=== PATIENT | female | born 1935 | race Caucasian/White ===

== ENCOUNTER 2019-03-08 06:14 | Inpatient (IN) | payer MEDICARE, SELFPAY ==
--- NOTE | 2019-03-02 09:54 | HP.PCM_ITS ---
History and Physical Patient Name: Kelly Hoffman : 1935 From: ANABEL BONILLA PA-C DATE OF SURGERY: 03/08/2019 SCHEDULED PROCEDURE: Left total hip arthroplasty HISTORY OF PRESENT ILLNESS: Preoperative history and physical exam was performed on March 11, 2019. This is an 83-year-old female who is been having ongoing pain in her left hip for the past 1 year. Pain can reach a size a 10/10 with activity. Pain has been intermittent, dull, aching, sharp. She has increased pain going up and down stairs, sitting, and getting up from a seated position. Patient has difficult time with activities of daily living including showering, getting dressed, housework, shopping, and picking things up from the floor. She has difficult time with exercises due to pain. Patient feels unsafe walking long distances without a cane. Patient has tried conservative measures consisting of rest with minimal relief. Patient has tried water therapy and home exercises with minimal relief. She has been on tramadol for pain control. Patient denies previous surgery on the left hip. She has used a cane and walker in the past 2 months. After failing conservative measures and discussing treatment options with Dr. Aayush Hoffman, the patient would like to proceed with a left total hip arthroplasty. We are obtaining surgical clearance from her primary care physician Dr. Eddie Hoffman. Patient currently denies any chest pain, shortness of breath, fevers chills, recent infections. Patient does have a medical history pertinent for previous blood clot and pulmonary embolism after her back surgery in 2013. She does have a history of a right total hip arthroplasty in 2004. REVIEW OF SYSTEMS: ROS: Const: Denies change in appetite, fever and weight change. CV: Denies chest pain, heart murmur and irregular heartbeat. Resp: Reports shortness of breath, but denies cough, pneumonia, tuberculosis and wheezing. GI: Reports constipation, but denies diarrhea, heartburn, nausea, rectal itching, bloody stools and vomiting. : Reports incontinence. Musculo: Reports pain and trouble walking, but denies leg swelling and weakness. Skin: Reports history of shingles, but denies Raynaud's and tattoo. Neuro: Denies ambulatory dysfunction, dizziness, numbness/tingling and tremor. Psych: Reports insomnia, but denies anxiety and stress. Jeffrey/Lymph: Reports past transfusion, but denies anemia and bleeding/bruising tendency. Reviewed and updated. PAST MEDICAL HISTORY: Advance Care Plan: Other Directive, POA Effective Date: 01/30/2019 Other Directive, LIVING WILL Effective Date: 01/30/2019 PMH: Medical Problems: Arthritis, History Of Phlebitis, Pulmonary Embolism, Hypercholesterolemia, Acid Reflux Accidents: None Surgical Hx: Knee Arthroscopy Rt - 1987 [facility] Carpal Tunnel Release LT - 1987 [facility] Carpal Tunnel Release RT - 1987 [facility] Hip Replacement RT - 2004 [facility] DR. CHAO Knee Replacement Rt - 2006 [facility] DR. CHAO Laminectomy - 2013 DR. CANDELARIO CASTAÑEDA Anesthesia Complications: None Assistive Devices: Glasses, Cane, Walker Reviewed and updated. SOCIAL HISTORY: SH: Marital: .Occupation: Retired.Work Status: Housewife.Hand Dominance: Right-handed. Personal Habits: Cigarette Use: Never Smoked Cigarettes.Smokeless Tobacco: Never Used Smokeless Tobacco.E-Cigarette Use: Never used.Alcohol: Occasionally.Drug Use: Denies Use.Enjoy Exercising: Exercises 1-3 X/Week. Reviewed, no changes. VITALS: Ht: 58 Wt: 192lb Wt k.091 BMI: 40.1 BP: 136/76 Pulse: 81 Resp: 20 T: 98.1 T: 36.7C ALLERGIES: Morphine Dilaudid MEDICATIONS: Pantoprazole Sodium 40 mg 1 by mouth every day, Fenofibrate 160 mg 1 by mouth every day, Multivitamin Adult 1 tab by mouth daily, Fish Oil 1000 mg 1 capsule 1x/day by mouth, Calcium 1200 3588-0514 MG-Unit 1 tab PO bid, Vitamin D 1 tab by mouth daily, Aspirin Adult 325 mg 1 tab PO daily, Ultram 50 mg 1-2 by mouth q6 hour as needed pain, Preservision Areds 1 cap PO daily PRE-OP EXAM: General appearance:NORMAL Other: Eyes: Conjunctivae and lids: NORMAL Pupils: ERR Ears, Nose, Mouth, and Throat: NORMAL Other: Inspection of lips, teeth and gums: NORMAL Other: Neck: Examination of neck: no masses noted. Respiratory: Assessment of respiratory effort: NORMAL Other: Auscultation of lungs: clear to auscultation no wheezes, rhonchi or rales. Cardiovascular: Auscultation of heart: regular rate and rhythm, no murmurs, gallops or rubs. Gastrointestinal: Exam of abdomen: soft, nontender, nondistended bowel sounds present. PHYSICAL EXAMINATION: Patient walks with an antalgic gait. Left hip range of motion 90 flexion with increased pain. Internal rotation is limited to 10, external rotation 45. Strength 4/5 hip flexion. Sensation intact to light touch. Neurovascularly intact. IMAGING STUDIES: X-rays were obtained at [facility] on March 11, 2019 including 2 views AP pelvis and AP left hip reveals joint space narrowing with osteophyte formation with moderate to severe arthrosis of the left hip. Centrally there is complete loss of joint space with inferior osteophyte formation. No acute finding for fracture or dislocation. No lytic or blastic lesions. There is evidence of previous lumbar fusion and right total hip arthroplasty. IMPRESSION: 1. Severe left hip osteoarthritis 2. History of previous blood clot and pulmonary embolism proximally 5 years ago 3. Hypercholesterolemia 4. Acid reflux PLAN: Dr. Aayush Hoffman did discuss and review with the patient all treatment options including surgical versus nonsurgical options. Patient does wish to proceed with the above-stated procedure. Potential risks, benefits, and complications of the procedure were discussed in detail including but not limited to , infection, nerve and blood vessel damage, persistent pain, numbness, tingling, paresthesias, blood clot, pulmonary embolism, and requirement for possible further surgery. The patient expressed full understanding and has no further questions for the doctor. Patient does agree to proceed with the above-stated procedure and has signed the surgery consent form. This dictation was created using voice recognition software. Phonetic and/or grammatical errors may exist. ___ I have re-examined the patient. There are no clinical changes since date of exam. ___ See progress notes for changes. ___ Dictated on admission Date: Time: Signature:
[2019-03-02 15:17] VITALS: BP 124/69; PULSE 84; RESP 17; TEMP 36.6; O2SAT 97; BMI 38.9
--- NOTE | 2019-03-02 15:52 | SDCEKG_ITS ---
Test Reason : Blood Pressure : / mmHG Vent. Rate : 070 BPM Atrial Rate : 070 BPM P-R Int : 110 ms QRS Dur : 070 ms QT Int : 386 ms P-R-T Axes : 000 016 040 degrees QTc Int : 416 ms Sinus rhythm with short OK Low voltage QRS Borderline ECG Confirmed by LAST INFANTE, TTAE ([id number]), editor index KAROL ODOM ([id number]) on 03/08/2019 9:46:54 A M Referred By: Aayush Hoffman Confirmed By:LAURA NI MD
[2019-03-02 16:33] LABS: Absolute Neutrophil Count 3.4 X10^3/uL (2.0-7.7); Basophil# 0.04 X10^3/uL; Basophil% 0.5 % (0-1); Eosinophil# 0.21 X10^3/uL; Eosinophils% 2.5 % (0-5); Hematocrit 46.2 % (37-47); Hemoglobin 14.6 g/dL (12.0-15.0); Lymphocyte % 51.4 % (19-41); Mean Corp Hgb Conc 31.6 g/dL (32-36); Mean Corpuscular Hgb 27.7 pg (27.0-32.0); Mean Corpuscular Volume 87.5 fL (81-99); Mean Platelet Vol. 9.1 fl (6.2-12.0); Monocyte# 0.49 X10^3/uL; Monocyte% 5.7 % (0-10); NRBC Flagged by Analyzer 0 % (0-5); Neutrophil # 3.39 X10^3/uL (2.7-7.7); Neutrophil % 39.5 % (47-70); Platelet Count 288 K/mm3 (150-450); RBC Distribution Width CV 13.5 % (11.6-14.6); RBC Distribution Width SD 43.7 fl (35.1-43.9); Red Blood Count 5.28 M/mm3 (4.2-5.4); White Blood Count 8.6 K/mm3 (4.4-11.0)
[2019-03-02 16:51] LABS: Anion Gap 5 (5-15); BUN 23 mg/dL (7-18); BUN/Creat Ratio 16.7 RATIO (10-20); Calcium,Total 10.1 mg/dL (8.5-10.1); Chloride 109 mmol/L (98-107); Creatinine, Serum 1.38 mg/dL (0.55-1.02); EST Glomerular Filtration Rate 39 mL/min (>60); Est Glom Filt Rate - Afr Amer 47 mL/min (>60); Estimated Creatinine Clearance 43.42 ml/min; Glucose 93 mg/dL (74-106); Potassium 4.5 mmol/L (3.5-5.1); Sodium Level 143 mmol/L (136-145)
[2019-03-08] VITALS (12 sets, daily range): BP systolic 108–152; BP diastolic 48–87; PULSE 73–96; RESP 16–18; TEMP 36.3–37.1; O2SAT 92–100; BMI 38.9; BMI 39.0
--- NOTE | 2019-03-08 07:16 | RAD_ITS ---
STUDY: X-RAY - PELVIS AND LEFT HIP REASON FOR EXAM: Female, 83 years old. Left hip arthroplasty. Postoperative evaluation. TECHNIQUE: 2 views of the pelvis and hip. COMPARISON: March 08, 2019 intraoperative exam. FINDINGS: Status post left hip arthroplasty. Surgical hardware intact/well aligned. No acute complications. Postoperative soft tissues overlie the left hip. Uncomplicated remote right hip arthroplasty. Partially visualized surgical fixation hardware. Pelvic phleboliths. RAD/Hip Min 2 Views (Portable) IMPRESSION: Uncomplicated recent left hip arthroplasty Uncomplicated remote right hip arthroplasty Electronically Signed: Maximiliano Hidalgo DO at 11:35 EDT Tel , Service support ,
[2019-03-08 07:36] LABS: Bedside Glucose 88 mg/dL (70-110)
[2019-03-08] MEDS: Celecoxib 200 MG Capsule 400 MG PO (07:46)
[2019-03-08] MEDS: Acetaminophen 500 MG Tablet 1000 MG PO ×3 (07:47→21:54)
[2019-03-08] MEDS: Lactated Ringers 1,000 ML 125 ML IV ×2 (07:47→21:55)
[2019-03-08] MEDS: Magnesium Sulfate 4gm/100mL 4 GM/100 ML IV.SOLN. IV (07:48)
[2019-03-08] MEDS: Lactated Ringers 1,000 ML 999 ML IV (07:58)
--- NOTE | 2019-03-08 08:15 | RAD_ITS ---
STUDY: X-RAY - PELVIS AND LEFT HIP REASON FOR EXAM: Female, 83 years old. Hip replacement. TECHNIQUE: 3 intraoperative fluoroscopic views. COMPARISON: None. FINDINGS: Intraoperative fluoroscopy. Reaming device with subsequent removal. Status post left hip arthroplasty. Surgical hardware intact/well aligned. No acute complications. Uncomplicated removal of right hip arthroplasty. Limited soft tissue and osseous details. RAD/Hip 1 view with Pelvis IMPRESSION: Uncomplicated intraoperative left hip arthroplasty Uncomplicated removal of right hip arthroplasty Please see surgeon's note Electronically Signed: Maximiliano Hidalgo DO at 10:53 EDT Tel , Service support ,
[2019-03-08] MEDS: Cefazolin 2 GM in 0.9% Normal Saline 100 ML IV (08:17)
--- NOTE | 2019-03-08 09:58 | OP.PCM_ITS ---
Report of Operation Date of Procedure: 03/08/19 Pre-Operative Diagnosis: Left hip primary osteoarthritis Post-Operative Diagnosis: Left hip primary osteoarthritis with loose bodies Surgery/Procedure Performed:: Left direct anterior total hip replacement, minimally invasive Description of Surgical Findings:: Stable hip, equal leg lengths. Intra-articular loose bodies were noted topographical engineer: Terri Rahman Type of Anesthesia:: General Anesthesiologist: Mani Soto Special Medications: 2 g Ancef, 2 g of TXA were lavaged in the wound for 1 minute followed by a irrigation., 10 mg Decadron, joint cocktail (30 mL of 0.5% Ropivicaine, 1000 units of epinephrine, 30 mg of Toradol) Specimen's removed: Bony cuts Estimated Blood Loss (mL): 150 Fluids Replaced: 900 mL crystalloid Description of Procedure: Components used: 1. Accolade 2 Yaa femoral stem size 4 127? 2. Yaa trident 2 acetabular shell size 52 mm 3. Yaa X3 polyethylene E 42 4. Marshall Biolox delta 28mm, 0mm femoral head 5. Yaa MDM liner E Brief history operative indications: 83f yo F who failed conservative measures for their hip osteoarthritis. X-rays were consistent with osteoarthritis including joint space narrowing, osteophyte formation and subchondral cysts. Total hip replacement was discussed with the patient with risks and benefits including but not limited to blood loss, DVTs, PEs, neurovascular damage, dislocation, general risks of anesthesia including loss of life. Patient demonstrated an understanding medical clearance is obtained the patient was consented for surgery. Procedure: On the date of procedure the patient's L hip was marked in the preoperative area. Patient was then taken back to the operating room where anesthesia assumed control of the C-spine and airway and administered anesthetic. Patient was transferred to the operating table and placed in the supine position. The hips were placed at the break of the bed and a sacral bump was placed. The L lower extremity was then prepped out in a sterile fashion using chlorhexidine while the surgeon scrubbed. The PA was vital in the positioning of the patient. Upon reentering the room the L lower extremity was draped in the standard orthopedic fashion and the incision was marked. A timeout was called and everyone agreed upon the side, the site, the procedure be performed, antibody given, and patient's identity. At this time incision was made through skin, subcutaneous tissue, and fat down to fascia. The fascia was then incised and the TFL was retracted laterally. A retractor was placed on the lateral border of the femoral neck. Attention was directed to the inferior portion of the approach and all crossing vessels were identified and appropriately coagulated. A retractor was then placed on the medial portion of the femoral neck. The anterior capsule was then cleared of all soft tissue and then H shaped capsulotomy was made. The retractors were then placed inside the capsule. The femoral neck was identified and a cleanup cut was made. At this time a power corkscrew was used to remove the femoral head. Attention was then turned toward the acetabulum where the soft tissues were appropriately retracted and the acetabulum was sequentially reamed to 52 mm. A 52 mm cup was then selected and impacted into place. Acetabular liner was impacted into place and locking mechanism was verified. The position of the acetabular cup was then verified under live fluoroscopy. Attention was then turned to the femur. Soft tissue releases on the medial and lateral femoral neck were appropriately done, the leg was externally rotated and lateralized. A Reyes retractor was placed medially and proximally to the greater trochanter this allowed appropriate visualization and exposure of the femoral canal. Rongeour was then used to remove excess lateral bone. A canal finder and entry broach were used to open the proximal canal. Once we verified we were down the femoral canal we subsequently broached up to a size 4 femur. The appropriate neck was placed in the previously selected head was trialed with a 0 mm neck. Traction was pulled and the hip was reduced with internal rotation. Once it was appropriately reduced and stability was checked. There was minimal shuck, equal leg lengths and appropriate stability with hyperextension and external rotation as well as with 90? flexion and internal rotation. Fluoroscopy was then also used to verify the position of the components and leg lengths using the contralateral side for comparison. The trial components were then dislocated the proximal femur was again exposed and the components were removed from the wound. The final components were verified and opened. The wound was copiously irrigated out with normal saline. The acetabulum was checked for any residual debris. The final components were placed and impacted. Traction and internal rotation were again used to reduce the hip. After adequate reduction the hip remained stable with appropriate leg lengths. The final components were once again checked with live fluoroscopy and were found to be satisfactory. The wound was then copiously irrigated with normal saline once more, and hemostasis was obtained. Closure was then done using #1 Vicryl runner to close the fascia. A 2-0 vicryl interuppted sutures were used to close the subcutaneous skin. A 3-0 Monocryl and Steri-Strips were used for final skin closure. A Silverlon dressing was placed. Patient was awakened by anesthesia and transferred to the [place]. Patient was then transferred to the PACU for recovery. Postoperative plan: Patient will get 24 hours postop antibiotics. Patient will get in-house physical therapy and will be weight-bear as tolerated. Patient will follow up in office in 2 weeks for a wound check and x-rays. Grafts/Implants Used: Marshall - Complications No intraoperative complications - Admit VTE Documentation VTE Present on Admission: No VTE Mechan Device Prophylaxis: SCD's, Thigh High TOLU Hose VTE Pharm Prophylaxis ordered?: Yes
[2019-03-08] MEDS: Ensure Surgery 237 ML LIQUID PO ×2 (13:25→17:38)
[2019-03-08] MEDS: oxyCODONE 5 MG Tablet 2.5 MG PO (13:30)
[2019-03-08] MEDS: Senna/Docusate Sodium 1 Tablet 2 TABLET PO ×2 (14:10→21:54)
[2019-03-08] MEDS: Cefazolin 1 GM/50 ML BAG IV ×2 (16:07→23:58)
[2019-03-09 03:06] VITALS: BP 132/52; PULSE 64; RESP 16; TEMP 36.4; O2SAT 97
[2019-03-09] MEDS: Rivaroxaban 10 MG Tablet PO (05:28)
[2019-03-09] MEDS: Acetaminophen 500 MG Tablet 1000 MG PO ×2 (05:29→13:48)
[2019-03-09 06:39] LABS: Hematocrit 37.4 % (37-47); Hemoglobin 11.6 g/dL (12.0-15.0); Mean Corpuscular Hgb 27.4 pg (27.0-32.0); Mean Corpuscular Volume 88.4 fL (81-99); Mean Platelet Vol. 9.7 fl (6.2-12.0); Platelet Count 221 K/mm3 (150-450); RBC Distribution Width SD 44.7 fl (35.1-43.9); Red Blood Count 4.23 M/mm3 (4.2-5.4); White Blood Count 13.7 K/mm3 (4.4-11.0)
--- NOTE | 2019-03-09 06:55 | PCM.PN.ORT ---
Subjective: Patient is doing well. No acute events overnight. Pain is mostly controlled with Tylenol with occasional dose of oxycodone. Patient notes she is been comfortable and been able to go to the bathroom with her walker without significant increases in pain. She tolerated therapy well yesterday. No chest pain or shortness of breath. No calf pain. Objective: Postoperative radiographs show stable well-placed left total hip replacement. - Physical Exam General: Alert, Oriented x3, Cooperative Extremities: - - Left lower extremity: Dressing is clean dry and intact Sensations intact to light touch saphenous, sural, superficial peroneal, deep peroneal, and tibial distributions Motors intact EHL, DF, PF calves are soft and supple Vital Signs Temp Pulse Resp BP Pulse Ox 97.5 F L 64 16 132/52 H 97 03/09/19 03:06 03/09/19 03:06 03/09/19 03:06 03/09/19 03:06 03/09/19 03:06 Oxygen Flow Rate (L/min) 6 Oxygen Delivery Method Room Air Weight: 192 lb 14.472 oz Body Mass Index (BMI) 38.9 Intake and Output for Last 24 Hours 03/07/19 03/08/19 03/09/19 23:59 23:59 23:59 Intake Total 3096.25 / 3216.25 778.33 / 778.33 Balance 3096.25 / 3216.25 778.33 / 778.33 Laboratory Tests Past 24 Hrs 03/09/19 03/09/19 05:58 05:58 WBC 13.7 H RBC 4.23 Hgb 11.6 L Hct 37.4 MCV 88.4 MCH 27.4 MCHC 31.0 L RDW Std Deviation 44.7 H RDW Coeff of Maliha 14.0 Plt Count 221 MPV 9.7 Sodium Pending Potassium Pending Chloride Pending Carbon Dioxide Pending Anion Gap Pending BUN Pending Creatinine Pending Est GFR (MDRD) Af Amer Pending Est GFR (MDRD) Non-Af Pending BUN/Creatinine Ratio Pending Glucose Pending Calcium Pending POC Glucose 03/08/19 07:17 POC Glucose 88 Medical Necessity - Tobacco Use Smoking Status: Never smoker Assessment/Plan Postop day 1 left direct anterior total hip replacement 1. DVT prophylaxis: Patient has history of PE Xarelto for 2 weeks followed by aspirin twice daily. 2. Pain control: Pain is well controlled with Tylenol and anti-inflammatories at this time. Educated patient on sparing use of narcotics. 3. Physical therapy: Patient will need stair training to get into her house she has a couple of stairs. She is done well with therapy so far. She has therapy set up for outpatient starting early next week. If she stays long enough today should have 2 therapies prior to discharge. 4. Disposition: Patient is done well. She had no acute events overnight. She is doing well with physical therapy. As long she continues to do well with therapy today we discussed discharged home today. She will need to work with the short flight of stairs in therapy. Discharge instructions were gone over with the patient today. [facility] Office:
[2019-03-09 07:01] LABS: Anion Gap 6 (5-15); BUN 24 mg/dL (7-18); BUN/Creat Ratio 17.6 RATIO (10-20); Calcium,Total 9.1 mg/dL (8.5-10.1); Chloride 110 mmol/L (98-107); Creatinine, Serum 1.36 mg/dL (0.55-1.02); EST Glomerular Filtration Rate 40 mL/min (>60); Est Glom Filt Rate - Afr Amer 48 mL/min (>60); Estimated Creatinine Clearance 44.05 ml/min; Glucose 122 mg/dL (74-106); Sodium Level 144 mmol/L (136-145)
[2019-03-09] MEDS: Famotidine 20 MG Tablet PO (08:13)
[2019-03-09] MEDS: Fenofibrate 145 MG Tablet PO (08:13)
[2019-03-09] MEDS: Pantoprazole Sodium 40 MG Tablet PO (08:14)
[2019-03-09] MEDS: Calcium Carbonate 500 MG Tablet 1000 MG PO (08:14)
[2019-03-09] MEDS: Meloxicam 7.5 MG Tablet PO (08:14)
[2019-03-09] MEDS: Multivitamins,Ther W-Minerals Tablet 1 TABLET PO (08:14)
[2019-03-09 08:15] VITALS: BP 124/46; PULSE 81; RESP 16; TEMP 36.9; O2SAT 98
[2019-03-09] MEDS: Ensure Surgery 237 ML LIQUID PO (08:15)
--- NOTE | 2019-03-09 08:42 | PCM.DC.THR ---
Discharge Diet: No Restrictions Discharge Activity: May Not Drive - while taking narcotic pain medications. May shower in (days): 1 - Turn dressing away from water Ice area for (Minutes): 20 - Every 1-2 hours while awake Weight Bearing Status: Weight bearing as tolerated Elevate: Operative Extremity Additional Activity Instructions:: Wear elastic stockings for 2 weeks. DO NOT use alcohol with narcotic pain medication. DO NOT make important decisions while taking narcotic medication. If you have problems with taking your medication (rash, itching, nausea, etc.) call the office at once. Call your doctor if your incision/area has: Increased Pain/ Swelling, Increased Redness, Foul Smelling Discharge Call your doctor if you observe: Fever of 101 or Higher Remove Dressing in (days):: 4 - Okay to remove dressing on March 13, 2019 Additional Instructions: Follow orthopedic postop instructions Allergies/Adverse Reactions: Allergies gabapentin Allergy (Verified 03/08/19 10:42) Other Made me go crazy hydromorphone [From Dilaudid] Allergy (Verified 03/08/19 07:27) Vomiting morphine Allergy (Verified 03/08/19 07:27) Vomiting paregoric Allergy (Verified 03/08/19 07:27) Vomiting Medications to take at Discharge Aspirin 325 mg PO DAILY@0800 03/02/19 Calcium Carbonate [Calcium] 1,200 mg PO DAILY 03/02/19 Cholecalciferol (VIT D3) [Vitamin D3] 1,000 unit PO DAILY 03/02/19 Fenofibrate 160 mg PO DAILY 03/02/19 Multivitamin/Iron/Folic Acid [Centrum Adults Tablet] 1 ea PO DAILY 03/02/19 Hutchinson-3/Dha/Epa/Fish Oil [Fish Oil 1,000 mg Softgel] 1 ea PO DAILY 03/02/19 Pantoprazole Sodium [Protonix] 40 mg PO DAILY 03/02/19 Vit C/E/Zn/Coppr/Lutein/Zeaxan [Preservision Areds 2 Softgel] 1 ea PO DAILY 03/02/19 Acetaminophen [Tylenol] 1,000 mg PO Q8 tab 03/09/19 Ensure Surgery 237 ml PO BID #30 liquid 03/09/19 Famotidine [Pepcid] 20 mg PO DAILY #30 tab 03/09/19 Meloxicam [Mobic] 7.5 mg PO BID #30 tab 03/09/19 Oxycodone [Oxyir] 2.5 mg PO Q4H PRN PRN #30 tab 03/09/19 Rivaroxaban [Xarelto] 10 mg PO DAILY@0600 #14 tab 03/09/19 Senna/Docusate Sodium [Senokot-S] 2 tab PO BID tab 03/09/19 The following prescriptions were given: Ensure Surgery 237 ml PO BID #30 liquid Prescription Printed Meloxicam [Mobic] 7.5 mg PO BID #30 tab Transmission Status: Received by [facility] Oxycodone [Oxyir] 2.5 mg PO Q4H PRN PRN #30 tab PRN Reason: Pain Score 4-10/10 Transmission Status: Received by [facility] Famotidine [Pepcid] 20 mg PO DAILY #30 tab Transmission Status: Received by [facility] Rivaroxaban [Xarelto] 10 mg PO DAILY@0600 #14 tab Transmission Status: Received by [facility] Primary Care Physician: Eddie Hoffman MD [Primary Care Provider] - Test Results: Test results from this visit will be discussed in further detail at your follow-up appointment, if applicable. Please Follow Up With: Physical Therapy @ [facility] When: 03/13/19 Please Follow Up With: Ceferino Avila PA-C When: 03/22/19 @ 9:45 am
--- NOTE | 2019-03-09 11:15 | CASEMGMT ---
NELLIE SON Face to Face with patient for initial transition planning/care coordination assessment. NELLIE SON introduced self and role at [facility]. Patient sitting in chair, alert and oriented, family at bedside. Patient willing to participate in assessment and is able to answer all questions appropriately. Care providers, pharmacy, and demographics verified. Patient wishes to discharge home and is setup with [facility] in [place] for outpatient therapy. Patient states she has no further needs or concerns at this time. CM to follow for discharge planning needs that may arise. PCP: Ailyn Hoffman Specialists: jessika Musa; dimple Wright [facility]acy: [facility] Insurance: [employer] Prescription Benefit: yes Living Will/HPOA: yes, son Eddie Hoffman HPOA LNOK: , children Living Arrangements: Patient lives with , granddaughter and her family in single story home with finished basement. Patient states she was independent at home prior to surgery. Transportation: , family DME/HHC: Patient states she has shower chair, raised toilet, cane, walker, and wheelchair at home. Patient has outpatient therapy setup at [facility] in [place] for Wednesday. Disposition Plan: Patient to discharge home with outpatient therapy, family support, and follow-up plans in place. Caitlyn EASLEY, RN, CM
[2019-03-09 14:55] VITALS: BP 128/66; PULSE 80; RESP 18; TEMP 37.2; O2SAT 99
[2019-03-09] MEDS: oxyCODONE 5 MG Tablet 2.5 MG PO (14:56)
== END 2019-03-09 17:57 | disposition home or self-care (01) | DRG 470 ==
LOC: ACINP 06:15 → MS3 08:16
PROVIDERS: Admitting Provider Specialist; Family Provider Family Medicine; PCP Family Medicine; Referring Provider Specialist; Visit Provider Specialist
PROC: 0SRB04A Replacement of Left Hip Joint with Ceramic on Polyethylene Synthetic Substitute, Uncemented, Open Approach (ICD-10-PCS; CPT 27284; principal; 2019-03-08 07:50)
DX: M16.12 Unilateral primary osteoarthritis, left hip (principal); M24.052 Loose body in left hip; K21.9 Gastro-esophageal reflux disease without esophagitis; E78.00 Pure hypercholesterolemia, unspecified; Z96.641 Presence of right artificial hip joint; Z86.711 Personal history of pulmonary embolism
CPT/HCPCS: 36415; 73501; 73502; 76000; 80048; 82962; 85025; 85027; 87081; 93005; 97110; 97162; 97166; 97530; 97535; 99251; C1776; J7120; G0463; J2405

== ENCOUNTER → 2019-04-25 09:12 | Outpatient (CLI) | payer MEDICARE, SELFPAY ==
[2019-03-08 12:15] VITALS: BMI 38.9
--- NOTE | 2019-04-25 09:14 | RAD_ITS ---
PROCEDURE: Fluoroscopic guided right shoulder Injection DATE: April 25, 2019. INDICATION: Female, 83 years old. Chronic shoulder pain. PHYSICIAN: Sean Quinatna M.D. MEDICATIONS: 12 mg of betamethasone and 4 cc of 1% lidocaine. 2% Lidocaine administered subcutaneously for local anesthesia. ACCESS SITE: Right shoulder. NEEDLE: 22-gauge spinal needle. FLUOROSCOPY TIME (if supplied): (1:04) minutes/seconds FINDINGS: The risks, benefits, and alternatives to the procedure were explained to the patient. The specific risks of bleeding, infection, and neurovascular injury were detailed and accepted. Witnessed informed consent was obtained. A 22-gauge spinal needle was positioned under renographic fluoroscopic localization. Approximately 2 cc of Isovue-300 instilled for localization purposes. Medication was then injected. The patient tolerated the procedure well without any immediate complications. RAD/Inj/Asp Jorge Luis Jt Should/Hip/Knee IMPRESSION: 1. Successful fluoroscopic guided right shoulder injection. Electronically Signed: Sean Quintana, at 10:15 EST , Service support ,
== END ==
PROVIDERS: Family Provider Family Medicine; PCP Family Medicine; Referring Provider Specialist; Visit Provider Specialist
DX: M25.511 Pain in right shoulder (principal)
CPT/HCPCS: 20610; 77002; Q9967; J0702

== ENCOUNTER → 2021-03-07 | Outpatient (CLI) | payer MEDICARE, SELFPAY | END | disposition home or self-care (01) | PROVIDERS: PCP Family Medicine; Referring Provider Physician Assistant Surgical; Visit Provider Physician Assistant Surgical | DX: Z11.52 Encounter for screening for COVID-19 (principal) | CPT/HCPCS: 87635; U0005; U0003 ==

== ENCOUNTER 2023-02-20 06:53 | Inpatient (IN) | payer MEDICARE, SELFPAY ==
[2023-02-20] VITALS (29 sets, daily range): BP systolic 84–136; BP diastolic 60–94; PULSE 51–122; RESP 16–29; TEMP 36.3–37.1; O2SAT 91–99; BMI 40.1; BMI 40.4
--- NOTE | 2023-02-20 07:05 | EKG12_ITS ---
Test Reason : AFIB Blood Pressure : / mmHG Vent. Rate : 120 BPM Atrial Rate : 000 BPM P-R Int : 000 ms QRS Dur : 076 ms QT Int : 338 ms P-R-T Axes : 000 056 052 degrees QTc Int : 477 ms Critical Test Result: STEMI Atrial fibrillation with rapid ventricular response ST elevation, consider posterior lateral injury or acute infarct ACUTE OH / STEMI Abnormal ECG Confirmed by KESHAWN INFANTE, BELLE ([id number]), assistant film editor DERRICK NOGUEIRA ([id number]) on 02/23/2023 2:47:26 PM Referred By: Estelle Villegas Confirmed By:BELLE LIAO MD
--- NOTE | 2023-02-20 07:12 | EDS_ITS ---
HPI History of Present Illness Chief Complaint: Weakness Narrative Narrative: Presents by private vehicle reported an hour ago sudden weakness all over diffuse sweatiness and dry heaving. Denies any direct chest pressure or back pain. No cardiac history. History of hyperlipidemia. Denies hypertension or diabetes. Reports was unable to sleep throughout the night however denied any specific symptoms until an hour ago. Currently only has symptoms of generalized weakness. Prior similar symptoms: No PFSH PFSH Home Medications aspirin 325 mg tablet 325 mg PO DAILY@0800 [facility] 03/02/19 [History Last Taken Unknown] calcium carbonate 600 mg calcium (1,500 mg) tablet 1,200 mg PO DAILY supplement 03/02/19 [History Last Taken Unknown] cholecalciferol (vitamin D3) 25 mcg (1,000 unit) tablet 1,000 unit PO DAILY supplement 03/02/19 [History Last Taken Unknown] fenofibrate 160 mg tablet 160 mg PO DAILY cholesterol 03/02/19 [History Last Taken Unknown] multivitamin-ferrous fumarate-folic acid 18 mg-400 mcg tablet 1 ea PO DAILY supplement 03/02/19 [History Last Taken Unknown] omega 3-qlh-dvn-fish oil 300 mg-1,000 mg capsule 1 ea PO DAILY supplement 03/02/19 [History Last Taken Unknown] vit C 250 mg-vit E 90 mg-zinc 40 mg-copper 1 zp-rwobse-mdkduh capsule 1 ea PO DAILY supplement 03/02/19 [History Last Taken Unknown] acetaminophen 500 mg tablet 1,000 mg (2 x 500 mg) PO Q8 03/09/19 [Rx Last Taken Unknown] famotidine 20 mg tablet 20 mg PO DAILY #30 tabs 03/09/19 [Rx Last Taken Unknown] meloxicam 7.5 mg tablet 7.5 mg PO BID #30 tabs 03/09/19 [Rx Last Taken Unknown] nut.tx.comp. immune systm,reg 0.08 gram-1.4 kcal/mL oral liquid 237 ml PO BID ##30 03/09/19 [Rx Last Taken Unknown] sennosides 8.6 mg-docusate sodium 50 mg tablet 2 tab PO BID 03/09/19 [Rx Last Taken Unknown] Allergy/AdvReac Type Severity Reaction Status Date / Time gabapentin Allergy Other Verified 02/20/23 07:33 hydromorphone [From Dilaudid] Allergy Vomiting Verified 02/20/23 07:33 morphine Allergy Vomiting Verified 02/20/23 07:33 paregoric Allergy Vomiting Verified 02/20/23 07:33 Surgical History History of back surgery History of knee surgery Social History Smoking Status: Never smoker ROS ROS ED Constitutional Constitutional ED: Reports sweats; Denies chills or fever(s) Eyes Eyes: Denies change in vision ENT ENT ED: Denies dysphagia or sore throat Cardiovascular Cardiovascular: Denies chest pain, leg edema, palpitations or racing heartbeat Respiratory/Chest Respiratory/Chest: Denies cough, dyspnea or dyspnea on exertion Gastrointestinal Gastrointestinal: Reports nausea and vomiting; Denies abdominal pain or diarrhea Genitourinary Genitourinary ED: Denies dysuria, hematuria or urinary frequency Musculoskeletal Musculoskeletal: Denies back pain, extremity pain or neck pain Integumentary Denies rash or wounds Neurologic Neurologic: Reports weakness; Denies headache(s) or paresthesias EXAM Physical Exam Const Vital Signs: 02/20/23 06:56 02/20/23 07:07 02/20/23 07:05 Temperature 98.7 F Temperature Source Oral Pulse Rate 114 H Respiratory Rate 21 H 19 H Blood Pressure 115/94 H 113/82 H Blood Pressure Mean 101 Pulse Ox 93 Oxygen Delivery Method Room Air Room Air Oxygen Flow Rate (L/min) 02/20/23 07:21 Temperature Temperature Source Pulse Rate 97 Respiratory Rate 16 Blood Pressure 98/75 Blood Pressure Mean 82 Pulse Ox 91 Oxygen Delivery Method Nasal Cannula Oxygen Flow Rate (L/min) 4 Positive well nourished and well developed General Appearance ED: well developed and NAD HEENT Reports moist mucous membranes normocephalic and atraumatic Eyes PERRL, EOMs intact bilaterally and conjunctivae normal General Eye ED: Yes normal appearance of both eyes Neck no lymphadenopathy and supple General: Negative for tenderness Chest Wall Chest: Negative for tenderness Resp normal respiratory effort and normal air movement Effort and Inspection: symmetric chest movement; Negative for respiratory distress Cardio regular rate, regular rhythm and no murmurs Rate: tachycardic Peripheral Pulses: pulses 2+ throughout GI normal to inspection, nondistended, normoactive bowel sounds and non-tender Palpation: Negative for guarding or rebound tenderness present Back/Spine no CVA tenderness and no thoracic nor lumbar tenderness Extremity normal to inspection General Extremety ED: Negative for edema or tenderness General Extremity: Negative for edema Neuro oriented x3 and no sensory deficits noted Sensorium / Orientation: awake and alert Skin no rashes or lesions noted and no wounds MDM MDM MDM Narrative Medical decision making narrative: Interventions / MDM: Differential diagnosis: STEMI, ACS Diagnosis considered but do not suspect: N/A My EKG interpretation: Sinus rate of 120,'s ST elevations lateral leads with reciprocal depressions on the anterior leads. The chronically reading A-fib however appears more sinus rhythm with Q waves noted on inferior leads. Imaging independently reviewed and interpreted by myself: External documents reviewed: N/A Test considered but not ordered:N/A ED course: EKG was given to me prior to seeing the patient. Concerning STEMI. This was activated. Aspirin ordered. Cardiac labs. I spoke with interventional cardiology Dr. Villegas, EKG sent to him agrees. History of Brilinta heparin and metoprolol 10 mg IV ordered per his request. Patient updated. I did speak with hospitalist Dr. Marcial updated on findings and pending cath for ICU placement. per nursing after 5 mg IV Lopressor heart rate 90s however blood pressure systolic 90s. Withheld additional 5 mg. She was given fluids. Prior to going to [facility] mild chest pressure, fentanyl 25 mics IV was ordered. Patient taken to [facility] prior to chest x-ray. Results with patient in the cath creatinine 1.6, troponin at 973. Re-evaluation: stable Disposition discussed with patient/family/significant other: Patient and family Case discussed with consulting clinician: pet caregiver, [facility] list This note was generated with [employer] dictation software. It may contain incorrect words, spelling, and punctuation that were not noted in checking the note before signing. Lab Data Attestation: I reviewed the patient's lab results. Labs: Laboratory Results - last 24 hr 02/20/23 07:07 WBC 11.0 RBC 5.65 H Hgb 14.9 Hct 49.4 H MCV 87.4 MCH 26.4 L MCHC 30.2 L RDW Std Deviation 46.0 H RDW Coeff of [place] 14.4 Plt Count 240 MPV 9.6 Immature Gran % (Auto) 0.300 Neut % (Auto) 28.4 L Lymph % (Auto) 61.7 H [place] % (Auto) 5.1 Eos % (Auto) 3.9 Baso % (Auto) 0.6 Absolute Neuts (auto) 3.1 Absolute Lymphs (auto) 6.78 H Nucleated RBC % 0 PT 13.8 INR 1.1 APTT 25.0 Sodium 142 Potassium 4.0 Chloride 110 H Carbon Dioxide 26.0 Anion Gap 6 BUN 27 H Creatinine 1.62 H Estim Creat Clear Calc 35.46 Est GFR (MDRD) Af Amer 39 L Est GFR (MDRD) Non-Af 32 L BUN/Creatinine Ratio 16.7 Glucose 223 H Calcium 9.7 Troponin I High Sens 973 H* Critical Care Time Critical Care Time: Yes Critical care time (excluding procedures): 30-74 minutes, Discussing w/Patient &/or Family/Wagon Washer, Discussing w/Consultants, Arranging Admission or Transfer, Performing Direct Patient Care at Bedside and - (30 minutes) Discharge Plan Dx/Rx/DC Orders Clinical Impression: STEMI (ST elevation myocardial infarction), Tachycardia, Weakness, Renal insufficiency Disposition Disposition: Acute Care Hospital [facility]
[2023-02-20] MEDS: Heparin Injection (Vial) 5,000 UNIT/ML VIAL 5000 UNIT IV (07:14)
[2023-02-20] MEDS: Metoprolol Tartrate 5 MG/5 ML Vial 10 MG IV (07:14)
[2023-02-20] MEDS: Ondansetron 4 MG/2 ML Vial IV (07:14)
[2023-02-20 07:15] LABS: Absolute Lymphocyte Count 6.78 X10^3/uL (0.83-4.51); Absolute Neutrophil Count 3.1 X10^3/uL (2.0-7.7); Basophil# 0.07 X10^3/uL; Basophil% 0.6 % (0-1); Eosinophil# 0.43 X10^3/uL; Eosinophils% 3.9 % (0-5); Hematocrit 49.4 % (37-47); Hemoglobin 14.9 g/dL (12.0-15.0); Lymphocyte # 6.78 X10^3/ul (0.83-4.51); Lymphocyte % 61.7 % (19-41); Mean Corp Hgb Conc 30.2 g/dL (32-36); Mean Corpuscular Hgb 26.4 pg (27.0-32.0); Mean Corpuscular Volume 87.4 fL (81-99); Mean Platelet Vol. 9.6 fl (6.2-12.0); Monocyte# 0.56 X10^3/uL; Monocyte% 5.1 % (0-10); NRBC Flagged by Analyzer 0 % (0-5); Neutrophil # 3.11 X10^3/uL (2.7-7.7); Neutrophil % 28.4 % (47-70); POSITIVE DIFFERENTIAL YES; Platelet Count 240 K/mm3 (150-450); RBC Distribution Width CV 14.4 % (11.6-14.6); Red Blood Count 5.65 M/mm3 (4.2-5.4)
[2023-02-20] MEDS: TICAGRELOR 90 MG TABLET 180 MG PO (07:15)
[2023-02-20] MEDS: Aspirin 81 MG TAB.CHEW 324 MG PO (07:15)
[2023-02-20 07:18] LABS: Differential Indicated SCAN CRITERIA MET
[2023-02-20 07:23] LABS: International Normalized Ratio 1.1; Prothrombin Time (Protime)PT. 13.8 SECONDS (11.7-14.9)
--- NOTE | 2023-02-20 07:34 | PCM.HP.STD ---
HPI - General General Date of Admission: 02/20/23 Date of Service: 02/20/23 Chief Complaint: Weakness, diaphoresis HPI Narrative KIRK CARVER, is a 87 F with history of chronic knee and back pain who presented to [facility] 02/20/2023 with 2 hours of weakness, diaphoresis, general feeling of malaise. In the ED she had sinus arrhythmia on telemetry and had EKG that appeared consistent with a lateral STEMI. STEMI alert called and she was given aspirin, Brilinta, metoprolol and cardiology contacted. Hospitalist consulted for admission. Patient seen with son/MPOA at bedside. She reports that she gets up every 2 hours overnight to urinate and when she got up a couple hours ago she suddenly began to feel sweaty and weak and had nausea, denies any symptoms leading up to that. In the ED began to develop chest pressure that went towards her back. Has a slight headache and reports she often will wake up with morning headaches and has had some right tooth pain that she does not think is new. Denies stress test or heart cath in the past but had a echocardiogram January 2022 and reports she thinks she had some ventricular thickening but no other abnormalities. In the ED she still feeling sweaty and unwell, slightly less nauseous but has the chest pressure in the center of her chest that may be going to her back, denies any present shortness of breath but reports she gets easily short of breath on exertion which is why they checked an echocardiogram in January 2022. Does not follow with a supervisor taping. No other complaints at this time. [facility] Home Medications aspirin 325 mg tablet 325 mg PO DAILY@0800 [facility] 03/02/19 [History Last Taken Unknown] calcium carbonate 600 mg calcium (1,500 mg) tablet 1,200 mg PO DAILY supplement 03/02/19 [History Last Taken Unknown] cholecalciferol (vitamin D3) 25 mcg (1,000 unit) tablet 1,000 unit PO DAILY supplement 03/02/19 [History Last Taken Unknown] fenofibrate 160 mg tablet 160 mg PO DAILY cholesterol 03/02/19 [History Last Taken Unknown] multivitamin-ferrous fumarate-folic acid 18 mg-400 mcg tablet 1 ea PO DAILY supplement 03/02/19 [History Last Taken Unknown] omega 6-mms-fpd-fish oil 300 mg-1,000 mg capsule 1 ea PO DAILY supplement 03/02/19 [History Last Taken Unknown] vit C 250 mg-vit E 90 mg-zinc 40 mg-copper 1 gp-nxtxkz-mntntn capsule 1 ea PO DAILY supplement 03/02/19 [History Last Taken Unknown] acetaminophen 500 mg tablet 1,000 mg (2 x 500 mg) PO Q8 03/09/19 [Rx Last Taken Unknown] famotidine 20 mg tablet 20 mg PO DAILY #30 tabs 03/09/19 [Rx Last Taken Unknown] meloxicam 7.5 mg tablet 7.5 mg PO BID #30 tabs 03/09/19 [Rx Last Taken Unknown] nut.tx.comp. immune systm,reg 0.08 gram-1.4 kcal/mL oral liquid 237 ml PO BID ##30 03/09/19 [Rx Last Taken Unknown] sennosides 8.6 mg-docusate sodium 50 mg tablet 2 tab PO BID 03/09/19 [Rx Last Taken Unknown] Allergy/AdvReac Type Severity Reaction Status Date / Time gabapentin Allergy Other Verified 02/20/23 07:33 hydromorphone [From Dilaudid] Allergy Vomiting Verified 02/20/23 07:33 morphine Allergy Vomiting Verified 02/20/23 07:33 paregoric Allergy Vomiting Verified 02/20/23 07:33 Surgical History History of back surgery History of knee surgery Social History Smoking Status: Never smoker ROS ROS Narrative General: Denies fever/chills HENT: Slight headache, denies stuffy nose, denies sore throat EYES: Denies changes in vision Resp: Denies cough, easily short of breath Cardiac: Developing some chest pressure GI: Denies abdominal pain, denies changes in bowel, has had some nausea and vomiting : Denies changes in urination but urinates frequently especially overnight Extremity: Denies swelling MSK: Feels generally weak Neuro: Denies any numbness/tingling Heme: Denies any bleeding or bruising Skin: Denies rashes Psychiatric: No complaints voiced Vital Signs Vital Signs Vital Signs: 02/20/23 06:56 02/20/23 07:07 02/20/23 07:05 Temperature 98.7 F Temperature Source Oral Pulse Rate 114 H Respiratory Rate 21 H 19 H Blood Pressure 115/94 H 113/82 H Blood Pressure Mean 101 Pulse Ox 93 Oxygen Delivery Method Room Air Room Air Oxygen Flow Rate (L/min) 02/20/23 07:21 Temperature Temperature Source Pulse Rate 97 Respiratory Rate 16 Blood Pressure 98/75 Blood Pressure Mean 82 Pulse Ox 91 Oxygen Delivery Method Nasal Cannula Oxygen Flow Rate (L/min) 4 Weight Weight: 90.1 kg Body Mass Index (BMI) 40.1 Physical Exam Narrative General: Alert, oriented, no apparent distress HEENT: Atraumatic, normocephalic Eyes: Anicteric, normal conjunctiva, extraocular movements grossly intact Neck: Supple Respiratory: Clear to auscultation bilaterally, normal respiratory effort Cardiovascular: Low-grade tachycardia and irregular GI: Soft, nontender, nondistended Extremities: No significant pitting edema Musculoskeletal: Moving all extremities Neuro: No overt focal neurological deficits Skin: No rashes appreciated Psych: Cooperative Results Lab / Micro Data 02/20/23 07:07 02/20/23 07:07 Labs: Laboratory Results - last 24 hr 02/20/23 07:07: WBC 11.0, RBC 5.65 H, Hgb 14.9, Hct 49.4 H, MCV 87.4, MCH 26.4 L, MCHC 30.2 L, RDW Std Deviation 46.0 H, RDW Coeff of [place] 14.4, Plt Count 240, MPV 9.6, Immature Gran % (Auto) 0.300, Neut % (Auto) 28.4 L, Lymph % (Auto) 61.7 H, [place] % (Auto) 5.1, Eos % (Auto) 3.9, Baso % (Auto) 0.6, Absolute Neuts (auto) 3.1, Absolute Lymphs (auto) 6.78 H, Nucleated RBC % 0, PT 13.8, INR 1.1, APTT 25.0 Assessment & Plan Assessment/Plan (1) STEMI (ST elevation myocardial infarction): PLAN: Plan #STEMI -Patient with EKG consistent with lateral STEMI and ED -STEMI alert called -Patient given aspirin, Brilinta, metoprolol, verapamil -Cardiology consulted, [facility] activated and patient to go to [facility] at this time -Troponin and BMP pending, will follow levels -Echocardiogram ordered -Lipid panel -Statin -Further management pending catheter findings #Chronic back and knee pain -Supportive care #History of elevated creatinine -Only values we have are in 2019 and appeared consistent with CKD with creatinine of 1.36 and 1.38 respectively -BMP pending #DVT ppx: SCDs ordered Theresa Marcial MD Time spent in the patient's overall evaluation,decision-making process, review of diagnostic data, adjustment of management, discussion with other providers, nursing nursing and ancillary staff involved in patient's care documentation, 56 minutes Charges/Coding Visit Charges Inpatient E&M: 52922 Init Hosp L2
[2023-02-20] MEDS: fentaNYL 100 MCG/2 ML Ampul 25 MCG IV (07:40)
[2023-02-20 07:47] LABS: Anion Gap 6 (5-15); BUN 27 mg/dL (7-18); BUN/Creat Ratio 16.7 RATIO (10-20); Calcium,Total 9.7 mg/dL (8.5-10.1); Chloride 110 mmol/L (98-107); Creatinine, Serum 1.62 mg/dL (0.55-1.02); EST Glomerular Filtration Rate 32 mL/min (>60); Est Glom Filt Rate - Afr Amer 39 mL/min (>60); Estimated Creatinine Clearance 35.46 ml/min; Glucose 223 mg/dL (74-106); Sodium Level 142 mmol/L (136-145); Troponin-I HS 973 pg/mL (3.0-54.0)
--- NOTE | 2023-02-20 08:37 | CON.PCM.CA_ITS ---
Assessment & Plan Assessment/Plan (1) STEMI (ST elevation myocardial infarction): PLAN: After obtaining informed consent, patient was taken emergently to the cardiac catheterization lab. Coronary angiography revealed totally occluded pr oximal left circumflex coronary artery. Successful percutaneous intervention was performed with aspiration thrombectomy and placement of a 3.5 x 15 mm Resolute [place] drug-eluting stent. Excellent results were noted with zoroastrian of LARA-3 flow. Overall left ventricular systolic function noted to be normal on left ventriculogram. We will also check 2D echocardiogram with Doppler. Continue dual antiplatelet agents. (2) Coronary artery disease: PLAN: Antiplatelet agents. Low-dose beta-blockers. Statins. (3) Atrial fibrillation: PLAN: In the setting of acute AK. Will monitor. If persistent, then will start on anticoagulation. (4) Renal insufficiency: PLAN: Monitor creatinine. (5) Dyslipidemia: PLAN: Atorvastatin. HPI Consult Data Date of Consult: 02/20/23 HPI Narrative Reason for Consultation: STEMI HPI Narrative: 87-year-old female with past medical history significant for dyslipidemia. She presented to the emergency room after feeling weak and diaphoretic at home earlier this morning. On arrival in the emergency room, an ECG was done. This showed changes consistent with acute posterior and lateral ST elevation myocardial infarction. A STEMI alert was called. Patient denies any chest pains. No shortness of breath. Denies any previous history of coronary artery disease. No orthopnea. No PND. PFSH Home Medications aspirin 325 mg tablet 325 mg PO DAILY@0800 [facility] 03/02/19 [History Last Taken Unknown] calcium carbonate 600 mg calcium (1,500 mg) tablet 1,200 mg PO DAILY supplement 03/02/19 [History Last Taken Unknown] cholecalciferol (vitamin D3) 25 mcg (1,000 unit) tablet 1,000 unit PO DAILY supplement 03/02/19 [History Last Taken Unknown] fenofibrate 160 mg tablet 160 mg PO DAILY cholesterol 03/02/19 [History Last Taken Unknown] multivitamin-ferrous fumarate-folic acid 18 mg-400 mcg tablet 1 ea PO DAILY sup plement 03/02/19 [History Last Taken Unknown] omega 1-aqz-iyu-fish oil 300 mg-1,000 mg capsule 1 ea PO DAILY supplement 03/02/19 [History Last Taken Unknown] vit C 250 mg-vit E 90 mg-zinc 40 mg-copper 1 sg-riwdrc-aenffh capsule 1 ea PO DAILY supplement 03/02/19 [History Last Taken Unknown] acetaminophen 500 mg tablet 1,000 mg (2 x 500 mg) PO Q8 03/09/19 [Rx Last Taken Unknown] famotidine 20 mg tablet 20 mg PO DAILY #30 tabs 03/09/19 [Rx Last Taken Unknown] meloxicam 7.5 mg tablet 7.5 mg PO BID #30 tabs 03/09/19 [Rx Last Taken Unknown] nut.tx.comp. immune systm,reg 0.08 gram-1.4 kcal/mL oral liquid 237 ml PO BID ##30 03/09/19 [Rx Last Taken Unknown] sennosides 8.6 mg-docusate sodium 50 mg tablet 2 tab PO BID 03/09/19 [Rx Last Taken Unknown] Allergy/AdvReac Type Severity Reaction Status Date / Time gabapentin Allergy Other Verified 02/20/23 07:33 hydromorphone [From Dilaudid] Allergy Vomiting Verified 02/20/23 07:33 morphine Allergy Vomiting Verified 02/20/23 07:33 paregoric Allergy Vomiting Verified 02/20/23 07:33 Surgical History History of back surgery History of knee surgery Social History Smoking Status: Never smoker Physical Exam Narrative Comfortable. No apparent distress. Heart sounds 1 and 2 are noted. Irregularly irregular. Chest clear to auscultation bilaterally. Abdomen soft. Alert oriented x3. No ankle edema. Risk Stratification Risk Stratification Applicable: No Objective Data Vital Signs: Vital Signs Temp Pulse Resp BP Pulse Ox O2 Del Method O2 Flow Rate 97.7 F L 97 22 H 105/68 98 Room Air 4 02/20/23 08:16 02/20/23 08:16 02/20/23 08:16 02/20/23 08:16 02/20/23 08:16 02/20/23 08:16 02/20/23 07:35 Oxygen Flow Rate (L/min) 4 Oxygen Delivery Method Room Air Weight: 198 lb 10.184 oz Body Mass Index (BMI) 40.1 Lab / Micro Data Attestation: I reviewed the patient's lab results. 02/20/23 07:07 02/20/23 07:07 Labs: Laboratory Results - last 24 hr 02/20/23 07:07: WBC 11.0, RBC 5.65 H, Hgb 14.9, Hct 49.4 H, MCV 87.4, MCH 26.4 L , MCHC 30.2 L, RDW Std Deviation 46.0 H, RDW Coeff of [place] 14.4, Plt Count 240, MPV 9.6, Immature Gran % (Auto) 0.300, Neut % (Auto) 28.4 L, Lymph % (Auto) 61.7 H, [place] % (Auto) 5.1, Eos % (Auto) 3.9, Baso % (Auto) 0.6, Absolute Neuts (auto) 3.1, Absolute Lymphs (auto) 6.78 H, Nucleated RBC % 0, PT 13.8, INR 1.1, APTT 25.0, Sodium 142, Potassium 4.0, Chloride 110 H, Carbon Dioxide 26.0, Anion Gap 6, BUN 27 H, Creatinine 1.62 H, Estim Creat Clear Calc 35.46, Est GFR (MDRD) Af Amer 39 L, Est GFR (MDRD) Non-Af 32 L, BUN/Creatinine Ratio 16.7, Glucose 223 H, Calcium 9.7, Troponin I High Sens 973 H* Rhythm Strip Rhythm Strip: A-fib Cardiology Labs/Tests 02/20/23 07:07: WBC 11.0, RBC 5.65 H, Hgb 14.9, Hct 49.4 H, MCV 87.4, MCH 26.4 L , MCHC 30.2 L, Plt Count 240, MPV 9.6, Immature Gran % (Auto) 0.300, Neut % (Auto) 28.4 L, Lymph % (Auto) 61.7 H, [place] % (Auto) 5.1, Eos % (Auto) 3.9, Baso % (Auto) 0.6, Absolute Neuts (auto) 3.1, Nucleated RBC % 0, PT 13.8, INR 1.1, APTT 25.0, Sodium 142, Potassium 4.0, Chloride 110 H, Carbon Dioxide 26.0, Anion Gap 6, BUN 27 H, Creatinine 1.62 H, Est GFR (MDRD) Af Amer 39 L, Est GFR (MDRD) Non-Af 32 L, BUN/Creatinine Ratio 16.7, Glucose 223 H, Calcium 9.7 Rhythm: EKG: Atrial fibrillation. Posterior lateral ST elevation myocardial infarction. ECHO: Stress Test: Cardiac Cath: PCI: CT Surgery: Holter monitor: EPS: PPM: CXR: Chest CT Scan:
--- NOTE | 2023-02-20 08:50 | EKG12_ITS ---
Test Reason : SOB/CP Blood Pressure : / mmHG Vent. Rate : 096 BPM Atrial Rate : 096 BPM P-R Int : 104 ms QRS Dur : 082 ms QT Int : 364 ms P-R-T Axes : 017 093 057 degrees QTc Int : 459 ms Critical Test Result: STEMI Sinus rhythm with short MD with Premature atrial complexes Rightward axis Inferior-posterior infarct , possibly acute Lateral injury pattern Abnormal ECG Confirmed by KESHAWN INFANTE, BELLE ([id number]), web content editor BERTHA CONNER ([id number]) on 03/02/2023 12:46:06 PM Referred By: Estelle Villegas Confirmed By:BELLE LIAO MD
--- NOTE | 2023-02-20 08:50 | ECHOCS_ITS ---
Reason For Study: CAD/ASHD Procedure This was a 2D Doppler, Color Flow transthoracic echocardiogram. Contrast injection was performed. Exam performed portable in ICU/CCU. Left Ventricle Normal size and thickness. The left ventricular ejection fraction is 60 %. Stage 3 diastolic dysfunction. Basal to mid posterior and lateral severe hypokinesis. Right Ventricle Normal right ventricle. Atria The left atrium is mildly enlarged. Normal right atrium. Mitral Valve Mild mitral annular calcification. Moderate (2+) posteriorly directed mitral valve insufficiency. Tricuspid Valve Mild to moderate (1-2+) tricuspid valve insufficiency. Right ventricular systolic pressure estimated to be 65 mmHg. Aortic Valve Trisinus/trileaflet aortic valve. Pulmonic Valve The pulmonic valve is not well visualized. Great Vessels Normal sized aortic root. Pericardium/Pleural No pericardial effusion. Medication Diluted definity 2ml given slow IV push to enhance endocardial definition. MMode/2D Measurements & Calculations LVIDd: 3.8 cm IVSd: 0.85 cm Ao root diam: 3.0 cm LVIDs: 3.0 cm LVPWd: 1.0 cm RVDd: 2.8 cm FS: 20.7 % LAV(MOD-bp): 34.0 ml LVAd ap4: 17.4 cm2 SV(MOD-sp4): 13.7 ml LAV(MOD-bp) Indexed: 18.5 ml/m2 LVLd ap4: 7.4 cm LAV(MOD-sp2): 25.5 ml EDV(MOD-sp4): 34.7 ml LAV(MOD-sp4): 41.0 ml EDV(sp4-el): 34.9 ml LVAs ap4: 12.2 cm2 LVLs ap4: 6.1 cm ESV(MOD-sp4): 21.1 ml ESV(sp4-el): 20.8 ml EF(MOD-sp4): 39.3 % EF(sp4-el): 40.5 % SV(sp4-el): 14.1 ml LA A4 area: 17.1 cm2 LA dimension(2D): 3.5 cm RA A4 area: 12.3 cm2 TAPSE: 2.1 cm Time Measurements MV dec time: 0.14 sec Doppler Measurements & Calculations MV E max ezequiel: 93.6 cm/sec Lat Peak E' Ezequiel: 4.7 cm/sec Med Peak E' Ezequiel: 5.5 cm/sec MV A max ezequiel: 38.8 cm/sec E/E' lat: 19.9 E/E' med: 17.1 MV E/A: 2.4 MV dec slope: 663.7 cm/sec2 Ao V2 max: 98.4 cm/sec LV V1 max: 81.4 cm/sec Ao max P.9 mmHg LV V1 max P.7 mmHg Ao V2 mean: 74.5 cm/sec LV V1 mean P.5 mmHg Ao mean P.4 mmHg LV V1 mean: 57.9 cm/sec Ao V2 VTI: 20.2 cm LV V1 VTI: 17.2 cm AV (velocity ratio): 0.86 PA V2 max: 42.4 cm/sec TR max ezequiel: 351.5 cm/sec TR max P.4 mmHg ECHO/Echo Complete W/ Contrast Interpretation Summary The left ventricular ejection fraction is 60 %. Basal to mid posterior and lateral severe hypokinesis. Stage 3 diastolic dysfunction. The left atrium is mildly enlarged. Moderate (2+) posteriorly directed mitral valve insufficiency. Mild to moderate (1-2+) tricuspid valve insufficiency. Right ventricular systolic pressure estimated to be 65 mmHg. Ordering Physician: Estelle Villegas Referring Physician: Eddie Hoffman Performed By: Ana Paula Johnson, GERALD, RVT
--- NOTE | 2023-02-20 08:53 | CL.I_ITS ---
Patient Name: KIRK CARVER Study Date: 02/20/2023 Performing: Estelle Villegas MD Ht: 59 inches 149.86 cm : 1935 Wt: 198.64 lbs 90.1 kg Age: 87 Gender: female BSA: 1.84 PROCEDURE(S) PERFORMED DC01-(24675)LHC/COR/LV IC16-(56266/C9606)AMI, LIGIA OR PTCA, ARTERY/GRAFT, SINGLE VESSEL IC17-(88517)CORONARY MECHANICAL THROMBECTOMY (ANGIOJET,PENUMBRA) CLINICAL PROFILE AND CO-MORBIDITIES Indications: ACS <= 24 hrs Heart Failure: None CAD Presentations: STEMI. Symptom onset Date/Time: 02/20/2023 Time Not Available CONCLUSIONS 100% Prox LCX LVEF 65% 2+ MR 3.5x15 mm RECOMMENDATIONS ASA Indefinitley Plavix for at least 12 months DESCRIPTION OF PROCEDURE The patient arrived to the procedure lab. The risks and benefits of the procedure as well as a full description of our services here and lack of surgical backup were fully explained to the patient and/or their significant other prior to the catheterization. The Timeout was completed, verifying the correct patient and procedure. The patient's procedural site was prepped and draped in the usual fashion. Local anesthetic was given subcutaneously to right radial region with Lidocaine 2%. Using a modified Seldinger technique, arterial access was obtained via the right radial artery, a 6Fr sheath was inserted.. Right Coronary Artery selective angiography was then performed in multiple views using a 5 Fr. 4.0 [place] catheter. Left Ventriculography was performed in MORALEZ projection using a 5 Fr. Pigtail catheter. LV to AO pullback pressures were then recorded Runthrough Guide wire was advanced to the Circumflex. Angiogram performed post penumbra dilatation. 3.5x15 Resolute Drug Eluting stent was inserted. Drug Eluting stent was advanced across the lesion in the circumflex, proximal. Angiogram performed post stent deployment. 3.5x12 NC Eup[place] Balloon catheter was inserted. Balloon catheter was inserted post stent. Angiogram performed post balloon dilatation. The arterial sheath was pulled and a TR Band was applied for hemostasis. 10cc of air CORONARY ANGIOGRAPHY DOMINANCE: Right Dominant LEFT HEART ASSESSMENT Left Ventricular Ejection Fraction: by LV Gram 65 % Elevated Left Ventricular End Diastolic Pressure LEFT MAIN: Angiographically normal LEFT ANTERIOR DESCENDING ARTERY: LAD: Luminal Irregularities 20% Proximal lesion in LAD CIRCUMFLEX ARTERY: CIRCUMFLEX: Thrombus 100% Proximal lesion in Circumflex RIGHT CORONARY ARTERY: Angiographically normal INTERVENTION INFORMATION LESION SITE: Circumflex (Proximal) Lesion Complexity: High/C, chronic total occlusion: No, thrombus present: Yes, lesion length: 13 mm Pre Stenosis: 100 % Pre intervention LARA flow: 0 PROCEDURE: Drug Eluting Stent with post dilatation Post Stenosis: 0 % Post intervention LARA flow: 3 Lesion Devices: Cordis 6 Fr XB3.0 100cm Guide Catheter Terumo .014 180cm Runthrough Extra Floppy straight Medtronic Resolute [place] RX LIGIA 3.5x15 Penumbra Indigo Penumbra CAT Rx 140cm large lumen Penumbra Penumbra engine canister Medtronic NC EUPHORA RX 3.5x12 BALLOON COMPLICATIONS No Complications PROCEDURE MEDICATIONS Oxygen: 2 L/min via nasal cannula Oxygen: 4 L/min via nasal cannula Heparin 2000 unit(s) IV 02/20/2023 07:59:10 Heparin 3000 unit(s) IV 02/20/2023 08:35:42 Nitro 50 mcg IC 02/20/2023 08:09:53 Verapamil 2.5mg, Ntg 200mcgs, given IA 02/20/2023 07:53:29 SUMMARY OF HEMODYNAMIC DATA Time AIR REST ECG 07:50:12 AO 93/52 (73) SA 07:55:03 LV 88/32, 40 08:20:42 LV 90/30, 41 08:21:26 LV 90/31, 40 08:21:34 LV 70/38, 46 08:23:11 LVp 79/27, 36 08:23:58 AOp 0/0 (47) 08:24:05 AO 88/61 (74) 08:24:14 AO 94/69 (80) 08:24:25 Signed By Estelle Villegas MD On 02/22/2023 12:53:54 Signed By Estelle Villegas MD On 02/22/2023 09:55:08 Signed By Estelle Villegas MD On 02/20/2023 08:52:27 Estelle Villegas MD
[2023-02-20] MEDS: 0.9% Normal Saline (1000mL) 1,000 ML 100 ML IV (10:12)
[2023-02-20 10:27] LABS: BNP,B-Type NATRIURETIC PEPTIDE 328.7 pg/mL (0-100)
--- NOTE | 2023-02-20 10:55 | CASEMGMT ---
NELLIE SON Face to Face with patient for initial transition planning/care coordination assessment. RN CM introduced self and role at [facility] [place]. Patient lying in bed, alert and oriented, family at bedside. Patient willing to participate in assessment and is able to answer all questions appropriately. Care providers, pharmacy, and demographics verified. Patient wishes to discharge home, will monitor progress with therapy. Patient states she has no further needs or concerns at this time. CM to follow for discharge planning needs that may arise. PCP: [place] Specialists: CLAUDINE Hernandez Preferred Pharmacy: [facility] Insurance: [employer] [facility] Prescription Benefit: yes Living Will/HPOA: yes, son Eddie Dalton HPOA LNOK: son, daughter Living Arrangements: Patient lives with in a single story home with 2 steps and railing to enter the home. Patient is independent at home and helps care for . Family is caring for patient's at this time. Transportation: self, 5 children DME/HHC: Patient has built in shower chair, raised toilet, cane, walker, and pulse ox at home. No previous HHC or SNF. Will monitor progress with therapy Disposition Plan: Patient to discharge home with family support and follow-up plans in place. Will monitor progress with therapy. Caitlyn EASLEY, RN, CM
[2023-02-20] MEDS: Furosemide 40 MG/4 ML Vial IV ×2 (11:50→18:39)
[2023-02-20] MEDS: Famotidine 20 MG Tablet PO (18:38)
[2023-02-20] MEDS: Clopidogrel Bisulfate 300 MG Tablet PO (18:39)
[2023-02-20] MEDS: 0.9% Saline Lock 10 ML Syringe IV (18:39)
[2023-02-20] MEDS: oxyCODONE 5 MG Tablet PO (21:15)
[2023-02-20] MEDS: Metoprolol Tartrate 25 MG Tablet 12.5 MG PO (21:16)
[2023-02-20] MEDS: Atorvastatin Calcium 40 MG Tablet PO (21:16)
[2023-02-21] VITALS (44 sets, daily range): BP systolic 87–130; BP diastolic 47–96; PULSE 73–145; RESP 0–32; TEMP 36.4–36.7; O2SAT 74–98; BMI 39.9
[2023-02-21] MEDS: MELATONIN 3 MG TABLET PO (01:22)
--- NOTE | 2023-02-21 04:53 | EKG12_ITS ---
Test Reason : am ekg Blood Pressure : / mmHG Vent. Rate : 087 BPM Atrial Rate : 087 BPM P-R Int : 108 ms QRS Dur : 076 ms QT Int : 384 ms P-R-T Axes : 014 097 064 degrees QTc Int : 462 ms Sinus rhythm with short NC Rightward axis Low voltage QRS Posterior infarct , age undetermined with posterior ischemia Abnormal ECG Confirmed by KESHAWN INFANTE, BELLE ([id number]), editorial assistant DERRICK NOGUEIRA ([id number]) on 03/11/2023 2:32:08 PM Referred By: Estelle Villegas Confirmed By:BELLE LIAO MD
[2023-02-21 05:35] LABS: Hematocrit 47.2 % (37-47); Hemoglobin 14.8 g/dL (12.0-15.0); Mean Corp Hgb Conc 31.4 g/dL (32-36); Mean Corpuscular Hgb 27.1 pg (27.0-32.0); Mean Corpuscular Volume 86.3 fL (81-99); Mean Platelet Vol. 9.6 fl (6.2-12.0); Platelet Count 249 K/mm3 (150-450); RBC Distribution Width CV 14.5 % (11.6-14.6); RBC Distribution Width SD 45.7 fl (35.1-43.9); Red Blood Count 5.47 M/mm3 (4.2-5.4); White Blood Count 14.3 K/mm3 (4.4-11.0)
[2023-02-21 06:16] LABS: ALB/GLOB Ratio 0.9 RATIO (0.9-2.4); AST(SGOT) 1109 U/L (15-37); Alanine Aminotransfer ALT/SGPT 180 U/L (13-56); Albumin, Serum 3.4 g/dL (3.2-5.0); Alkaline Phosphatase 61 U/L (45-117); Anion Gap 5 (5-15); BUN 27 mg/dL (7-18); BUN/Creat Ratio 16.7 RATIO (10-20); Calcium,Total 9.4 mg/dL (8.5-10.1); Chloride 109 mmol/L (98-107); Cholesterol 121 mg/dL (200); Creatinine, Serum 1.62 mg/dL (0.55-1.02); EST Glomerular Filtration Rate 32 mL/min (>60); Est Glom Filt Rate - Afr Amer 39 mL/min (>60); Estimated Creatinine Clearance 35.38 ml/min; Globulin 3.7 g/dL (2.2-4.2); Glucose 130 mg/dL (74-106); High Density Lipoprotein 39 mg/dL; Magnesium 2.2 mg/dL (1.6-2.6); Potassium 4.4 mmol/L (3.5-5.1); Protein, Total 7.1 g/dL (6.4-8.2); Sodium Level 142 mmol/L (136-145); Thyroid Stim Hormone (TSH) 0.57 uIU/mL (0.358-3.74); Triglycerides 155 mg/dL; Very Low Density Lipoprotein 31 mg/dL (5-40)
--- NOTE | 2023-02-21 07:04 | PN.HOSP_ITS ---
Reason for Visit Reason for Visit: Diagnoses Hyperlipidemia, unspecified (02/20/23) ST elevation (STEMI) myocardial infarction of unspecified site (02/20/23) Atherosclerotic heart disease of [place] coronary artery without angina pectoris (02/20/23) Unspecified atrial fibrillation (02/20/23) Disorder of kidney and ureter, unspecified (02/20/23) Subjective Subjective Patient reports she usually has a bowel movement every morning and has not yet today so her abdomen is feeling more firm than usual but denies any pain, no chest pain, no shortness of breath though did desaturate when she stood up to walk around Objective Data Objective Data Vital Signs: Vital Signs Temp Pulse Resp BP Pulse Ox O2 Del Method O2 Flow Rate 97.9 F 86 18 125/70 H 96 Nasal Cannula 2 02/21/23 00:18 02/21/23 06:00 02/21/23 06:00 02/21/23 06:00 02/21/23 06:00 02/21/23 06:00 02/21/23 06:00 Oxygen Flow Rate (L/min) 2 Oxygen Delivery Method Nasal Cannula Weight: 89.9 kg Body Mass Index (BMI) 39.9 Intake & Output: Intake and Output for Last 24 Hours 02/19/23 02/20/23 02/21/23 23:59 23:59 23:59 Intake Total 250 / 490 1240 / 1240 Output Total 1400 / 2200 1250 / 1250 Balance -1150 / -1710 -10 / -10 Lab / Micro Data 02/21/23 05:20 02/21/23 05:20 Labs: Laboratory Results - last 24 hr 02/20/23 07:07: WBC 11.0, RBC 5.65 H, Hgb 14.9, Hct 49.4 H, MCV 87.4, MCH 26.4 L , MCHC 30.2 L, RDW Std Deviation 46.0 H, RDW Coeff of [place] 14.4, Plt Count 240, MPV 9.6, Immature Gran % (Auto) 0.300, Neut % (Auto) 28.4 L, Lymph % (Auto) 61.7 H, [place] % (Auto) 5.1, Eos % (Auto) 3.9, Baso % (Auto) 0.6, Absolute Neuts (auto) 3.1, Absolute Lymphs (auto) 6.78 H, Nucleated RBC % 0, PT 13.8, INR 1.1, APTT 25.0, Sodium 142, Potassium 4.0, Chloride 110 H, Carbon Dioxide 26.0, Anion Gap 6, BUN 27 H, Creatinine 1.62 H, Estim Creat Clear Calc 35.46, Est GFR (MDRD) Af Amer 39 L, Est GFR (MDRD) Non-Af 32 L, BUN/Creatinine Ratio 16.7, Glucose 223 H, Calcium 9.7, Troponin I High Sens 973 H*, B-Natriuretic Peptide 328.7 H 02/21/23 05:20: WBC 14.3 H, RBC 5.47 H, Hgb 14.8, Hct 47.2 H, MCV 86.3, MCH 27.1, MCHC 31.4 L, RDW Std Deviation 45.7 H, RDW Coeff of [place] 14.5, Plt Count 249, MPV 9.6, Sodium 142, Potassium 4.4, Chloride 109 H, Carbon Dioxide 28.0, Anion Gap 5, BUN 27 H, Creatinine 1.62 H, Estim Creat Clear Calc 35.38, Est GFR (MDRD) Af Amer 39 L, Est GFR (MDRD) Non-Af 32 L, BUN/Creatinine Ratio 16.7, Glucose 130 H, Calcium 9.4, Magnesium 2.2, Total Bilirubin 0.70, AST 1109 H, ALT 180 H, Alkaline Phosphatase 61, Total Protein 7.1, Albumin 3.4, Globulin 3.7, Albumin/Globulin Ratio 0.9, Triglycerides 155, Cholesterol 121, LDL Cholesterol 51, VLDL Cholesterol 31, HDL Cholesterol 39 L, TSH 0.57 Radiography Diagnostic Testing: Radiology Impression Echocardiogram 02/20/23 08:50 Interpretation Summary The left ventricular ejection fraction is 60 %. Basal to mid posterior and lateral severe hypokinesis. Stage 3 diastolic dysfunction. The left atrium is mildly enlarged. Moderate (2+) posteriorly directed mitral valve insufficiency. Mild to moderate (1-2+) tricuspid valve insufficiency. Right ventricular systolic pressure estimated to be 65 mmHg. Ordering Physician: Estelle Villegas Referring Physician: Eddie Hoffman Performed By: Ana Paula Johnson RDCS, RVT Rhythm Strip Rhythm Strip: A-fib Physical Exam Narrative General: Alert, oriented, no apparent distress HEENT: Atraumatic, normocephalic Eyes: Anicteric, normal conjunctiva, extraocular movements grossly intact Neck: Supple Respiratory: Somewhat diminished at the bases, normal respiratory effort Cardiovascular: Regular rate and rhythm GI: Soft, nontender, nondistended Extremities: No significant pitting edema Musculoskeletal: Moving all extremities Neuro: No overt focal neurological deficits Skin: No rashes appreciated Psych: Cooperative Assessment & Plan Assessment/Plan (1) STEMI (ST elevation myocardial infarction): PLAN: Plan #STEMI-occluded proximal left circumflex s/post aspiration thrombectomy and PCI with LIGIA -Patient with EKG consistent with lateral STEMI and ED -STEMI alert called -Patient given aspirin, Brilinta, metoprolol, verapamil -Cardiology consulted, Sanitation Supervisor activated and patient to go to Sanitation Supervisor at this time -Troponin and BMP pending, will follow levels -Echocardiogram ordered -Lipid panel -Statin -Further management pending catheter findings -02/21: Emergent heart cath demonstrated complete occlusion of proximal left circumflex and patient had aspiration thrombectomy and PCI with LIGIA. Patient on aspirin and Plavix and beta-maicol, echocardiogram demonstrated stage III diastolic dysfunction and basal to mid posterior and lateral severe hypokinesis #Likely chronic heart failure with preserved ejection fraction -02/21: BNP 328 but clinically did not appear profoundly overloaded, patient started on IV Lasix twice daily per cardiology, monitor I's and O's, monitor d aily weights, optimize GDMT, desaturated to 70s when patient got up to ambulate, continue diuresis #Denise stemi afib -Had some A-fib prior to heart cath, if this improves in. Cath. May not need systemic anticoagulation, monitor on telemetry #Transaminitis -No baseline but AST 1100 and ALT 180, will trend, if not improving or uptrending will need to hold statin however given STEMI hesitant to do so unless necessary, will get liver ultrasound. Could certainly be hepatic congestion if patient is fluid overloaded #Chronic back and knee pain -Supportive care #History of elevated creatinine -Only values we have are in 2019 and appeared consistent with CKD with creatinine of 1.36 and 1.38 respectively -BMP pending -02/21: Creatinine 1.62 yesterday and 1.62 again today, suspect CKD cannot rule out component of THIERRY, continue to trend #DVT ppx: SCDs ordered Theresa Marcial MD Time spent in the patient's overall evaluation,decision-making process, review of diagnostic data, adjustment of management, discussion with other providers, nursing nursing and ancillary staff involved in patient's care documentation, 36 minutes Charges/Coding Visit Charges Inpatient E&M: 92323 Subs Hosp L2
--- NOTE | 2023-02-21 07:08 | US_ITS ---
STUDY: ABDOMINAL ULTRASOUND - RIGHT UPPER QUADRANT REASON FOR VISIT: Female, 87 years old transaminitis TECHNIQUE: Ultrasound evaluation of the right upper quadrant was performed with real-time and static hyatt-scale imaging. TECHNICAL QUALITY: Adequate. COMPARISON: None. FINDINGS: Liver: The liver measures 12.6 cm. There is normal echogenicity of the liver. The bile ducts are within normal limits. There is hepatic color flow. The direction of portal flow is hepatopetal. There is no demonstrated mass lesion. Gallbladder: Normal distended gallbladder. The gallbladder wall measures 2 mm. There is a negative sonographic Pace''s sign. There is no pericholecystic fluid. There are no gallstones. Common Bile Duct (C.B.D.): The common bile duct measures 2 mm. Pancreas: Normal size of the head, body and tail of the pancreas. There is normal echogenicity of the pancreas. There is no demonstrated pancreatic mass or cyst. Right Kidney: Normal size of the right kidney. The right kidney measures 9.5 cm. Normal renal cortex. The right cortex measures 1.0 cm. There is no demonstrated renal mass or cyst. There is no right hydronephrosis. US/Liver IMPRESSION: Normal right upper quadrant ultrasound examination. Electronically Signed: Marcial Bridges MD at 18:21 EDT ,
[2023-02-21] MEDS: Aspirin E.C. 81 MG Tablet PO (08:50)
[2023-02-21] MEDS: Famotidine 20 MG Tablet PO (08:51)
[2023-02-21] MEDS: Metoprolol Tartrate 25 MG Tablet 12.5 MG PO (08:51)
[2023-02-21] MEDS: 0.9% Saline Lock 10 ML Syringe IV ×4 (08:52→20:27)
[2023-02-21] MEDS: Clopidogrel Bisulfate 75 MG Tablet PO (08:52)
[2023-02-21 09:49] LABS: ACT Activated Clotting Time 185 sec (74-137)
[2023-02-21 09:50] LABS: ACT Activated Clotting Time 203 sec (74-137)
--- NOTE | 2023-02-21 09:50 | NURSING ---
0950 pt sitting in chair, monitor shows burst VT, She states she feels weird, a little SOB. AOx3, speaking clearly. remains on 2lnc 0954 another burst VT, ends w/pt cough 0955 again burst VT, self limiting 1000 sustained VT, pt remains awake and talkative, c/o feeling weird, increased to 4lnc to bed per ICU staff HR 145, BP 130/96, R 28, SpO2 95 Dr. Villegas notified above via phone, orders recd 1005 Dr. Marcial notified above, request to come to unit HR 142 BP 120/90 R 36 SpO2 [address] Marcial via text, pt remains in VT, asymptomatic HR 146 BP 110/79 R [address] Marcial presnt in pt room 1014 Dr. Villegas updated via phone, orders recd 1015 HR 146 BP 113/80 R 27 SpO2 98 1020 HR146 BP 107/80 R [address] Villegas also present in pt room, orders corrected 1030 lidocaine 100mg IVP given HR 145 BP 108/91 R 30 SpO2 96 1035 HR 129 BP 119/83 R 32 SpO2 97 lidocaine drip at 1mg/hr initiated 1036 convert to SR 1040 HR 86 BP 126/87 R 34 SpO2 126/87 1045 family updated
--- NOTE | 2023-02-21 10:00 | EKG12_ITS ---
Test Reason : Blood Pressure : / mmHG Vent. Rate : 146 BPM Atrial Rate : 000 BPM P-R Int : 000 ms QRS Dur : 164 ms QT Int : 356 ms P-R-T Axes : 000 -80 085 degrees QTc Int : 554 ms Critical Test Result: High HR , Arrhythmia Wide QRS tachycardia Vtach Left axis deviation Non-specific intra-ventricular conduction block Minimal voltage criteria for LVH, may be normal variant ( [place] product ) Inferior infarct , age undetermined Anterolateral infarct , age undetermined Abnormal ECG Confirmed by KESHAWN INFANTE, BELLE ([id number]), publications editor DERRICK NOGUEIRA ([id number]) on 03/11/2023 2:32:46 PM Referred By: Estelle Villegas Confirmed By:BELLE LIAO MD
[2023-02-21] MEDS: Magnesium Sulfate 1 GM, 0.9% Normal Saline (Pres. free 8 ML in Syringe 0 EACH IV (10:22)
[2023-02-21] MEDS: Lidocaine 2% 100 MG/5 ML Syringe IV BOLUS (10:30)
[2023-02-21] MEDS: Lidocaine/D5W 2,000 MG/250 ML IV.SOLN 7.5 MG CONT INF (10:36)
--- NOTE | 2023-02-21 10:39 | PCM.HOSP.N ---
Hospitalist Note Received message the patient was nonsustained wide-complex tachycardia but was otherwise vitally stable and awake and alert, came to bedside and she was indeed awake and alert and said she was no longer lightheaded and had no shortness of breath or chest pain, blood pressure was stable. Cardiology contacted and he was also at bedside, patient given 100 mg of lidocaine and converted and plan to start lidocaine drip at 1. Afterwards patient denied any chest pain or shortness of breath and was following commands and answering questions though slow to do so
--- NOTE | 2023-02-21 10:43 | PCM.PN.CARD ---
Subjective Subjective Sustained ventricular tachycardia this morning. Denies chest pain. No shortness of breath. Patient drowsy but responding to verbal commands. Objective Data Vital Signs: Vital Signs Temp Pulse Resp BP Pulse Ox O2 Del Method O2 Flow Rate 97.9 F 95 18 117/60 96 Nasal Cannula 2 02/21/23 00:18 02/21/23 08:51 02/21/23 06:00 02/21/23 08:51 02/21/23 08:21 02/21/23 08:21 02/21/23 08:21 Oxygen Flow Rate (L/min) 2 Oxygen Delivery Method Nasal Cannula Weight: 198 lb 3.129 oz Body Mass Index (BMI) 39.9 Intake & Output: Intake and Output for Last 24 Hours 02/19/23 02/20/23 02/21/23 23:59 23:59 23:59 Intake Total 250 / 490 1240 / 1240 Output Total 1400 / 2200 1250 / 1250 Balance -1150 / -1710 -10 / -10 Lab / Micro Data 02/21/23 05:20 02/21/23 05:20 Labs: Laboratory Results - last 24 hr 02/20/23 08:00: Activated Clotting Time 185 H 02/20/23 08:40: Activated Clotting Time 203 H 02/21/23 05:20: WBC 14.3 H, RBC 5.47 H, Hgb 14.8, Hct 47.2 H, MCV 86.3, MCH 27.1, MCHC 31.4 L, RDW Std Deviation 45.7 H, RDW Coeff of [place] 14.5, Plt Count 249, MPV 9.6, Sodium 142, Potassium 4.4, Chloride 109 H, Carbon Dioxide 28.0, Anion Gap 5, BUN 27 H, Creatinine 1.62 H, Estim Creat Clear Calc 35.38, Est GFR (MDRD) Af Amer 39 L, Est GFR (MDRD) Non-Af 32 L, BUN/Creatinine Ratio 16.7, Glucose 130 H, Calcium 9.4, Magnesium 2.2, Total Bilirubin 0.70, AST 1109 H, ALT 180 H, Alkaline Phosphatase 61, Total Protein 7.1, Albumin 3.4, Globulin 3.7, Albumin/Globulin Ratio 0.9, Triglycerides 155, Cholesterol 121, LDL Cholesterol 51, VLDL Cholesterol 31, HDL Cholesterol 39 L, TSH 0.57 Rhythm Strip Rhythm Strip: A-fib Cardiology Labs/Tests 02/21/23 05:20: WBC 14.3 H, RBC 5.47 H, Hgb 14.8, Hct 47.2 H, MCV 86.3, MCH 27.1, MCHC 31.4 L, Plt Count 249, MPV 9.6, Sodium 142, Potassium 4.4, Chloride 109 H, Carbon Dioxide 28.0, Anion Gap 5, BUN 27 H, Creatinine 1.62 H, Est GFR (MDRD) Af Amer 39 L, Est GFR (MDRD) Non-Af 32 L, BUN/Creatinine Ratio 16.7, Glucose 130 H, Calcium 9.4, Magnesium 2.2, Total Bilirubin 0.70, Triglycerides 155, Cholesterol 121, LDL Cholesterol 51, VLDL Cholesterol 31, HDL Cholesterol 39 L Rhythm: EKG: ECHO: Stress Test: Cardiac Cath: PCI: CT Surgery: Holter monitor: EPS: PPM: CXR: Chest CT Scan: Radiography Diagnostic Testing: Radiology Impression Echocardiogram 02/20/23 08:50 Interpretation Summary The left ventricular ejection fraction is 60 %. Basal to mid posterior and lateral severe hypokinesis. Stage 3 diastolic dysfunction. The left atrium is mildly enlarged. Moderate (2+) posteriorly directed mitral valve insufficiency. Mild to moderate (1-2+) tricuspid valve insufficiency. Right ventricular systolic pressure estimated to be 65 mmHg. Ordering Physician: Estelle Villegas Referring Physician: Eddie Hoffman Performed By: Ana Paula Johnson, RDNIGEL, RVT Physical Exam Narrative No apparent distress. Heart sounds 1 and 2 noted. No murmurs. No rubs. Chest decreased breath sounds at bases. Trace ankle edema. Assessment & Plan Assessment/Plan (1) Sustained ventricular tachycardia: PLAN: Converted back to sinus rhythm with lidocaine bolus. Continue lidocaine infusion. Continue beta-blockers. Increase dose upwards as tolerated. (2) STEMI (ST elevation myocardial infarction): PLAN: ECG with resolution of ST segments. Recent posterior lateral myocardial infarction. Status post drug-eluting stent to the proximal left circumflex. (3) Coronary artery disease: PLAN: See #2 above. (4) Mitral regurgitation: PLAN: Moderate mitral regurgitation. We will continue to monitor. Continue diuretics. (5) Renal insufficiency: PLAN: Monitor. (6) Atrial fibrillation: PLAN: Transient in the setting of acute myocardial infarction. Resolved. (7) Dyslipidemia: PLAN: Atorvastatin. (8) Pulmonary hypertension: PLAN: Monitor. Continue diuretics.
[2023-02-21] MEDS: Furosemide 40 MG/4 ML Vial IV ×2 (11:52→20:27)
[2023-02-21] MEDS: Enoxaparin 40 MG/0.4 ML Syringe SC (11:52)
[2023-02-21] MEDS: Metoprolol Tartrate 25 MG Tablet PO ×2 (13:59→21:47)
--- NOTE | 2023-02-21 17:14 | CT_ITS ---
STUDY: CT BRAIN WITHOUT CONTRAST REASON FOR EXAM: Female, 87 years old. confusion RADIATION DOSAGE (If Supplied By Facility): CTDIvol = ( 44.99 ) mGy, DLP = ( 782.05 ) mGycm TECHNIQUE: Transaxial CT imaging of the brain was performed without administration of intravenous contrast material. Individualized dose optimization techniques were used for this CT. COMPARISON: No relevant priors. FINDINGS: Normal soft tissue structures. Normal calvarium. There is mild cerebral atrophy with widening of the extra-axial spaces and ventricular dilatation. There are areas of decreased attenuation within the white matter tracts of the supratentorial brain, consistent with microvascular disease changes. Normal basal ganglia and thalami. Normal brainstem. Normal cerebellum. There is no intracranial hemorrhage. There are no findings of an acute ischemic infarction. Normal visualized paranasal sinuses. CT/Brain/Head without Contrast IMPRESSION: Chronic involutional changes of the brain. Electronically Signed: Marcial Bridges MD at 18:32 EDT ,
--- NOTE | 2023-02-21 17:40 | EKG12_ITS ---
Test Reason : Blood Pressure : / mmHG Vent. Rate : 089 BPM Atrial Rate : 089 BPM P-R Int : 094 ms QRS Dur : 078 ms QT Int : 360 ms P-R-T Axes : 033 107 032 degrees QTc Int : 438 ms Critical Test Result: STEMI Sinus rhythm with marked sinus arrhythmia with short [place] Inferior-posterior infarct , possibly acute ACUTE [place] / STEMI Abnormal ECG Confirmed by EKSHAWN INFANTE, BELLE ([id number]), editor in chief newspaper DERRICK NOGUEIRA ([id number]) on 03/11/2023 2:31:00 PM Referred By: Estelle Villegas Confirmed By:BELLE LIAO MD
[2023-02-21 17:53] LABS: Allen Test Positive; Base Excess 1 mmol/L (-2 to +2); Bicarbonate 25.4 mmol/L (22-26); Blood Gas Specimen Type ART; Mode Not entered; O2 Delivery Device Cannula; PO2 62 mmHG (75-100); SITE L Radial; SO2 92 % (95-99); Total Carbon Dioxide 27 mmol/L; pCO2 38.2 mmHg (35-45); pH 7.43 (7.35-7.45)
--- NOTE | 2023-02-21 18:10 | RAD_ITS ---
STUDY: X-RAY CHEST REASON FOR EXAM: Female, 87 years old. sob TECHNIQUE: Single AP portable view of the chest. COMPARISON: None. FINDINGS: Alveolar opacity in the lower right lung consistent with right lower lobe pneumonia. There is no demonstrated pleural abnormality. Normal size heart. Normal mediastinum and michel. Normal visualized pulmonary arteries. Normal visualized aortic arch and descending thoracic aorta. Normal visualized thoracic spine. Normal visualized ribs, clavicles, and shoulders. There is no demonstrated abnormality of the visualized soft tissue structures of the upper abdomen. RAD/Chest 1 View (Portable) IMPRESSION: Right lower lobe pneumonia. Electronically Signed: Marcial Bridges MD at 18:28 EDT ,
[2023-02-21] MEDS: Piperacil/Tazobactam 3.375 GM in 0.9% Normal Saline (50mL MB+) 50 ML IV (21:47)
[2023-02-21] MEDS: Atorvastatin Calcium 40 MG Tablet PO (21:47)
[2023-02-21] MEDS: Albuterol 2.5 MG/3 ML VIAL.NEB. INHALATION (22:07)
[2023-02-21 22:41] LABS: Miscellaneous Lab Procedure 1.8
[2023-02-22] VITALS (27 sets, daily range): BP systolic 82–124; BP diastolic 55–91; PULSE 73–97; RESP 22–37; TEMP 36.3–36.7; O2SAT 90–98; BMI 39.4
[2023-02-22] MEDS: Metoprolol Tartrate 25 MG Tablet PO ×3 (05:42→21:06)
[2023-02-22] MEDS: Piperacil/Tazobactam 3.375 GM in 0.9% Normal Saline (50mL MB+) 50 ML IV ×3 (05:46→21:06)
[2023-02-22 06:06] LABS: Absolute Neutrophil Count 7.8 X10^3/uL (2.0-7.7); Basophil# 0.06 X10^3/uL; Basophil% 0.5 % (0-1); Eosinophil# 0.01 X10^3/uL; Eosinophils% 0.1 % (0-5); Hematocrit 43.2 % (37-47); Hemoglobin 13.4 g/dL (12.0-15.0); Lymphocyte % 24.4 % (19-41); Mean Corpuscular Hgb 26.4 pg (27.0-32.0); Mean Corpuscular Volume 85.2 fL (81-99); Mean Platelet Vol. 9.9 fl (6.2-12.0); Monocyte# 1.29 X10^3/uL; Monocyte% 10.5 % (0-10); NRBC Flagged by Analyzer 0 % (0-5); Neutrophil # 7.83 X10^3/uL (2.7-7.7); Neutrophil % 63.5 % (47-70); Platelet Count 199 K/mm3 (150-450); RBC Distribution Width CV 14.6 % (11.6-14.6); RBC Distribution Width SD 44.6 fl (35.1-43.9); Red Blood Count 5.07 M/mm3 (4.2-5.4); White Blood Count 12.3 K/mm3 (4.4-11.0)
[2023-02-22 06:44] LABS: ALB/GLOB Ratio 0.8 RATIO (0.9-2.4); AST(SGOT) 490 U/L (15-37); Alanine Aminotransfer ALT/SGPT 120 U/L (13-56); Alkaline Phosphatase 53 U/L (45-117); Anion Gap 5 (5-15); BUN 32 mg/dL (7-18); BUN/Creat Ratio 21.9 RATIO (10-20); Calcium,Total 9.2 mg/dL (8.5-10.1); Chloride 106 mmol/L (98-107); Creatinine, Serum 1.46 mg/dL (0.55-1.02); EST Glomerular Filtration Rate 36 mL/min (>60); Est Glom Filt Rate - Afr Amer 44 mL/min (>60); Estimated Creatinine Clearance 39.25 ml/min; Globulin 3.9 g/dL (2.2-4.2); Glucose 142 mg/dL (74-106); Potassium 3.5 mmol/L (3.5-5.1); Protein, Total 6.9 g/dL (6.4-8.2); Sodium Level 140 mmol/L (136-145)
--- NOTE | 2023-02-22 08:44 | PN.CARD_ITS ---
Subjective Subjective Sitting up in the chair. Denies any complaints. Objective Data Vital Signs: Vital Signs Temp Pulse Resp BP Pulse Ox O2 Del Method O2 Flow Rate 97.8 F 74 24 H 97/68 98 Nasal Cannula 2 02/22/23 04:00 02/22/23 07:00 02/22/23 07:00 02/22/23 07:00 02/22/23 07:00 02/22/23 07:00 02/22/23 07:00 Oxygen Flow Rate (L/min) 2 Oxygen Delivery Method Nasal Cannula Weight: 198 lb 3.129 oz Body Mass Index (BMI) 39.9 Intake & Output: Intake and Output for Last 24 Hours 02/20/23 02/21/23 02/22/23 23:59 23:59 23:59 Intake Total 250 / 490 1645.5 / 1645.5 290 / 290 Output Total 1400 / 2200 1850 / 1850 650 / 650 Balance -1150 / -1710 -204.5 / -204.5 -360 / -360 Lab / Micro Data Attestation: I reviewed the patient's lab results. 02/22/23 05:45 02/22/23 05:45 Labs: Laboratory Results - last 24 hr 02/20/23 08:00: Activated Clotting Time 185 H 02/20/23 08:40: Activated Clotting Time 203 H 02/21/23 17:30: Miscellaneous Test 1.8 02/21/23 17:35: Lidocaine Cancelled 02/22/23 05:45: WBC 12.3 H, RBC 5.07, Hgb 13.4, Hct 43.2, MCV 85.2, MCH 26.4 L, MCHC 31.0 L, RDW Std Deviation 44.6 H, RDW Coeff of Maliha 14.6, Plt Count 199, MPV 9.9, Immature Gran % (Auto) 1.000 H, Neut % (Auto) 63.5, Lymph % (Auto) 24.4, [place] % (Auto) 10.5 H, Eos % (Auto) 0.1, Baso % (Auto) 0.5, Absolute Neuts (auto) 7.8 H, Absolute Lymphs (auto) 3.00, Nucleated RBC % 0, Sodium 140, Potassium 3.5, Chloride 106, Carbon Dioxide 29.0, Anion Gap 5, BUN 32 H, Creatinine 1.46 H , Estim Creat Clear Calc 39.25, Est GFR (MDRD) Af Amer 44 L, Est GFR (MDRD) Non- Af 36 L, BUN/Creatinine Ratio 21.9 H, Glucose 142 H, Calcium 9.2, Total Bilirubin 1.30 H, AST 490 H, ALT 120 H, Alkaline Phosphatase 53, Total Protein 6.9, Albumin 3.0 L, Globulin 3.9, Albumin/Globulin Ratio 0.8 L ABG Data ABG results: ABG 02/21/23 17:50 Specimen Type ART Sample Site L Radial pH 7.43 Bicarbonate Actual 25.4 Total CO2 27 Base Excess 1 O2 Saturation 92 L ABG pCO2 38.2 ABG pO2 62 L Julián Test Positive O2 Delivery Device Cannula Vent Mode Not entered Rhythm Strip Rhythm Strip: A-fib Cardiology Labs/Tests 02/21/23 17:50: pH 7.43, Bicarbonate Actual 25.4, Base Excess 1, O2 Saturation 92 L, ABG pCO2 38.2, ABG pO2 62 L, Julián Test Positive 02/22/23 05:45: WBC 12.3 H, RBC 5.07, Hgb 13.4, Hct 43.2, MCV 85.2, MCH 26.4 L, MCHC 31.0 L, Plt Count 199, MPV 9.9, Immature Gran % (Auto) 1.000 H, Neut % (Auto) 63.5, Lymph % (Auto) 24.4, [place] % (Auto) 10.5 H, Eos % (Auto) 0.1, Baso % (Auto) 0.5, Absolute Neuts (auto) 7.8 H, Nucleated RBC % 0, Sodium 140, Potassium 3.5, Chloride 106, Carbon Dioxide 29.0, Anion Gap 5, BUN 32 H, Creatinine 1.46 H, Est GFR (MDRD) Af Amer 44 L, Est GFR (MDRD) Non-Af 36 L, BUN/Creatinine Ratio 21.9 H, Glucose 142 H, Calcium 9.2, Total Bilirubin 1.30 H Rhythm: EKG: ECHO: Stress Test: Cardiac Cath: PCI: CT Surgery: Holter monitor: EPS: PPM: CXR: Chest CT Scan: Radiography Diagnostic Testing: Radiology Impression Liver Ultrasound 02/21/23 07:08 IMPRESSION: Normal right upper quadrant ultrasound examination. Electronically Signed: Marcial Bridges MD at 18:21 EDT , Brain CT 02/21/23 17:14 IMPRESSION: Chronic involutional changes of the brain. Electronically Signed: Marcial Bridges MD at 18:32 EDT , Chest X-Ray 02/21/23 18:10 IMPRESSION: Right lower lobe pneumonia. Electronically Signed: Marcial Bridges MD at 18:28 EDT Reading Location ID and State: [id number] / [employer] Tel , Service support , Assessment & Plan Assessment/Plan (1) Sustained ventricular tachycardia: PLAN: Resolved. Discontinue lidocaine infusion. Monitor. Continue beta- blockers. If any further runs, then will start on amiodarone. (2) STEMI (ST elevation myocardial infarction): PLAN: Status post drug-eluting stent to the proximal left circumflex. Continue aspirin. Continue clopidogrel. Overall normal left ventricular systolic function. No LUIS MANUEL inhibitors for now as the goal is to maximize beta-maicol therapy and her blood pressure is borderline. (3) Coronary artery disease: PLAN: Beta-blockers. (4) Mitral regurgitation: PLAN: Moderate mitral regurgitation. We will continue to monitor. Continue diuretics. (5) Renal insufficiency: PLAN: Creatinine improved. (6) Atrial fibrillation: PLAN: Transient in the setting of acute myocardial infarction. Resolved. (7) Dyslipidemia: PLAN: Atorvastatin. (8) Pulmonary hypertension: PLAN: Monitor. Continue diuretics.
[2023-02-22] MEDS: Aspirin E.C. 81 MG Tablet PO (09:15)
[2023-02-22] MEDS: Famotidine 20 MG Tablet PO (09:15)
[2023-02-22] MEDS: Clopidogrel Bisulfate 75 MG Tablet PO (09:15)
[2023-02-22] MEDS: Enoxaparin 40 MG/0.4 ML Syringe SC (09:15)
[2023-02-22] MEDS: 0.9% Saline Lock 10 ML Syringe IV (09:18)
[2023-02-22] MEDS: Senna/Docusate Sodium 1 Tablet 2 TABLET PO (09:20)
[2023-02-22] MEDS: Furosemide 40 MG/4 ML Vial IV ×2 (09:23→18:00)
--- NOTE | 2023-02-22 10:00 | EKG12_ITS ---
Test Reason : AM EKG Blood Pressure : / mmHG Vent. Rate : 083 BPM Atrial Rate : 083 BPM P-R Int : 096 ms QRS Dur : 086 ms QT Int : 386 ms P-R-T Axes : 000 101 041 degrees QTc Int : 453 ms Critical Test Result: STEMI Sinus rhythm with short VA Inferior-posterior infarct , possibly acute ACUTE [place] / STEMI Abnormal ECG Confirmed by KESHAWN INFANTE, BELLE ([id number]), film editor DERRICK NOGUEIRA ([id number]) on 03/11/2023 2:30:39 PM Referred By: Estelle Villegas Confirmed By:BELLE LIAO MD
--- NOTE | 2023-02-22 13:09 | CRPHASE1_ITS ---
Patient Communication Patient Information PHII Cardiac Rehab Discussed with Patient:: Yes Guide to Cardiac Rehab Given to Patient:: Yes Cardiac Rehab Facility Choice List Given to Patient:: Yes Communication to Cardiac Rehab Choice Program [facility] CR PHII:: Communication Given to CR and Refer to [facility] Choice Program Other:: Communication Given to CR Manager Support:: Estelle Villegas Refer Phase II Cardiac Rehab:: Yes Sessions:: 36 sessions - 3 days/wk, 12 weeks Post Discharge Choice Letter Given to Patient:: Yes Guide to Cardiac Rehab Given by ICU Staff Prior to Discharge:: Yes PHII Cardiac Rehab Referral:: [facility] Phase I Charge:: Level I - Education Cardiac Rehabilitation Info Program Information Cardiac Rehabilitation Program Information: Cardiac Rehab The cardiac rehab team at [facility] consists of highly skilled exercise physiologists, nurses, respiratory therapists and physicians working together with you. Our purpose is to help you have a full recovery and achieve the goals you set for yourself. Over the years many of our patients have returned to activities they assumed they would never do again! We can help restore your confidence and motivation to make lifestyle changes that can have a significant impact on your health and quality of life! We can help answer questions and concerns you may have about exercise, lifestyle, medications, diet, stress and anxiety which are common following a hospitalization. WE monitor ECG and vital signs during exercise and discuss your progress with you and report to your physician(s). Cardiac Rehab is proven to help reduce readmissions, improve functional capacity and lower recurrence of problems with your heart. Our Cardiac Rehab program is Certified by the [place] [employer] Pulmonary [employer] (AACVPR) and Accredited by the [place] [employer] through our [facility]. You can contact us at . We invite you to call us with your questions or to get started in our program. If you have other questions or concerns be sure to ask your physician/provider during your follow-up visit. WE look forward to seeing you!
--- NOTE | 2023-02-22 13:11 | CRPH1.INSTRU ---
General Education Discussed with Patient CAD and cardiac anatomy and function:: Needs reinforcement Explanation of diagnoses and procedures:: Needs reinforcement Sign/Symptoms of [place]:: Needs reinforcement Antiplatelet therapy: Needs reinforcement Proper use of NTG-SL: Needs reinforcement Emergency procedures and activation of EMS: Needs reinforcement Compliance of all prescribed medications: Needs reinforcement
[2023-02-22] MEDS: 0.9% Normal Saline (250mL Bag) 250 ML 15 ML IV (14:28)
--- NOTE | 2023-02-22 15:29 | PN_ITS ---
Subjective Subjective Patient seen and examined. She had no complaints and felt well. She denied any fever, chills, cough, chest pain, palpitations, dizziness, nausea, vomiting or any other symptoms. Review of systems is otherwise negative. She has remained hemodynamically stable. Objective Data Objective Data Vital Signs: Vital Signs Temp Pulse Resp BP Pulse Ox O2 Del Method O2 Flow Rate 97.6 F L 91 33 H 113/69 90 Nasal Cannula 2 02/22/23 12:00 02/22/23 15:00 02/22/23 15:00 02/22/23 15:00 02/22/23 15:00 02/22/23 15:00 02/22/23 15:00 Oxygen Flow Rate (L/min) 2 Oxygen Delivery Method Nasal Cannula Weight: 195 lb 8 oz Body Mass Index (BMI) 39.4 Intake & Output: Intake and Output for Last 24 Hours 02/20/23 02/21/23 02/22/23 23:59 23:59 23:59 Intake Total 250 / 490 1645.5 / 1645.5 998.96 / 998.96 Output Total 1400 / 2200 1850 / 1850 850 / 850 Balance -1150 / -1710 -204.5 / -204.5 148.96 / 148.96 Lab / Micro Data 02/22/23 05:45 02/22/23 05:45 Labs: Laboratory Results - last 24 hr 02/21/23 17:30: Miscellaneous Test 1.8 02/21/23 17:35: Lidocaine Cancelled 02/22/23 05:45: WBC 12.3 H, RBC 5.07, Hgb 13.4, Hct 43.2, MCV 85.2, MCH 26.4 L, MCHC 31.0 L, RDW Std Deviation 44.6 H, RDW Coeff of [place]iha 14.6, Plt Count 199, MPV 9.9, Immature Gran % (Auto) 1.000 H, Neut % (Auto) 63.5, Lymph % (Auto) 24.4, [place] % (Auto) 10.5 H, Eos % (Auto) 0.1, Baso % (Auto) 0.5, Absolute Neuts (auto) 7.8 H, Absolute Lymphs (auto) 3.00, Nucleated RBC % 0, Sodium 140, Potassium 3.5, Chloride 106, Carbon Dioxide 29.0, Anion Gap 5, BUN 32 H, Creatinine 1.46 H , Estim Creat Clear Calc 39.25, Est GFR (MDRD) Af Amer 44 L, Est GFR (MDRD) Non- Af 36 L, BUN/Creatinine Ratio 21.9 H, Glucose 142 H, Calcium 9.2, Total Bilirubin 1.30 H, AST 490 H, ALT 120 H, Alkaline Phosphatase 53, Total Protein 6.9, Albumin 3.0 L, Globulin 3.9, Albumin/Globulin Ratio 0.8 L ABG Data ABG results: ABG 02/21/23 17:50 Specimen Type ART Sample Site L Radial pH 7.43 Bicarbonate Actual 25.4 Total CO2 27 Base Excess 1 O2 Saturation 92 L ABG pCO2 38.2 ABG pO2 62 L Julián Test Positive O2 Delivery Device Cannula Vent Mode Not entered Radiography Diagnostic Testing: Radiology Impression Liver Ultrasound 02/21/23 07:08 IMPRESSION: Normal right upper quadrant ultrasound examination. Electronically Signed: Marcial Bridges MD at 18:21 EDT Reading Location ID and State: [facility] / [employer] , Service support , Brain CT 02/21/23 17:14 IMPRESSION: Chronic involutional changes of the brain. Electronically Signed: Marcial Bridges MD at 18:32 EDT Reading Location ID and State: [facility] / [employer] , Service support , Chest X-Ray 02/21/23 18:10 IMPRESSION: Right lower lobe pneumonia. Electronically Signed: Marcial Bridges MD at 18:28 EDT Reading Location ID and State: [facility] / [employer] , Service support , Rhythm Strip Rhythm Strip: A-fib Physical Exam Const alert, oriented x3 and no apparent distress General Appearance: cooperative HEENT normocephalic, moist oral mucous membranes and oropharynx normal Eyes PERRL and EOMs intact bilaterally Neck no lymphadenopathy and supple Lymph Lymphatic: no lymphadenopathy noted and no lymphedema noted Resp normal respiratory effort, normal air movement and clear to auscultation bilaterally Cardio regular rate, regular rhythm, S1 normal heart sound, S2 normal heart sound and no murmurs GI normal to inspection, nondistended, normoactive bowel sounds, soft to palpation, non-tender and non-distended Extremity normal capillary refill, no clubbing, cyanosis or edema and no calf tenderness Skin General Skin Exam: no breakdown Neuro CN's II-XII intact bilaterally, no focal motor deficits, no sensory deficits noted and deep tendon reflexes 2+ bilaterally Psych Appearance: appropriate Assessment & Plan Assessment/Plan (1) STEMI (ST elevation myocardial infarction): (2) Stented coronary artery: PLAN: Plan #STEMI * s/p cardiac cath which occlusion of proximal lefft circumflex artry. She had thrombectomy and PCI with LIGIA. * 2D echo showed stage III diastolic dusfynction and basal to mid posterior and lateral severe hypokinesis * on aspirin and plavix, on metoprolol * on high intensity statin * cardiology on board. * #HFpEF * on IV lasix * monitor intake and output. Fluid restriction to 1500cc daily. * #Afib * develop after Stemi * HR has improved. Did have some nonsustained vtach yesterday, and was started o n lidocaine drip per cardiology. Now off lidocaine drip. * cardiology on board. * #transaminitis * AST was elevated at 1109, but has trended down to 490 today. ALT hs also trended downwards, though total bilirubin is 1.3. * #Probable CKD * baseline Cr from 2019 showed Cr of 1.36. * Cr now ~ 1.6. May be a progression of CR upwards. Cr today is now 1.46. * Will monitor * DVT prophylaxis: SCDs * Charges/Coding Visit Charges Inpatient E&M: 98511 Subs Hosp L2
[2023-02-22] MEDS: Atorvastatin Calcium 40 MG Tablet PO (21:07)
[2023-02-23] VITALS (29 sets, daily range): BP systolic 86–150; BP diastolic 58–105; PULSE 76–93; RESP 15–32; TEMP 35.9–36.6; O2SAT 90–98; BMI 40.0
[2023-02-23] MEDS: Albuterol 2.5 MG/3 ML VIAL.NEB. INHALATION (04:51)
[2023-02-23 05:12] LABS: Absolute Lymphocyte Count 2.43 X10^3/uL (0.83-4.51); Absolute Neutrophil Count 8.5 X10^3/uL (2.0-7.7); Basophil# 0.05 X10^3/uL; Basophil% 0.4 % (0-1); Eosinophil# 0.07 X10^3/uL; Eosinophils% 0.6 % (0-5); Hematocrit 42.6 % (37-47); Hemoglobin 13.3 g/dL (12.0-15.0); Lymphocyte # 2.43 X10^3/ul (0.83-4.51); Lymphocyte % 20.3 % (19-41); Mean Corp Hgb Conc 31.2 g/dL (32-36); Mean Corpuscular Hgb 26.5 pg (27.0-32.0); Mean Platelet Vol. 10.2 fl (6.2-12.0); Monocyte# 0.86 X10^3/uL; Monocyte% 7.2 % (0-10); NRBC Flagged by Analyzer 0 % (0-5); Neutrophil # 8.45 X10^3/uL (2.7-7.7); Neutrophil % 70.4 % (47-70); Platelet Count 212 K/mm3 (150-450); RBC Distribution Width CV 14.4 % (11.6-14.6); RBC Distribution Width SD 44.1 fl (35.1-43.9); Red Blood Count 5.01 M/mm3 (4.2-5.4)
[2023-02-23 05:32] LABS: ALB/GLOB Ratio 0.7 RATIO (0.9-2.4); AST(SGOT) 246 U/L (15-37); Alanine Aminotransfer ALT/SGPT 87 U/L (13-56); Albumin, Serum 2.8 g/dL (3.2-5.0); Alkaline Phosphatase 53 U/L (45-117); Anion Gap 7 (5-15); BUN 36 mg/dL (7-18); BUN/Creat Ratio 22.9 RATIO (10-20); Calcium,Total 9.2 mg/dL (8.5-10.1); Chloride 105 mmol/L (98-107); Creatinine, Serum 1.57 mg/dL (0.55-1.02); EST Glomerular Filtration Rate 33 mL/min (>60); Est Glom Filt Rate - Afr Amer 40 mL/min (>60); Estimated Creatinine Clearance 36.59 ml/min; Globulin 4.2 g/dL (2.2-4.2); Glucose 142 mg/dL (74-106); Potassium 3.5 mmol/L (3.5-5.1); Sodium Level 142 mmol/L (136-145)
[2023-02-23] MEDS: 0.9% Saline Lock 10 ML Syringe IV (05:37)
[2023-02-23] MEDS: Piperacil/Tazobactam 3.375 GM in 0.9% Normal Saline (50mL MB+) 50 ML IV ×2 (05:37→12:57)
[2023-02-23] MEDS: Metoprolol Tartrate 25 MG Tablet PO ×3 (05:38→21:02)
[2023-02-23] MEDS: Aspirin E.C. 81 MG Tablet PO (07:46)
[2023-02-23] MEDS: Enoxaparin 40 MG/0.4 ML Syringe SC (07:46)
[2023-02-23] MEDS: Clopidogrel Bisulfate 75 MG Tablet PO (07:47)
[2023-02-23] MEDS: Famotidine 20 MG Tablet PO (07:47)
[2023-02-23] MEDS: Furosemide 40 MG Tablet PO (10:40)
--- NOTE | 2023-02-23 13:09 | PCM.PN.CARD ---
Subjective Subjective Denies any complaints. Some shortness of breath overnight but now asymptomatic. No chest pain. No palpitations. No ventricular runs overnight. Objective Data Vital Signs: Vital Signs Temp Pulse Resp BP Pulse Ox O2 Del Method O2 Flow Rate 96.6 F L 80 25 H 106/74 98 Nasal Cannula 2 02/23/23 12:00 02/23/23 13:00 02/23/23 13:00 02/23/23 13:00 02/23/23 13:00 02/23/23 13:00 02/23/23 13:00 Oxygen Flow Rate (L/min) 2 Oxygen Delivery Method Nasal Cannula Weight: 198 lb 10.184 oz Body Mass Index (BMI) 40.0 Intake & Output: Intake and Output for Last 24 Hours 02/21/23 02/22/23 02/23/23 23:59 23:59 23:59 Intake Total 1645.5 / 1645.5 1148.21 / 1148.21 307.5 / 307.5 Output Total 1850 / 1850 1100 / 1600 950 / 950 Balance -204.5 / -204.5 48.21 / -451.79 -642.5 / -642.5 Lab / Micro Data 02/23/23 05:05 02/23/23 05:05 Labs: Laboratory Results - last 24 hr 02/23/23 05:05: WBC 12.0 H, RBC 5.01, Hgb 13.3, Hct 42.6, MCV 85.0, MCH 26.5 L, MCHC 31.2 L, RDW Std Deviation 44.1 H, RDW Coeff of [place] 14.4, Plt Count 212, MPV 10.2, Immature Gran % (Auto) 1.100 H, Neut % (Auto) 70.4 H, Lymph % (Auto) 20.3, [place] % (Auto) 7.2, Eos % (Auto) 0.6, Baso % (Auto) 0.4, Absolute Neuts (auto) 8.5 H, Absolute Lymphs (auto) 2.43, Nucleated RBC % 0, Sodium 142, Potassium 3.5, Chloride 105, Carbon Dioxide 30.0, Anion Gap 7, BUN 36 H, Creatinine 1.57 H, Estim Creat Clear Calc 36.59, Est GFR (MDRD) Af Amer 40 L, Est GFR (MDRD) Non-Af 33 L, BUN/Creatinine Ratio 22.9 H, Glucose 142 H, Calcium 9.2, Total Bilirubin 1.20 H, AST 246 H, ALT 87 H, Alkaline Phosphatase 53, Total Protein 7.0, Albumin 2.8 L, Globulin 4.2, Albumin/Globulin Ratio 0.7 L Rhythm Strip Rhythm Strip: A-fib Cardiology Labs/Tests 02/23/23 05:05: WBC 12.0 H, RBC 5.01, Hgb 13.3, Hct 42.6, MCV 85.0, MCH 26.5 L, MCHC 31.2 L, Plt Count 212, MPV 10.2, Immature Gran % (Auto) 1.100 H, Neut % (Auto) 70.4 H, Lymph % (Auto) 20.3, [place] % (Auto) 7.2, Eos % (Auto) 0.6, Baso % (Auto) 0.4, Absolute Neuts (auto) 8.5 H, Nucleated RBC % 0, Sodium 142, Potassium 3.5, Chloride 105, Carbon Dioxide 30.0, Anion Gap 7, BUN 36 H, Creatinine 1.57 H, Est GFR (MDRD) Af Amer 40 L, Est GFR (MDRD) Non-Af 33 L, BUN/Creatinine Ratio 22.9 H, Glucose 142 H, Calcium 9.2, Total Bilirubin 1.20 H Rhythm: EKG: ECHO: Stress Test: Cardiac Cath: PCI: CT Surgery: Holter monitor: EPS: PPM: CXR: Chest CT Scan: Physical Exam Narrative No apparent distress. Heart sounds 1 and 2 noted. No murmurs. No rubs. Crepitations right base on auscultation. Trace bilateral ankle edema. Assessment & Plan Assessment/Plan (1) Sustained ventricular tachycardia: PLAN: Resolved. No ventricular ectopy. On beta-blockers. Continue to monitor. (2) STEMI (ST elevation myocardial infarction): PLAN: Status post drug-eluting stent to the proximal left circumflex. Continue aspirin. Continue clopidogrel. Overall normal left ventricular systolic function. No LUIS MANUEL inhibitors for now as the goal is to maximize beta-maicol therapy and her blood pressure is borderline. (3) Coronary artery disease: PLAN: Beta-blockers. (4) Mitral regurgitation: PLAN: Moderate mitral regurgitation. We will continue to monitor. Continue diuretics. Switch to p.o. (5) Renal insufficiency: PLAN: Continue to monitor. (6) Atrial fibrillation: PLAN: Transient in the setting of acute myocardial infarction. Resolved. (7) Dyslipidemia: PLAN: Atorvastatin. (8) Pulmonary hypertension: PLAN: Monitor. Continue diuretics. (9) Pneumonia: PLAN: On antibiotics. Continue to manage as per internal medicine.
--- NOTE | 2023-02-23 14:05 | CASEMGMT ---
Addendum entered by Harika Solorzano 02/23/23 15:43: Pt made aware [facility] able to accept her w/SOC slated for Wednesday. Addendum entered by Harika Solorzano 02/23/23 15:43: Pt was provided w/list of C agencies that was prepared by Adeline special events planner. Addendum entered by Harika Solorzano 02/23/23 14:29: Call received from [facility]. They are able to accept pt w/SOC slated for Wednesday. This was entered into DC plan. Original Note: NELLIE SON NOTE: Therapy just finished working w/pt. Pt ambulated in halls w/SBA, but did become SOB w/exertion. Pt sitting up in chair in room w/O2 in place and no SOB noted at this time. Discussed discharge planning. Pt states she wishes to return home. Discussed [facility] and she is interested in this, but would like NELLIE SON to call her son, Dr Hoffman, to discuss. Call placed to Dr Hoffman, who agrees w/[facility]. Offered to provide list of [facility] agencies. He states would like [facility] as 1st choice and [facility] as 2nd choice, if [facility] unable to accept. [facility] order placed for SN and PT/OT. Pt had stated to NELLIE SON she does not feel that she needs an aide for bathing/dressing. Call to [facility] and VM left re: referral. Awaiting response. Lisa EASLEY RN, CM
--- NOTE | 2023-02-23 14:25 | PN_ITS ---
Subjective Subjective Patient seen and examined. She had no active complaints today. Review of systems is otherwise negative. BP has been running low. Objective Data Objective Data Vital Signs: Vital Signs Temp Pulse Resp BP Pulse Ox O2 Del Method O2 Flow Rate 96.6 F L 90 20 H 86/65 L 96 Nasal Cannula 2 02/23/23 12:00 02/23/23 14:00 02/23/23 14:00 02/23/23 14:00 02/23/23 14:00 02/23/23 14:00 02/23/23 14:00 Oxygen Flow Rate (L/min) 2 Oxygen Delivery Method Nasal Cannula Weight: 198 lb 10.184 oz Body Mass Index (BMI) 40.0 Intake & Output: Intake and Output for Last 24 Hours 02/21/23 02/22/23 02/23/23 23:59 23:59 23:59 Intake Total 1645.5 / 1645.5 1148.21 / 1148.21 307.5 / 307.5 Output Total 1850 / 1850 1100 / 1600 950 / 950 Balance -204.5 / -204.5 48.21 / -451.79 -642.5 / -642.5 Lab / Micro Data 02/23/23 05:05 02/23/23 05:05 Labs: Laboratory Results - last 24 hr 02/23/23 05:05: WBC 12.0 H, RBC 5.01, Hgb 13.3, Hct 42.6, MCV 85.0, MCH 26.5 L, MCHC 31.2 L, RDW Std Deviation 44.1 H, RDW Coeff of [place]iha 14.4, Plt Count 212, MPV 10.2, Immature Gran % (Auto) 1.100 H, Neut % (Auto) 70.4 H, Lymph % (Auto) 20.3, [place] % (Auto) 7.2, Eos % (Auto) 0.6, Baso % (Auto) 0.4, Absolute Neuts (auto) 8.5 H, Absolute Lymphs (auto) 2.43, Nucleated RBC % 0, Sodium 142, Potassium 3.5, Chloride 105, Carbon Dioxide 30.0, Anion Gap 7, BUN 36 H, Creatinine 1.57 H , Estim Creat Clear Calc 36.59, Est GFR (MDRD) Af Amer 40 L, Est GFR (MDRD) Non- Af 33 L, BUN/Creatinine Ratio 22.9 H, Glucose 142 H, Calcium 9.2, Total Bilirubin 1.20 H, AST 246 H, ALT 87 H, Alkaline Phosphatase 53, Total Protein 7.0, Albumin 2.8 L, Globulin 4.2, Albumin/Globulin Ratio 0.7 L Rhythm Strip Rhythm Strip: A-fib Physical Exam Const alert, oriented x3 and no apparent distress General Appearance: cooperative HEENT normocephalic, moist oral mucous membranes and oropharynx normal Eyes PERRL and EOMs intact bilaterally Neck no lymphadenopathy and supple Lymph Lymphatic: no lymphadenopathy noted and no lymphedema noted Resp normal respiratory effort, normal air movement and clear to auscultation bilaterally Cardio regular rate, regular rhythm, S1 normal heart sound, S2 normal heart sound and no murmurs GI normal to inspection, nondistended, normoactive bowel sounds, soft to palpation, non-tender and non-distended Extremity normal capillary refill, no clubbing, cyanosis or edema and no calf tenderness Skin General Skin Exam: no breakdown Neuro CN's II-XII intact bilaterally, no focal motor deficits, no sensory deficits noted and deep tendon reflexes 2+ bilaterally Psych Appearance: appropriate Assessment & Plan Assessment/Plan (1) STEMI (ST elevation myocardial infarction): (2) Stented coronary artery: PLAN: Plan #STEMI * s/p cardiac cath which occlusion of proximal lefft circumflex artry. She had thrombectomy and PCI with LIGIA. * 2D echo showed stage III diastolic dusfynction and basal to mid posterior and lateral severe hypokinesis * on aspirin and plavix, on metoprolol * on high intensity statin * cardiology on board. * #?pneumonia * patient was started on IV zosyn due to pneumonia * will dc IV zosyn as no evidence of infection. * wbc is 12, but has no productive cough. * #HFpEF * on IV lasix * monitor intake and output. Fluid restriction to 1500cc daily. * cardiology on board * #Afib * develop after Stemi * HR has improved. Did have some nonsustained vtach yesterday, and was started on lidocaine drip per cardiology. Now off lidocaine drip. * cardiology on board. * #transaminitis * AST has trended down to 246 from 490 yesterday. ALT is also down to 87. * will monitor. Etiology is not clear. * Liver USG was normal. * #Probable CKD * baseline Cr from 2019 showed Cr of 1.36. * Cr is 1.57 today * will monitor * DVT prophylaxis: SCDs * Charges/Coding Visit Charges Inpatient E&M: 67323 Subs Hosp L2
--- NOTE | 2023-02-23 14:32 | CASEMGMT ---
Addendum entered by Adeline Petit 02/23/23 14:36: Discharge Planning A list of HH ?providers including quality and resource use data and consistent with the patient's preferred geographic region, medical needs, and insurance network was created in [employer].? This list was provided to the RN CM. Adeline Petit, Discharge Planning Asst. Original Note: Discharge Planning A list of SNF?providers including quality and resource use data and consistent with the patient's preferred geographic region, medical needs, and insurance network was created in [employer].? This list was provided to the RN CM. Adeline Petit, Discharge Planning Asst.
[2023-02-23] MEDS: Atorvastatin Calcium 40 MG Tablet PO (21:02)
[2023-02-24] VITALS (23 sets, daily range): BP systolic 80–116; BP diastolic 55–75; PULSE 80–96; RESP 18–36; TEMP 36.1–36.6; O2SAT 90–99; BMI 40.1
[2023-02-24] MEDS: Metoprolol Tartrate 25 MG Tablet PO ×2 (06:15→14:18)
[2023-02-24] MEDS: 0.9% Saline Lock 10 ML Syringe IV (06:15)
[2023-02-24] MEDS: Famotidine 20 MG Tablet PO (08:29)
[2023-02-24] MEDS: Furosemide 40 MG Tablet PO (08:29)
[2023-02-24] MEDS: Clopidogrel Bisulfate 75 MG Tablet PO (08:29)
[2023-02-24] MEDS: Aspirin E.C. 81 MG Tablet PO (08:29)
[2023-02-24] MEDS: Enoxaparin 40 MG/0.4 ML Syringe SC (08:29)
[2023-02-24 09:52] LABS: ALB/GLOB Ratio 0.6 RATIO (0.9-2.4); AST(SGOT) 118 U/L (15-37); Alanine Aminotransfer ALT/SGPT 63 U/L (13-56); Albumin, Serum 2.5 g/dL (3.2-5.0); Alkaline Phosphatase 52 U/L (45-117); BUN 42 mg/dL (7-18); BUN/Creat Ratio 29.2 RATIO (10-20); Calcium,Total 9.4 mg/dL (8.5-10.1); Creatinine, Serum 1.44 mg/dL (0.55-1.02); EST Glomerular Filtration Rate 37 mL/min (>60); Est Glom Filt Rate - Afr Amer 45 mL/min (>60); Estimated Creatinine Clearance 39.93 ml/min; Globulin 4.1 g/dL (2.2-4.2); Glucose 141 mg/dL (74-106); Protein, Total 6.6 g/dL (6.4-8.2)
[2023-02-24 09:53] LABS: Anion Gap 4 (5-15); Chloride 106 mmol/L (98-107); Potassium 3.3 mmol/L (3.5-5.1); Sodium Level 143 mmol/L (136-145)
--- NOTE | 2023-02-24 10:26 | PN_ITS ---
Subjective Subjective Patient seen and examined. Her daughter, son and son in law were by her bedside. She had has epistaxis overnight, but says it has resolved. She has been weaned down to room air. She denies any fever, chills, cough, chest pain, palpitations, dizziness, nausea, vomiting or any other symptoms. Review of systems is oth erwise negative. Objective Data Objective Data Vital Signs: Vital Signs Temp Pulse Resp BP Pulse Ox O2 Del Method O2 Flow Rate 97.2 F L 87 18 97/63 92 Room Air 2 02/24/23 10:00 02/24/23 10:00 02/24/23 10:00 02/24/23 10:00 02/24/23 10:00 02/24/23 10:00 02/24/23 08:00 Oxygen Flow Rate (L/min) 2 Oxygen Delivery Method Room Air Weight: 198 lb 13.711 oz Body Mass Index (BMI) 40.1 Intake & Output: Intake and Output for Last 24 Hours 02/22/23 02/23/23 02/24/23 23:59 23:59 23:59 Intake Total 1148.21 / 1148.21 351.88 / 451.88 100 / 100 Output Total 1100 / 1600 1150 / 1150 Balance 48.21 / -451.79 -798.12 / -698.12 100 / 100 Lab / Micro Data 02/23/23 05:05 02/24/23 03:45 Labs: Laboratory Results - last 24 hr 02/24/23 03:45: Sodium 143, Potassium 3.3 L, Chloride 106, Carbon Dioxide 33.0 H , Anion Gap 4 L, BUN 42 H, Creatinine 1.44 H, Estim Creat Clear Calc 39.93, Est GFR (MDRD) Af Amer 45 L, Est GFR (MDRD) Non-Af 37 L, BUN/Creatinine Ratio 29.2 H , Glucose 141 H, Calcium 9.4, Total Bilirubin 0.70, AST 118 H, ALT 63 H, Alkaline Phosphatase 52, Total Protein 6.6, Albumin 2.5 L, Globulin 4.1, Albumin/Globulin Ratio 0.6 L Rhythm Strip Rhythm Strip: A-fib Physical Exam Const alert, oriented x3 and no apparent distress General Appearance: cooperative HEENT normocephalic, head/scalp atraumatic, moist oral mucous membranes and oropharynx normal Eyes PERRL and EOMs intact bilaterally Neck no lymphadenopathy and supple Lymph Lymphatic: no lymphadenopathy noted and no lymphedema noted Resp normal respiratory effort, normal air movement and clear to auscultation bilaterally Cardio regular rate, regular rhythm, S1 normal heart sound, S2 normal heart sound and no murmurs GI normal to inspection, nondistended, normoactive bowel sounds, soft to palpation, non-tender and non-distended Extremity normal capillary refill, no clubbing, cyanosis or edema and no calf tenderness Skin General Skin Exam: no breakdown Neuro CN's II-XII intact bilaterally, no focal motor deficits, no sensory deficits noted and deep tendon reflexes 2+ bilaterally Motor Exam: strength 5/5 throughout and general weakness Psych thought process normal Appearance: appropriate Assessment & Plan Assessment/Plan (1) STEMI (ST elevation myocardial infarction): (2) Stented coronary artery: PLAN: Plan #STEMI * s/p cardiac cath which occlusion of proximal lefft circumflex artry. She had thrombectomy and PCI with LIGIA. * 2D echo showed stage III diastolic dusfynction and basal to mid posterior and lateral severe hypokinesis * on aspirin and plavix, on metoprolol * on high intensity statin * cardiology on board. * #?pneumonia * patient was started on IV zosyn due to pneumonia * zosyn discontinued due to no clear evidence of pneumonia * #Epistaxis * Had some mild epistasis overnight. Has not had again this morning. Likely du e to dryness of her nostrils home oxygen. She is now on room air. * Will give nasal spray to help moisturize the nostrils. * now off oxygen * #HFpEF * on IV lasix * monitor intake and output. Fluid restriction to 1500cc daily. * cardiology on board * #Afib * develop after Stemi * HR has improved. Did have some nonsustained vtach yesterday, and was started on lidocaine drip per cardiology. Now off lidocaine drip. * cardiology on board. * #Hypokalemia:potassium is 3.3 today. Will replace and trend. #transaminitis * resolving and trending downwards. * will monitor. Etiology is not clear. * Liver USG was normal. * #Probable CKD * baseline Cr from 2019 showed Cr of 1.36. * Cr is 1.44 today * will monitor * DVT prophylaxis: SCDs * Charges/Coding Visit Charges Inpatient E&M: 55506 Subs Hosp L2
--- NOTE | 2023-02-24 11:47 | CASEMGMT ---
NELLIE SON NOTE: NELLIE SON to room to discuss discharge planning and inquired what her wishes are, as a message was received re: an interest in [facility]. Pt sitting up in chair. Pt states she is aware her son talked W/[facility] re: her going there, but she states she wishes to return home and wants HHC, and her son is aware of this. She states if she changes her mind, to ask for SW or CM. She voices understanding. Lisa EASLEY RN CM
--- NOTE | 2023-02-24 11:48 | CASEMGMT ---
Discharge Planning Call was received from [facility] requesting referral to be sent. This tech writer spoke with RN ADELAIDA who confirmed with patient that goal is to return home w/HH. [facility] updated. Adeline Petit, Discharge Planning Asst.
[2023-02-24 14:25] LABS: Basophil% 0.5 % (0-1); Eosinophils% 2.2 % (0-5); Hematocrit 40.9 % (37-47); Lymphocyte % 34.3 % (19-41); Mean Corp Hgb Conc 31.8 g/dL (32-36); Mean Corpuscular Hgb 27.1 pg (27.0-32.0); Mean Corpuscular Volume 85.4 fL (81-99); Mean Platelet Vol. 10.3 fl (6.2-12.0); Monocyte% 6.8 % (0-10); Neutrophil % 55.5 % (47-70); Platelet Count 241 K/mm3 (150-450); RBC Distribution Width CV 13.8 % (11.6-14.6); RBC Distribution Width SD 43.4 fl (35.1-43.9); Red Blood Count 4.79 M/mm3 (4.2-5.4)
[2023-02-24 14:30] LABS: Absolute Lymphocyte Count 3.41 X10^3/uL (0.83-4.51); Absolute Neutrophil Count 5.5 X10^3/uL (2.0-7.7); Basophil# 0.05 X10^3/uL; Eosinophil# 0.22 X10^3/uL; Lymphocyte # 3.41 X10^3/ul (0.83-4.51); Monocyte# 0.68 X10^3/uL; Neutrophil # 5.52 X10^3/uL (2.7-7.7)
[2023-02-24 14:31] LABS: NRBC Flagged by Analyzer 0 % (0-5)
--- NOTE | 2023-02-24 15:19 | PN.CARD_ITS ---
Subjective Subjective Denies any complaints. No chest pain. No shortness of breath. Ambulating. Objective Data Vital Signs: Vital Signs Temp Pulse Resp BP Pulse Ox O2 Del Method O2 Flow Rate 97.6 F L 96 20 H 114/73 95 Room Air 2 02/24/23 14:20 02/24/23 14:20 02/24/23 14:20 02/24/23 14:20 02/24/23 14:20 02/24/23 14:20 02/24/23 08:00 Oxygen Flow Rate (L/min) 2 Oxygen Delivery Method Room Air Weight: 198 lb 13.711 oz Body Mass Index (BMI) 40.1 Intake & Output: Intake and Output for Last 24 Hours 02/22/23 02/23/23 02/24/23 23:59 23:59 23:59 Intake Total 1148.21 / 1148.21 351.88 / 451.88 580 / 580 Output Total 1100 / 1600 1150 / 1150 Balance 48.21 / -451.79 -798.12 / -698.12 580 / 580 Lab / Micro Data 02/24/23 03:45 02/24/23 03:45 Labs: Laboratory Results - last 24 hr 02/24/23 03:45: WBC 10.0, RBC 4.79, Hgb 13.0, Hct 40.9, MCV 85.4, MCH 27.1, MCHC 31.8 L, RDW Std Deviation 43.4, RDW Coeff of [place] 13.8, Plt Count 241, MPV 10.3, Immature Gran % (Auto) 0.700, Neut % (Auto) 55.5, Lymph % (Auto) 34.3, [place] % (Auto) 6.8, Eos % (Auto) 2.2, Baso % (Auto) 0.5, Absolute Neuts (auto) 5.5, Absolute Lymphs (auto) 3.41, Nucleated RBC % 0, Sodium 143, Potassium 3.3 L, Chloride 106, Carbon Dioxide 33.0 H, Anion Gap 4 L, BUN 42 H, Creatinine 1.44 H, Estim Creat Clear Calc 39.93, Est GFR (MDRD) Af Amer 45 L, Est GFR (MDRD) Non-Af 37 L, BUN/Creatinine Ratio 29.2 H, Glucose 141 H, Calcium 9.4, Total Bilirubin 0.70, AST 118 H, ALT 63 H, Alkaline Phosphatase 52, Total Protein 6.6, Albumin 2.5 L, Globulin 4.1, Albumin/Globulin Ratio 0.6 L Rhythm Strip Rhythm Strip: A-fib Cardiology Labs/Tests 02/24/23 03:45: WBC 10.0, RBC 4.79, Hgb 13.0, Hct 40.9, MCV 85.4, MCH 27.1, MCHC 31.8 L, Plt Count 241, MPV 10.3, Immature Gran % (Auto) 0.700, Neut % (Auto) 55.5, Lymph % (Auto) 34.3, [place] % (Auto) 6.8, Eos % (Auto) 2.2, Baso % (Auto) 0.5, Absolute Neuts (auto) 5.5, Nucleated RBC % 0, Sodium 143, Potassium 3.3 L, Chloride 106, Carbon Dioxide 33.0 H, Anion Gap 4 L, BUN 42 H, Creatinine 1.44 H, Est GFR (MDRD) Af Amer 45 L, Est GFR (MDRD) Non-Af 37 L, BUN/Creatinine Ratio 29.2 H, Glucose 141 H, Calcium 9.4, Total Bilirubin 0.70 Rhythm: EKG: ECHO: Stress Test: Cardiac Cath: PCI: CT Surgery: Holter monitor: EPS: PPM: CXR: Chest CT Scan: Physical Exam Narrative No apparent distress. Heart sounds 1 and 2 noted. No murmurs. No rubs. Chest clear to auscultation bilaterally. Trace bilateral ankle edema. Assessment & Plan Assessment/Plan (1) STEMI (ST elevation myocardial infarction): PLAN: Status post drug-eluting stent to the proximal left circumflex. Continue aspirin. Continue clopidogrel. Overall normal left ventricular systolic function. No LUIS MANUEL inhibitors for now as the goal is to maximize beta-maicol therapy and her blood pressure is borderline. (2) Sustained ventricular tachycardia: PLAN: Resolved. No ventricular ectopy. On beta-blockers. Changed to metopr olol extended release 100 mg daily. Continue to monitor. (3) Coronary artery disease: PLAN: Beta-blockers. (4) Mitral regurgitation: PLAN: Moderate mitral regurgitation. We will continue to monitor. Continue diuretics. (5) Renal insufficiency: PLAN: Continue to monitor. (6) Atrial fibrillation: PLAN: Transient in the setting of acute myocardial infarction. Resolved. (7) Dyslipidemia: PLAN: Atorvastatin. (8) Pulmonary hypertension: PLAN: Monitor. Continue diuretics. (9) Pneumonia: PLAN: Continue to manage as per internal medicine. PLAN: Plan Possible discharge home tomorrow.
[2023-02-24] MEDS: Atorvastatin Calcium 40 MG Tablet PO (21:03)
[2023-02-24] MEDS: Metoprolol(XL)Succ 100 MG Tablet PO (21:03)
[2023-02-25] VITALS (9 sets, daily range): BP systolic 118–148; BP diastolic 75–84; PULSE 85–95; RESP 19–31; TEMP 35.9–36.3; O2SAT 93–100; BMI 40.1
[2023-02-25 02:55] LABS: Absolute Neutrophil Count 5.2 X10^3/uL (2.0-7.7); Basophil# 0.05 X10^3/uL; Basophil% 0.5 % (0-1); Eosinophil# 0.23 X10^3/uL; Eosinophils% 2.4 % (0-5); Hematocrit 40.8 % (37-47); Hemoglobin 12.6 g/dL (12.0-15.0); Lymphocyte % 33.9 % (19-41); Mean Corp Hgb Conc 30.9 g/dL (32-36); Mean Corpuscular Hgb 26.4 pg (27.0-32.0); Mean Corpuscular Volume 85.5 fL (81-99); Mean Platelet Vol. 10.2 fl (6.2-12.0); Monocyte# 0.72 X10^3/uL; Monocyte% 7.6 % (0-10); NRBC Flagged by Analyzer 0 % (0-5); Neutrophil # 5.17 X10^3/uL (2.7-7.7); Neutrophil % 54.9 % (47-70); Platelet Count 264 K/mm3 (150-450); RBC Distribution Width CV 13.8 % (11.6-14.6); RBC Distribution Width SD 43.2 fl (35.1-43.9); Red Blood Count 4.77 M/mm3 (4.2-5.4); White Blood Count 9.4 K/mm3 (4.4-11.0)
[2023-02-25 03:12] LABS: ALB/GLOB Ratio 0.6 RATIO (0.9-2.4); AST(SGOT) 75 U/L (15-37); Alanine Aminotransfer ALT/SGPT 50 U/L (13-56); Albumin, Serum 2.5 g/dL (3.2-5.0); Alkaline Phosphatase 52 U/L (45-117); Anion Gap 6 (5-15); BUN 42 mg/dL (7-18); BUN/Creat Ratio 33.6 RATIO (10-20); Calcium,Total 9.4 mg/dL (8.5-10.1); Chloride 106 mmol/L (98-107); Creatinine, Serum 1.25 mg/dL (0.55-1.02); EST Glomerular Filtration Rate 43 mL/min (>60); Est Glom Filt Rate - Afr Amer 52 mL/min (>60); Globulin 3.9 g/dL (2.2-4.2); Glucose 128 mg/dL (74-106); Potassium 3.3 mmol/L (3.5-5.1); Protein, Total 6.4 g/dL (6.4-8.2); Sodium Level 142 mmol/L (136-145)
[2023-02-25] MEDS: Metoprolol(XL)Succ 100 MG Tablet PO (08:22)
[2023-02-25] MEDS: Furosemide 40 MG Tablet PO ×2 (08:22→16:05)
[2023-02-25] MEDS: Aspirin E.C. 81 MG Tablet PO (08:22)
[2023-02-25] MEDS: Famotidine 20 MG Tablet PO (08:23)
[2023-02-25] MEDS: Potassium Chloride Oral Tablet 20 MEQ 40 MEQ PO (08:23)
[2023-02-25] MEDS: Clopidogrel Bisulfate 75 MG Tablet PO (08:23)
[2023-02-25] MEDS: Enoxaparin 40 MG/0.4 ML Syringe SC (08:23)
[2023-02-25] MEDS: Sodium Chloride 0.65% 1 SPRAY SPRAY.BTL 2 SPRAY NASAL (08:23)
--- NOTE | 2023-02-25 11:55 | CT_ITS ---
STUDY: CTA CHEST REASON FOR EXAM: Female, 87 years old. Shortness of breath RADIATION DOSAGE (If Supplied By Facility): CTDIvol = ( 15.69 ) mGy, DLP = ( 492.11 ) mGycm TECHNIQUE: The examination was performed with the intravenous administration of IV 100mL Isovue-370. Post-processing of the angiographic images was performed, with multiplanar reformation and 3D reconstruction. Individualized dose optimization techniques were used for this CT. COMPARISON: Comparison is made with prior chest radiograph dated February 21, 2023. FINDINGS: Normal enhancement of the main pulmonary artery and right and left pulmonary arteries. Normal enhancement of the bilateral peripheral pulmonary arteries. There is no demonstrated pulmonary embolism. There is atherosclerotic calcification of the aortic arch with tortuosity. There is no demonstrated aortic dissection. There are calcifications of the coronary arteries. Normal mediastinum. Normal hilar regions. Normal visualized trachea and bronchi. The lungs are well expanded. Small bilateral pleural effusions with mild degree of bibasilar atelectasis. There is a 6.1 mm noncalcified nodule in the lateral aspect of the right middle lobe as seen on axial image #103. There is also evidence of a 1.8 cm pleural-based nodule in the anterior aspect of the lingular segment of the left upper lobe. This may represent a focal liver scarring although correlation with a PET scan is recommended. Increased interstitial markings are seen more prominent in the lung bases. An element of CHF should be ruled out. Normal chest wall structures. There are degenerative changes of thoracic spine. Normal visualized upper abdomen. CT/CTA Chest W/WO Contrast IMPRESSION: No evidence of pulmonary embolism. Bilateral pleural effusions with bibasilar atelectasis. Increased interstitial markings suggestive of possible CHF. 6.1 mm noncalcified nodule in the anterolateral aspect of the right middle lobe. 1.8 cm pleural-based nodule in the anterior aspect of the lingular segment of the left upper lobe. Correlation with a PET scan is recommended. Electronically Signed: Sean Quintana MD at 12:30 EDT ,
--- NOTE | 2023-02-25 12:30 | ECHOL_ITS ---
Reason For Study: CAD/ASHD Procedure This was a limited 2D transthoracic echocardiogram. Exam performed portable in ICU/CCU. Left Ventricle Normal LV size. Left ventricular systolic function is normal. The left ventricular ejection fraction is 60 %. Papillary muscle dysfunction noted likely secondary to recent myocardial ischemia. Posterior-Basal: Severely hypokinetic. Lateral-Basal: Severely Hypokinetic. Mid-Posterior: Severely Hypokinetic. Mid-Lateral : Hypokinetic. Right Ventricle Normal RV size. Normal systolic function. Mitral Valve There is mild to moderate mitral annular calcification. Moderately severe (3+) eccentric mitral valve insufficiency. Tricuspid Valve Normal tricuspid valve. Moderately severe (3+) tricuspid valve insufficiency. Pulmonary artery systolic pressure is 83 mmHg. Severe pulmonary hypertension. Pericardium/Pleural No pericardial effusion. MMode/2D Measurements & Calculations RVDd: 3.7 cm SV(MOD-sp4): 33.6 ml LVAd ap4: 22.1 cm2 LVLd ap4: 7.2 cm EDV(MOD-sp4): 57.0 ml EDV(sp4-el): 57.9 ml LVAs ap4: 12.8 cm2 LVLs ap4: 6.2 cm ESV(MOD-sp4): 23.3 ml ESV(sp4-el): 22.4 ml EF(MOD-sp4): 59.0 % EF(sp4-el): 61.3 % SV(sp4-el): 35.5 ml Doppler Measurements & Calculations TR max lisa: 439.5 cm/sec TR max P.3 mmHg ECHO/Echo, Limited Study Interpretation Summary Normal LV size. Left ventricular systolic function is normal. The left ventricular ejection fraction is 60 %. Papillary muscle dysfunction noted likely secondary to recent myocardial ischem ia Pulmonary artery systolic pressure is 83 mmHg. Severe pulmonary hypertension. Ordering Physician: Estelle Villegas Referring Physician: TRAV CARVER Performed By: Earline Hylton RDCS
--- NOTE | 2023-02-25 13:07 | PCM.PN.CARD ---
Subjective Subjective Complains of dyspnea on exertion. Per patient, this has been a longstanding problem for her but after her MN, she notices it to be worse. No chest pain. Objective Data Vital Signs: Vital Signs Temp Pulse Resp BP Pulse Ox O2 Del Method O2 Flow Rate 96.9 F L 88 22 H 118/75 96 Room Air 0 02/25/23 08:00 02/25/23 08:22 02/25/23 08:00 02/25/23 08:22 02/25/23 10:56 02/25/23 08:00 02/25/23 10:56 Oxygen Flow Rate (L/min) [ 0 AMBULATING on Room Air] Oxygen Flow Rate (L/min) [At 0 REST on Room Air] Oxygen Flow Rate (L/min) 2 Oxygen Delivery Method Room Air Weight: 199 lb 8.293 oz Body Mass Index (BMI) 40.1 Intake & Output: Intake and Output for Last 24 Hours 02/23/23 02/24/23 02/25/23 23:59 23:59 23:59 Intake Total 351.88 / 451.88 820 / 820 235 / 235 Output Total 1150 / 1150 200 / 200 300 / 300 Balance -798.12 / -698.12 620 / 620 -65 / -65 Lab / Micro Data 02/25/23 02:50 02/25/23 02:50 Labs: Laboratory Results - last 24 hr 02/24/23 03:45: WBC 10.0, RBC 4.79, Hgb 13.0, Hct 40.9, MCV 85.4, MCH 27.1, MCHC 31.8 L, RDW Std Deviation 43.4, RDW Coeff of Maliha 13.8, Plt Count 241, MPV 10.3, Immature Gran % (Auto) 0.700, Neut % (Auto) 55.5, Lymph % (Auto) 34.3, [place] % (Auto) 6.8, Eos % (Auto) 2.2, Baso % (Auto) 0.5, Absolute Neuts (auto) 5.5, Absolute Lymphs (auto) 3.41, Nucleated RBC % 0 02/25/23 02:50: WBC 9.4, RBC 4.77, Hgb 12.6, Hct 40.8, MCV 85.5, MCH 26.4 L, MCHC 30.9 L, RDW Std Deviation 43.2, RDW Coeff of Mali[place] 13.8, Plt Count 264, MPV 10.2, Immature Gran % (Auto) 0.700, Neut % (Auto) 54.9, Lymph % (Auto) 33.9, [place] % (Auto) 7.6, Eos % (Auto) 2.4, Baso % (Auto) 0.5, Absolute Neuts (auto) 5.2, Absolute Lymphs (auto) 3.20, Nucleated RBC % 0, Sodium 142, Potassium 3.3 L, Chloride 106, Carbon Dioxide 30.0, Anion Gap 6, BUN 42 H, Creatinine 1.25 H, Estim Creat Clear Calc 46.00, Est GFR (MDRD) Af Amer 52 L, Est GFR (MDRD) Non-Af 43 L, BUN/Creatinine Ratio 33.6 H, Glucose 128 H, Calcium 9.4, Total Bilirubin 0.60, AST 75 H, ALT 50, Alkaline Phosphatase 52, Total Protein 6.4, Albumin 2.5 L, Globulin 3.9, Albumin/Globulin Ratio 0.6 L Rhythm Strip Rhythm Strip: A-fib Cardiology Labs/Tests 02/24/23 03:45: WBC 10.0, RBC 4.79, Hgb 13.0, Hct 40.9, MCV 85.4, MCH 27.1, MCHC 31.8 L, Plt Count 241, MPV 10.3, Immature Gran % (Auto) 0.700, Neut % (Auto) 55.5, Lymph % (Auto) 34.3, [place] % (Auto) 6.8, Eos % (Auto) 2.2, Baso % (Auto) 0.5, Absolute Neuts (auto) 5.5, Nucleated RBC % 0 02/25/23 02:50: WBC 9.4, RBC 4.77, Hgb 12.6, Hct 40.8, MCV 85.5, MCH 26.4 L, MCHC 30.9 L, Plt Count 264, MPV 10.2, Immature Gran % (Auto) 0.700, Neut % (Auto) 54.9, Lymph % (Auto) 33.9, [place] % (Auto) 7.6, Eos % (Auto) 2.4, Baso % (Auto) 0.5, Absolute Neuts (auto) 5.2, Nucleated RBC % 0, Sodium 142, Potassium 3.3 L, Chloride 106, Carbon Dioxide 30.0, Anion Gap 6, BUN 42 H, Creatinine 1.25 H, Est GFR (MDRD) Af Amer 52 L, Est GFR (MDRD) Non-Af 43 L, BUN/Creatinine Ratio 33.6 H, Glucose 128 H, Calcium 9.4, Total Bilirubin 0.60 Rhythm: EKG: ECHO: Stress Test: Cardiac Cath: PCI: CT Surgery: Holter monitor: EPS: PPM: CXR: Chest CT Scan: Radiography Diagnostic Testing: Radiology Impression Chest CTA 02/25/23 11:55 IMPRESSION: No evidence of pulmonary embolism. Bilateral pleural effusions with bibasilar atelectasis. Increased interstitial markings suggestive of possible CHF. 6.1 mm noncalcified nodule in the anterolateral aspect of the right middle lobe. 1.8 cm pleural-based nodule in the anterior aspect of the lingular segment of the left upper lobe. Correlation with a PET scan is recommended. Electronically Signed: Sean Quintana MD at 12:30 EDT , Physical Exam Narrative No apparent distress. Heart sounds 1 and 2 noted. No murmurs. No rubs. Chest clear to auscultation bilaterally. Trace bilateral ankle edema. Assessment & Plan Assessment/Plan (1) Dyspnea on exertion: PLAN: Severe pulmonary hypertension. Moderate mitral regurgitation. Continue diuresis. Increase Lasix to 40 mg twice daily. Add low-dose LUIS MANUEL inhibitor. Monitor creatinine. (2) STEMI (ST elevation myocardial infarction): PLAN: Status post drug-eluting stent to the proximal left circumflex. Continue aspirin. Continue clopidogrel. Overall normal left ventricular systolic function. No LUIS MANUEL inhibitors for now as the goal is to maximize beta-maicol therapy and her blood pressure is borderline. (3) Sustained ventricular tachycardia: PLAN: Resolved. Continue metoprolol. (4) Coronary artery disease: PLAN: Beta-blockers. (5) Mitral regurgitation: PLAN: See #1 above. (6) Renal insufficiency: PLAN: Continue to monitor. (7) Atrial fibrillation: PLAN: Transient in the setting of acute myocardial infarction. Resolved. (8) Dyslipidemia: PLAN: Atorvastatin. (9) Pulmonary hypertension: PLAN: Monitor. Continue diuretics. PLAN: Plan Dr. Alex will be covering over the weekend.
[2023-02-25] MEDS: Lisinopril 5 MG Tablet PO (13:08)
--- NOTE | 2023-02-25 14:56 | PN_ITS ---
Subjective Subjective Patient seen and examined. She states she feels short of breath with mild exertion. She is on room air. She denies any chest pain, palpitations, dizziness, nausea or vomiting or any other symptoms. Review of systems otherwise negative. Objective Data Objective Data Vital Signs: Vital Signs Temp Pulse Resp BP Pulse Ox O2 Del Method O2 Flow Rate 97.3 F L 85 24 H 118/78 94 Room Air 0 02/25/23 13:06 02/25/23 13:06 02/25/23 13:06 02/25/23 13:06 02/25/23 13:06 02/25/23 13:58 02/25/23 10:56 Oxygen Flow Rate (L/min) [ 0 AMBULATING on Room Air] Oxygen Flow Rate (L/min) [At 0 REST on Room Air] Oxygen Flow Rate (L/min) 2 Oxygen Delivery Method Room Air Weight: 199 lb 8.293 oz Body Mass Index (BMI) 40.1 Intake & Output: Intake and Output for Last 24 Hours 02/23/23 02/24/23 02/25/23 23:59 23:59 23:59 Intake Total 351.88 / 451.88 820 / 820 235 / 235 Output Total 1150 / 1150 200 / 200 300 / 300 Balance -798.12 / -698.12 620 / 620 -65 / -65 Lab / Micro Data 02/25/23 02:50 02/25/23 02:50 Labs: Laboratory Results - last 24 hr 02/25/23 02:50: WBC 9.4, RBC 4.77, Hgb 12.6, Hct 40.8, MCV 85.5, MCH 26.4 L, MCH C 30.9 L, RDW Std Deviation 43.2, RDW Coeff of [place] 13.8, Plt Count 264, MPV 10.2, Immature Gran % (Auto) 0.700, Neut % (Auto) 54.9, Lymph % (Auto) 33.9, [place] % (Auto) 7.6, Eos % (Auto) 2.4, Baso % (Auto) 0.5, Absolute Neuts (auto) 5.2, Absolute Lymphs (auto) 3.20, Nucleated RBC % 0, Sodium 142, Potassium 3.3 L , Chloride 106, Carbon Dioxide 30.0, Anion Gap 6, BUN 42 H, Creatinine 1.25 H, Estim Creat Clear Calc 46.00, Est GFR (MDRD) Af Amer 52 L, Est GFR (MDRD) Non-Af 43 L, BUN/Creatinine Ratio 33.6 H, Glucose 128 H, Calcium 9.4, Total Bilirubin 0.60, AST 75 H, ALT 50, Alkaline Phosphatase 52, Total Protein 6.4, Albumin 2.5 L, Globulin 3.9, Albumin/Globulin Ratio 0.6 L Radiography Diagnostic Testing: Radiology Impression Chest CTA 02/25/23 11:55 IMPRESSION: No evidence of pulmonary embolism. Bilateral pleural effusions with bibasilar atelectasis. Increased interstitial markings suggestive of possible CHF. 6.1 mm noncalcified nodule in the anterolateral aspect of the right middle lobe. 1.8 cm pleural-based nodule in the anterior aspect of the lingular segment of the left upper lobe. Correlation with a PET scan is recommended. Electronically Signed: Sean Quintana MD at 12:30 EDT , Rhythm Strip Rhythm Strip: A-fib Physical Exam Const alert, oriented x3 and no apparent distress General Appearance: cooperative HEENT normocephalic, head/scalp atraumatic, moist oral mucous membranes and oropharynx normal Eyes PERRL and EOMs intact bilaterally Neck no lymphadenopathy and supple Lymph Lymphatic: no lymphadenopathy noted and no lymphedema noted Resp normal respiratory effort, normal air movement and clear to auscultation bilaterally Cardio regular rate, regular rhythm, S1 normal heart sound, S2 normal heart sound and no murmurs GI normal to inspection, nondistended, normoactive bowel sounds, soft to palpation, non-tender and non-distended Extremity normal capillary refill, no clubbing, cyanosis or edema and no calf tenderness Skin General Skin Exam: no breakdown Neuro CN's II-XII intact bilaterally, no focal motor deficits, no sensory deficits noted and deep tendon reflexes 2+ bilaterally Motor Exam: strength 5/5 throughout and general weakness Psych thought process normal Appearance: appropriate Assessment & Plan Assessment/Plan (1) STEMI (ST elevation myocardial infarction): (2) Stented coronary artery: PLAN: Plan #STEMI * s/p cardiac cath which occlusion of proximal left circumflex artry. She had thrombectomy and PCI with LIGIA. * 2D echo showed stage III diastolic dusfynction and basal to mid posterior and lateral severe hypokinesis * on aspirin and plavix, on metoprolol * on high intensity statin * cardiology on board. * feels very easily short of breath with mild ambulation. CTA chest done today was negative for PE, but showed bilateral pleural effusions. * cardiology ordered repeat 2D echo and her lasix dose also increased to 40mg bid. * #Epistaxis * didnt recur overnight. On nasal saline spray. * #HFpEF * on IV lasix * monitor intake and output. Fluid restriction to 1500cc daily. * cardiology on board * #Afib * develop after Stemi * HR has improved. Did require some lidocaine and was given lidocaine drip during this admission on account of nonsustained V. tach. * cardiology on board. * #Hypokalemia:potassium is still 3.3 today. Will replace and trend. #transaminitis * resolving and trending downwards. * will monitor. Largely resolved. * Liver USG was normal. * #Probable CKD * baseline Cr from 2019 showed Cr of 1.36. * Cr is 1.44 today * will monitor * DVT prophylaxis: SCDs * Charges/Coding Visit Charges Inpatient E&M: 17642 Subs Hosp L2
--- NOTE | 2023-02-25 15:39 | CASEMGMT ---
NELLIE SON NOTE: RN ADELAIDA to room earlier to talk w/pt. Pt sitting up in chair in room. She states she still wishes to discharge home w/[facility] once she is medically ready. Per Dr Sutton, pt will most likely be medically ready for discharge tomorrow. Joann @ [facility] made aware and states let NELLIE SON know of new SOC date once determined. Lisa EASLEY RN RM
[2023-02-25] MEDS: Potassium Chloride Oral Tablet 20 MEQ PO (16:05)
[2023-02-25] MEDS: Atorvastatin Calcium 40 MG Tablet PO (22:02)
[2023-02-25] MEDS: Zolpidem Tartrate 5 MG Tablet PO (23:37)
[2023-02-26] VITALS (8 sets, daily range): BP systolic 102–128; BP diastolic 60–84; PULSE 86–94; RESP 18–27; TEMP 36.2–36.8; O2SAT 90–96; BMI 39.4
--- NOTE | 2023-02-26 02:00 | NURSING ---
Pt restless this pm, attempted to provide pt w/ comfort measures such as pillows, positioning, etc. to promote rest before attempting medications, ineffective 2337- pt given prn Ambien per EMAR 0130- pt disoriented and confused, not following commands, pulling at lines and attempting to leave bed. Unable to redirect. Pt very fatigued, falling asleep while talking then waking and becoming agitated and restless again. [employer] w/ pt bedside for safety, Dr. Pastor notified of patient's behavior. Ambien DC'd per Dr. Pastor. Bed alarm set on patient, [employer] remained w/ pt until settled. Continued w/ intermittent episodes of restlessness throughout the night, continued to reorient patient, provide bedside commode as needed and reassurance to patient.
--- NOTE | 2023-02-26 02:27 | PCM.HOSP.N ---
Hospitalist Note Patient with first dose of low dose ambien this evening now with notable hallucinations, restlessness, agitated, not unexpected with this medication at her age. Will d/c. If she needs another agent noted to nursing staff we could consider low dose seroquel versus low dose trazodone.
[2023-02-26 04:33] LABS: Absolute Lymphocyte Count 1.56 X10^3/uL (0.83-4.51); Absolute Neutrophil Count 7.7 X10^3/uL (2.0-7.7); Basophil# 0.05 X10^3/uL; Basophil% 0.5 % (0-1); Eosinophil# 0.09 X10^3/uL; Eosinophils% 0.9 % (0-5); Hematocrit 45.4 % (37-47); Hemoglobin 14.4 g/dL (12.0-15.0); Lymphocyte # 1.56 X10^3/ul (0.83-4.51); Lymphocyte % 15.1 % (19-41); Mean Corp Hgb Conc 31.7 g/dL (32-36); Mean Corpuscular Hgb 27.1 pg (27.0-32.0); Mean Corpuscular Volume 85.5 fL (81-99); Monocyte# 0.78 X10^3/uL; Monocyte% 7.6 % (0-10); NRBC Flagged by Analyzer 0 % (0-5); Neutrophil # 7.73 X10^3/uL (2.7-7.7); Platelet Count 291 K/mm3 (150-450); RBC Distribution Width CV 14.3 % (11.6-14.6); RBC Distribution Width SD 44.4 fl (35.1-43.9); Red Blood Count 5.31 M/mm3 (4.2-5.4); White Blood Count 10.3 K/mm3 (4.4-11.0)
[2023-02-26 04:55] LABS: ALB/GLOB Ratio 0.7 RATIO (0.9-2.4); AST(SGOT) 46 U/L (15-37); Alanine Aminotransfer ALT/SGPT 42 U/L (13-56); Albumin, Serum 2.9 g/dL (3.2-5.0); Alkaline Phosphatase 59 U/L (45-117); Anion Gap 7 (5-15); BUN 36 mg/dL (7-18); BUN/Creat Ratio 27.3 RATIO (10-20); Calcium,Total 10.2 mg/dL (8.5-10.1); Chloride 106 mmol/L (98-107); Creatinine, Serum 1.32 mg/dL (0.55-1.02); EST Glomerular Filtration Rate 41 mL/min (>60); Est Glom Filt Rate - Afr Amer 49 mL/min (>60); Estimated Creatinine Clearance 43.71 ml/min; Globulin 4.4 g/dL (2.2-4.2); Glucose 149 mg/dL (74-106); Protein, Total 7.3 g/dL (6.4-8.2); Sodium Level 143 mmol/L (136-145)
--- NOTE | 2023-02-26 07:57 | PN.CARD_ITS ---
Subjective Subjective Patient seen and evaluated. Sleeping. Objective Data Vital Signs: Vital Signs Temp Pulse Resp BP Pulse Ox O2 Del Method O2 Flow Rate 97.2 F L 89 27 H 128/84 H 94 Nasal Cannula 2 02/26/23 02:00 02/26/23 02:00 02/26/23 02:00 02/26/23 02:00 02/26/23 02:00 02/26/23 02:00 02/26/23 02:00 Oxygen Flow Rate (L/min) [ 0 AMBULATING on Room Air] Oxygen Flow Rate (L/min) [At 0 REST on Room Air] Oxygen Flow Rate (L/min) 2 Oxygen Delivery Method Nasal Cannula Weight: 195 lb 1.745 oz Body Mass Index (BMI) 39.4 Intake & Output: Intake and Output for Last 24 Hours 02/24/23 02/25/23 02/26/23 23:59 23:59 23:59 Intake Total 820 / 820 515 / 515 Output Total 200 / 200 1300 / 1550 525 / 525 Balance 620 / 620 -785 / -1035 -525 / -525 Lab / Micro Data 02/26/23 04:25 02/26/23 04:25 Labs: Laboratory Results - last 24 hr 02/26/23 04:25: WBC 10.3, RBC 5.31, Hgb 14.4, Hct 45.4, MCV 85.5, MCH 27.1, MCHC 31.7 L, RDW Std Deviation 44.4 H, RDW Coeff of [place] 14.3, Plt Count 291, MPV 10.0, Immature Gran % (Auto) 0.900, Neut % (Auto) 75.0 H, Lymph % (Auto) 15.1 L, Bee % (Auto) 7.6, Eos % (Auto) 0.9, Baso % (Auto) 0.5, Absolute Neuts (auto) 7.7, Absolute Lymphs (auto) 1.56, Nucleated RBC % 0, Sodium 143, Potassium 4.0, Chloride 106, Carbon Dioxide 30.0, Anion Gap 7, BUN 36 H, Creatinine 1.32 H, Estim Creat Clear Calc 43.71, Est GFR (MDRD) Af Amer 49 L, Est GFR (MDRD) Non-Af 41 L, BUN/Creatinine Ratio 27.3 H, Glucose 149 H, Calcium 10.2 H, Total Bilirubin 0.80, AST 46 H, ALT 42, Alkaline Phosphatase 59, Total Protein 7.3, Albumin 2.9 L, Globulin 4.4 H, Albumin/Globulin Ratio 0.7 L Rhythm Strip Rhythm Strip: A-formerly [facility] Cardiology Labs/Tests 02/26/23 04:25: WBC 10.3, RBC 5.31, Hgb 14.4, Hct 45.4, MCV 85.5, MCH 27.1, MCHC 31.7 L, Plt Count 291, MPV 10.0, Immature Gran % (Auto) 0.900, Neut % (Auto) 75.0 H, Lymph % (Auto) 15.1 L, Bee % (Auto) 7.6, Eos % (Auto) 0.9, Baso % (Auto) 0.5, Absolute Neuts (auto) 7.7, Nucleated RBC % 0, Sodium 143, Potassium 4.0, Chloride 106, Carbon Dioxide 30.0, Anion Gap 7, BUN 36 H, Creatinine 1.32 H , Est GFR (MDRD) Af Amer 49 L, Est GFR (MDRD) Non-Af 41 L, BUN/Creatinine Ratio 27.3 H, Glucose 149 H, Calcium 10.2 H, Total Bilirubin 0.80 Rhythm: EKG: ECHO: Stress Test: Cardiac Cath: PCI: CT Surgery: Holter monitor: EPS: PPM: CXR: Chest CT Scan: Radiography Diagnostic Testing: Radiology Impression Chest CTA 02/25/23 11:55 IMPRESSION: No evidence of pulmonary embolism. Bilateral pleural effusions with bibasilar atelectasis. Increased interstitial markings suggestive of possible CHF. 6.1 mm noncalcified nodule in the anterolateral aspect of the right middle lobe. 1.8 cm pleural-based nodule in the anterior aspect of the lingular segment of the left upper lobe. Correlation with a PET scan is recommended. Electronically Signed: Sean Quintana MD at 12:30 EDT , Echocardiogram 02/25/23 12:30 Interpretation Summary Normal LV size. Left ventricular systolic function is normal. The left ventricular ejection fraction is 60 %. Papillary muscle dysfunction noted likely secondary to recent myocardial ischemia Pulmonary artery systolic pressure is 83 mmHg. Severe pulmonary hypertension. Ordering Physician: Estelle Villegas Referring Physician: TRAV CARVER Performed By: Earline Hylton RDCS Physical Exam Const alert, oriented x3 and no apparent distress General Appearance: cooperative HEENT hearing grossly normal bilaterally Head and Scalp: atraumatic Eyes EOMs intact bilaterally Neck General: normal visual inspection Chest inspection of chest normal and palpation of chest normal Resp normal respiratory effort Auscultation: clear to auscultation bilaterally Cardio regular rate, regular rhythm, S1 normal heart sound and S2 normal heart sound Jugular Venous Distention: JVD Heart Sounds: murmur GI normal to inspection, nondistended, normoactive bowel sounds Extremity normal capillary refill and no pedal edema Peripheral Pulses: Yes pulses 2+ throughout and femoral pulses present Skin no rashes or lesions noted Neuro oriented x3 and CN's II-XII intact bilaterally Psych Appearance: grossly normal and appropriate Assessment & Plan Assessment/Plan (1) Stented coronary artery: PLAN: Patient underwent angioplasty and stenting of the circumflex artery following a myocardial infarction. She does have residual papillary muscle dysfunction causing mitral regurgitation. The plan number to continue her on aspirin, ticagrelor, beta-maicol, high intensity statin. She will start cardiac rehabilitation when able. (2) Mitral regurgitation: PLAN: She does have moderately severe mitral regurgitation likely secondary to papillary muscle dysfunction, and mitral calcification. * Will continue to treat the above with diuretic management and then repeat echocardiogram in a few weeks. If there is no improvement may need to consider mitral valve clip (3) Pulmonary hypertension: PLAN: She does have severe pulmonary hypertension likely secondary to left heart disease. We will continue with oral Lasix and also spironolactone.
[2023-02-26] MEDS: Metoprolol(XL)Succ 100 MG Tablet PO (08:17)
[2023-02-26] MEDS: Famotidine 20 MG Tablet PO (08:17)
[2023-02-26] MEDS: Aspirin E.C. 81 MG Tablet PO (08:17)
[2023-02-26] MEDS: Enoxaparin 40 MG/0.4 ML Syringe SC (08:18)
[2023-02-26] MEDS: Lisinopril 5 MG Tablet PO (08:18)
[2023-02-26] MEDS: Furosemide 40 MG Tablet PO ×2 (08:22→21:11)
[2023-02-26] MEDS: Spironolactone 25 MG Tablet PO (09:44)
--- NOTE | 2023-02-26 13:45 | PN_ITS ---
Subjective Subjective Patient seen and examined. She still feels short of breath though she is on room air. She denied any chest pain, palpitations, dizziness, nausea, vomiting or any other symptoms. Review of systems is otherwise negative. Objective Data Objective Data Vital Signs: Vital Signs Temp Pulse Resp BP Pulse Ox O2 Del Method O2 Flow Rate 97.7 F L 90 24 H 106/62 96 Room Air 2 02/26/23 08:27 02/26/23 08:27 02/26/23 08:27 02/26/23 08:27 02/26/23 08:27 02/26/23 08:27 02/26/23 02:00 Oxygen Flow Rate (L/min) [ 0 AMBULATING on Room Air] Oxygen Flow Rate (L/min) [At 0 REST on Room Air] Oxygen Flow Rate (L/min) 2 Oxygen Delivery Method Room Air Weight: 195 lb 1.745 oz Body Mass Index (BMI) 39.4 Intake & Output: Intake and Output for Last 24 Hours 02/24/23 02/25/23 02/26/23 23:59 23:59 23:59 Intake Total 820 / 820 515 / 515 Output Total 200 / 200 1300 / 1550 525 / 525 Balance 620 / 620 -785 / -1035 -525 / -525 Lab / Micro Data 02/26/23 04:25 02/26/23 04:25 Labs: Laboratory Results - last 24 hr 02/26/23 04:25: WBC 10.3, RBC 5.31, Hgb 14.4, Hct 45.4, MCV 85.5, MCH 27.1, MCHC 31.7 L, RDW Std Deviation 44.4 H, RDW Coeff of [place] 14.3, Plt Count 291, MPV 10.0, Immature Gran % (Auto) 0.900, Neut % (Auto) 75.0 H, Lymph % (Auto) 15.1 L, [place] % (Auto) 7.6, Eos % (Auto) 0.9, Baso % (Auto) 0.5, Absolute Neuts (auto) 7.7, Absolute Lymphs (auto) 1.56, Nucleated RBC % 0, Sodium 143, Potassium 4.0, Chloride 106, Carbon Dioxide 30.0, Anion Gap 7, BUN 36 H, Creatinine 1.32 H, Estim Creat Clear Calc 43.71, Est GFR (MDRD) Af Amer 49 L, Est GFR (MDRD) Non-Af 41 L, BUN/Creatinine Ratio 27.3 H, Glucose 149 H, Calcium 10.2 H, Total Bilirubin 0.80, AST 46 H, ALT 42, Alkaline Phosphatase 59, Total Protein 7.3, Albumin 2.9 L, Globulin 4.4 H, Albumin/Globulin Ratio 0.7 L Radiography Diagnostic Testing: Radiology Impression Echocardiogram 02/25/23 12:30 Interpretation Summary Normal LV size. Left ventricular systolic function is normal. The left ventricular ejection fraction is 60 %. Papillary muscle dysfunction noted likely secondary to recent myocardial is chemia Pulmonary artery systolic pressure is 83 mmHg. Severe pulmonary hypertension. Ordering Physician: Estelle Villegas Referring Physician: TRAV CARVER Performed By: Earline Hylton RDCS Rhythm Strip Rhythm Strip: A-fib Physical Exam Const alert, oriented x3 and no apparent distress General Appearance: cooperative and well developed HEENT normocephalic, head/scalp atraumatic, moist oral mucous membranes and oropharynx normal Eyes PERRL and EOMs intact bilaterally Neck no lymphadenopathy and supple Lymph Lymphatic: no lymphadenopathy noted and no lymphedema noted Resp normal respiratory effort, normal air movement and clear to auscultation bilaterally Cardio regular rate, regular rhythm, S1 normal heart sound, S2 normal heart sound and no murmurs GI normal to inspection, nondistended, normoactive bowel sounds, soft to palpation, non-tender and non-distended Extremity normal capillary refill, no clubbing, cyanosis or edema and no calf tenderness Skin General Skin Exam: no breakdown Neuro CN's II-XII intact bilaterally, no focal motor deficits, no sensory deficits noted and deep tendon reflexes 2+ bilaterally Motor Exam: strength 5/5 throughout and general weakness Psych thought process normal Appearance: appropriate Assessment & Plan Assessment/Plan (1) STEMI (ST elevation myocardial infarction): (2) Stented coronary artery: PLAN: Plan #STEMI * s/p cardiac cath which occlusion of proximal left circumflex artry. She had thrombectomy and PCI with LIGIA. * 2D echo showed stage III diastolic dysfunction and basal to mid posterior and lateral severe hypokinesis * on aspirin and plavix, on metoprolol * on high intensity statin * cardiology on board. * feels very easily short of breath with mild ambulation. CTA chest yesterday was negative for PE, but showed bilateral pleural effusions. * lasix increased to 40mg bid. * 2D echo showed EF of 60% with pulmonary artery systolic pressure of 83mmHg, indicating severe pulmonary hypertension, and papillary muscle dysfunction noted, likely secondary to recent myocardial ischemia. * shortness of breath likely related to severe pulmonary hypertension. * * #Severe pulmonary hypertension * pulmonary artery hypertension as above. * continue diuresis with lasix and spironolactone * #Severe mitral valve regurgitation * likely due to left heart disease * will monitor * #Epistaxis * resolved. Was likely due dry nostrils from oxygen. On nasal saline spray. * #HFpEF * on IV lasix * monitor intake and output. Fluid restriction to 1500cc daily. * cardiology on board * #Afib * develop after Stemi * HR has improved. Did require some lidocaine and was given lidocaine drip during this admission on account of nonsustained V. tach. * cardiology on board. * #Hypokalemia:potassium is still 3.3 today. Will replace and trend. #transaminitis * resolving and trending downwards. * will monitor. Largely resolved. * Liver USG was normal. * #Probable CKD * baseline Cr from 2019 showed Cr of 1.36. * Cr is 1.32 today * will monitor * DVT prophylaxis: SCDs * Charges/Coding Visit Charges Inpatient E&M: 88342 Subs Hosp L2
--- NOTE | 2023-02-26 14:56 | CASEMGMT ---
NELLIE SON NOTE: Per Dr Sutton, she anticipates pt will be ready to discharge over the weekend. Joann @ [facility] and she was made aware. She states SOC is slated for Wednesday. This was added in pt's discharge plan. Green sheet placed on pt's chart w/instructions to notify [facility] when pt is discharged. Lisa EASLEY RN CM
[2023-02-26] MEDS: MELATONIN 3 MG TABLET PO (21:11)
[2023-02-26] MEDS: Atorvastatin Calcium 40 MG Tablet PO (21:11)
[2023-02-27] VITALS (8 sets, daily range): BP systolic 95–114; BP diastolic 54–74; PULSE 82–96; RESP 16–20; TEMP 36.6–36.7; O2SAT 90–93; BMI 39.5
[2023-02-27 07:18] LABS: Absolute Lymphocyte Count 2.86 X10^3/uL (0.83-4.51); Absolute Neutrophil Count 5.3 X10^3/uL (2.0-7.7); Basophil# 0.07 X10^3/uL; Basophil% 0.7 % (0-1); Eosinophil# 0.38 X10^3/uL; Hematocrit 43.5 % (37-47); Hemoglobin 13.3 g/dL (12.0-15.0); Lymphocyte # 2.86 X10^3/ul (0.83-4.51); Lymphocyte % 29.9 % (19-41); Mean Corp Hgb Conc 30.6 g/dL (32-36); Mean Corpuscular Hgb 26.5 pg (27.0-32.0); Mean Corpuscular Volume 86.8 fL (81-99); Mean Platelet Vol. 10.2 fl (6.2-12.0); Monocyte# 0.87 X10^3/uL; Monocyte% 9.1 % (0-10); NRBC Flagged by Analyzer 0 % (0-5); Neutrophil # 5.26 X10^3/uL (2.7-7.7); Neutrophil % 55.1 % (47-70); Platelet Count 291 K/mm3 (150-450); RBC Distribution Width CV 14.6 % (11.6-14.6); RBC Distribution Width SD 45.9 fl (35.1-43.9); Red Blood Count 5.01 M/mm3 (4.2-5.4); White Blood Count 9.6 K/mm3 (4.4-11.0)
[2023-02-27 07:56] LABS: ALB/GLOB Ratio 0.6 RATIO (0.9-2.4); AST(SGOT) 42 U/L (15-37); Alanine Aminotransfer ALT/SGPT 35 U/L (13-56); Albumin, Serum 2.6 g/dL (3.2-5.0); Alkaline Phosphatase 55 U/L (45-117); Anion Gap 2 (5-15); BUN 38 mg/dL (7-18); BUN/Creat Ratio 27.9 RATIO (10-20); Calcium,Total 9.9 mg/dL (8.5-10.1); Chloride 105 mmol/L (98-107); Creatinine, Serum 1.36 mg/dL (0.55-1.02); EST Glomerular Filtration Rate 39 mL/min (>60); Est Glom Filt Rate - Afr Amer 47 mL/min (>60); Estimated Creatinine Clearance 41.62 ml/min; Glucose 115 mg/dL (74-106); Protein, Total 6.6 g/dL (6.4-8.2); Sodium Level 140 mmol/L (136-145)
[2023-02-27] MEDS: Aspirin E.C. 81 MG Tablet PO (08:30)
[2023-02-27] MEDS: Enoxaparin 40 MG/0.4 ML Syringe SC (08:36)
[2023-02-27] MEDS: Famotidine 20 MG Tablet PO (08:36)
--- NOTE | 2023-02-27 09:59 | PCM.PN.CARD ---
Subjective Subjective Patient seen and evaluated. Appears to be doing much better. Objective Data Vital Signs: Vital Signs Temp Pulse Resp BP Pulse Ox O2 Del Method O2 Flow Rate 97.8 F 85 16 97/65 93 Room Air 2 02/27/23 08:26 02/27/23 08:26 02/27/23 08:26 02/27/23 08:26 02/27/23 08:26 02/27/23 08:26 02/27/23 04:29 Oxygen Flow Rate (L/min) [ 0 AMBULATING on Room Air] Oxygen Flow Rate (L/min) [At 0 REST on Room Air] Oxygen Flow Rate (L/min) 2 Oxygen Delivery Method Room Air Weight: 195 lb 12.328 oz Body Mass Index (BMI) 39.5 Intake & Output: Intake and Output for Last 24 Hours 02/25/23 02/26/23 02/27/23 23:59 23:59 23:59 Intake Total 515 / 515 50 / 50 Output Total 1300 / 1550 525 / 625 200 / 200 Balance -785 / -1035 -525 / -575 -150 / -150 Lab / Micro Data 02/27/23 07:08 02/27/23 07:08 Labs: Laboratory Results - last 24 hr 02/27/23 07:08: WBC 9.6, RBC 5.01, Hgb 13.3, Hct 43.5, MCV 86.8, MCH 26.5 L, MCHC 30.6 L, RDW Std Deviation 45.9 H, RDW Coeff of [place] 14.6, Plt Count 291, MPV 10.2, Immature Gran % (Auto) 1.200 H, Neut % (Auto) 55.1, Lymph % (Auto) 29.9, [place] % (Auto) 9.1, Eos % (Auto) 4.0, Baso % (Auto) 0.7, Absolute Neuts (auto) 5.3, Absolute Lymphs (auto) 2.86, Nucleated RBC % 0, Sodium 140, Potassium 4.0, Chloride 105, Carbon Dioxide 33.0 H, Anion Gap 2 L, BUN 38 H, Creatinine 1.36 H, Estim Creat Clear Calc 41.62, Est GFR (MDRD) Af Amer 47 L, Est GFR (MDRD) Non-Af 39 L, BUN/Creatinine Ratio 27.9 H, Glucose 115 H, Calcium 9.9, Total Bilirubin 0.70, AST 42 H, ALT 35, Alkaline Phosphatase 55, Total Protein 6.6, Albumin 2.6 L, Globulin 4.0, Albumin/Globulin Ratio 0.6 L Rhythm Strip Rhythm Strip: A-fib Cardiology Labs/Tests 02/27/23 07:08: WBC 9.6, RBC 5.01, Hgb 13.3, Hct 43.5, MCV 86.8, MCH 26.5 L, MCHC 30.6 L, Plt Count 291, MPV 10.2, Immature Gran % (Auto) 1.200 H, Neut % (Auto) 55.1, Lymph % (Auto) 29.9, [place] % (Auto) 9.1, Eos % (Auto) 4.0, Baso % (Auto) 0.7, Absolute Neuts (auto) 5.3, Nucleated RBC % 0, Sodium 140, Potassium 4.0, Chloride 105, Carbon Dioxide 33.0 H, Anion Gap 2 L, BUN 38 H, Creatinine 1.36 H, Est GFR (MDRD) Af Amer 47 L, Est GFR (MDRD) Non-Af 39 L, BUN/Creatinine Ratio 27.9 H, Glucose 115 H, Calcium 9.9, Total Bilirubin 0.70 Rhythm: EKG: ECHO: Stress Test: Cardiac Cath: PCI: CT Surgery: Holter monitor: EPS: PPM: CXR: Chest CT Scan: Physical Exam Const alert, oriented x3 and no apparent distress General Appearance: cooperative HEENT hearing grossly normal bilaterally Head and Scalp: atraumatic Eyes EOMs intact bilaterally Neck General: normal visual inspection Chest inspection of chest normal and palpation of chest normal Resp normal respiratory effort Auscultation: rales left Cardio regular rate, regular rhythm, S1 normal heart sound and S2 normal heart sound Jugular Venous Distention: JVD Heart Sounds: murmur GI normal to inspection, nondistended, normoactive bowel sounds Extremity normal capillary refill and no pedal edema Peripheral Pulses: Yes pulses 2+ throughout and femoral pulses present Skin no rashes or lesions noted Neuro oriented x3 and CN's II-XII intact bilaterally Psych Appearance: grossly normal and appropriate Assessment & Plan Assessment/Plan (1) Stented coronary artery: PLAN: Patient underwent angioplasty and stenting of the circumflex artery following a myocardial infarction. She does have residual papillary muscle dysfunction causing mitral regurgitation. The plan number to continue her on aspirin, ticagrelor, beta-maicol, high intensity statin. She will start cardiac rehabilitation when able. (2) Mitral regurgitation: PLAN: She does have moderately severe mitral regurgitation likely secondary to papillary muscle dysfunction, and mitral calcification. Will continue to treat the above with diuretic management and then repeat echocardiogram in a few weeks. If there is no improvement may need to consider mitral valve clip (3) Pulmonary hypertension: PLAN: She does have severe pulmonary hypertension likely secondary to left heart disease. We will continue with oral Lasix and also spironolactone. PLAN: Plan Above discussed with her son who says that she has very good social support and the plan will be to discharge her later today. Also discussed with hospitalist.
--- NOTE | 2023-02-27 10:58 | DCINST_ITS ---
Discharge Instructions Diet Discharge Diet: Low fat / Low cholesterol Activity Discharge Activity: Return to Normal Activity Weight Bearing Status: Weight bearing as tolerated Dressing / Incision Call your doctor if you observe: Fever of 101 or Higher, Shortness of breath, Dizziness, Swelling in the ankles and Chest pain Follow Up Care Test Results: Test results from this visit will be discussed in further detail at your follow- up appointment, if applicable. Discharge Plan Admission Admit Date/Time: 02/20/23 07:34 Primary Reason for Your Visit: STEMI Attending Provider: Gabriela Sutton Primary Care Provider: Eddie Hoffman Consulting Providers: Estelle Villegas; Theresa Marcial Instructions Patient Instructions: Heart Attack Dc Discharge Orders/Prescriptions Prescriptions: New aspirin 81 mg Tablet,Delayed Release (Dr/Ec) 81 mg PO DAILY@0800 Qty: 30 2RF furosemide 40 mg Tablet 40 mg PO BID Qty: 60 2RF atorvastatin 40 mg Tablet 40 mg PO QHS Qty: 30 2RF metoprolol succinate 100 mg Tablet Extended Release 24 Hr 100 mg PO DAILY Qty: 30 2RF spironolactone 25 mg Tablet 25 mg PO DAILY Qty: 30 2RF lisinopril 5 mg Tablet 5 mg PO DAILY Qty: 30 2RF Continued calcium carbonate 600 MG tablet 1,200 mg PO DAILY fenofibrate 160 MG tablet 160 mg PO DAILY cholecalciferol (vitamin D3) 1,000 UNIT tablet 1,000 unit PO DAILY adapdllexzkp-zfwv-akgxb acid 1 EACH tablet 1 ea PO DAILY omega 3-lrk-spb-fish oil 1 EACH capsule 2 cap PO DAILY Patient Comments: stop 5 days preop vit C,P-Bu-qpnkw-lutein-zeaxan 1 EACH capsule 1 ea PO DAILY Patient Comments: stop 5 days preop sennosides-docusate sodium 1 TABLET tablet 2 tab PO BID 0RF acetaminophen 500 MG tablet 1,000 mg PO Q8 0RF meloxicam 7.5 MG tablet 7.5 mg PO BID Qty: 30 1RF famotidine 20 MG tablet 20 mg PO DAILY Qty: 30 0RF tumeric 2 TAB PO Discontinued aspirin 325 MG tablet 81 mg PO DAILY@0800 Patient Comments: stop 5 days preop ibuprofen [Advil] 200 mg tablet 400 mg PO .qd Referrals / Follow Up: Eddie Hoffman MD [Primary Care Provider] - Within 2 Weeks Disposition Disposition (needs filled in before D/C Order can be placed): Home Health Service
--- NOTE | 2023-02-27 10:58 | DS.PCM_ITS ---
Providers Date of Admission: 02/20/23 Date of Discharge: 02/27/23 Primary Care Physician: Dr. Eddie Hoffman MD Consultations 02/20/23 07:38 Consult: Cardiology Stat Consulting Provider: Estelle Villegas Reason for Consult: STEMI EMERGENT Consult: Yes MD Notified: Yes Date Notified: 02/20/23 Time Notified: 07:35 Method of Notification: ED Physician Initiated Reason For Visit: STEMI Diagnosis Discharge Diagnosis (1) Stented coronary artery: Status: Acute Code(s): Z95.5 - Presence of coronary angioplasty implant and graft (2) Mitral regurgitation: Status: Acute Code(s): I34.0 - Nonrheumatic mitral (valve) insufficiency (3) Pulmonary hypertension: Status: Acute Code(s): I27.20 - Pulmonary hypertension, unspecified Plan #STEMI * s/p cardiac cath which occlusion of proximal left circumflex artry. She had thrombectomy and PCI with LIGIA. * 2D echo showed stage III diastolic dysfunction and basal to mid posterior and lateral severe hypokinesis * on aspirin and plavix, on metoprolol * on high intensity statin * cardiology on board. * feels very easily short of breath with mild ambulation. CTA chest yesterday was negative for PE, but showed bilateral pleural effusions. * lasix increased to 40mg bid. * 2D echo showed EF of 60% with pulmonary artery systolic pressure of 83mmHg, indicating severe pulmonary hypertension, and papillary muscle dysfunction noted, likely secondary to recent myocardial ischemia. * shortness of breath likely related to severe pulmonary hypertension. * * #Severe pulmonary hypertension * pulmonary artery hypertension as above. * continue diuresis with lasix and spironolactone * #Severe mitral valve regurgitation * likely due to left heart disease * will monitor * #Epistaxis * resolved. Was likely due dry nostrils from oxygen. On nasal saline spray. * #HFpEF * on IV lasix * monitor intake and output. Fluid restriction to 1500cc daily. * cardiology on board * #Afib * develop after Stemi * HR has improved. Did require some lidocaine and was given lidocaine drip during this admission on account of nonsustained V. tach. * cardiology on board. * #Hypokalemia:potassium is still 3.3 today. Will replace and trend. #transaminitis * resolving and trending downwards. * will monitor. Largely resolved. * Liver USG was normal. * #Probable CKD * baseline Cr from 2019 showed Cr of 1.36. * Cr is 1.32 today * will monitor * DVT prophylaxis: SCDs * Medications at Discharge Home Medications calcium carbonate 600 mg calcium (1,500 mg) tablet 1,200 mg PO DAILY supplement 03/02/19 cholecalciferol (vitamin D3) 25 mcg (1,000 unit) tablet 1,000 unit PO DAILY supplement 03/02/19 fenofibrate 160 mg tablet 160 mg PO DAILY cholesterol 03/02/19 multivitamin-ferrous fumarate-folic acid 18 mg-400 mcg tablet 1 ea PO DAILY supplement 03/02/19 omega 0-juo-fgq-fish oil 300 mg-1,000 mg capsule 2 cap PO DAILY supplement 03/02/19 vit C 250 mg-vit E 90 mg-zinc 40 mg-copper 1 cn-lajvhp-aasoti capsule 1 ea PO DAILY supplement 03/02/19 acetaminophen 500 mg tablet 1,000 mg (2 x 500 mg) PO Q8 pain 03/09/19 famotidine 20 mg tablet 20 mg PO DAILY #30 tabs 03/09/19 meloxicam 7.5 mg tablet 7.5 mg PO BID #30 tabs 03/09/19 sennosides 8.6 mg-docusate sodium 50 mg tablet 2 tab PO BID stool softner 03/09/19 tumeric PO [facility] 02/20/23 aspirin 81 mg tablet,delayed release 81 mg PO DAILY@0800 #30 tabs 02/27/23 atorvastatin 40 mg tablet 40 mg PO QHS #30 tabs 02/27/23 furosemide 40 mg tablet 40 mg PO BID #60 tabs 02/27/23 lisinopril 2.5 mg tablet 2.5 mg PO DAILY #30 tabs 02/27/23 metoprolol succinate 100 mg tablet,extended release 24 hr 100 mg PO DAILY #30 tabs 02/27/23 potassium chloride 20 mEq tablet,extended release(part/cryst) (Klor-Con M) 20 meq PO BID #60 tabs 02/27/23 spironolactone 25 mg tablet 25 mg PO DAILY #30 tabs 02/27/23 ticagrelor 90 mg tablet 90 mg PO BID #60 tabs 02/27/23 Hospital Course Operations None Procedures 2-D Echocardiogram and Cardiac catheterization Summary of Care Provided Minutes Spent on Discharge: 65 Hospital Course: Patient is an 87-year-old female with a past medical history as outlined. She was admitted through the ED on 02/20/2023 with a complaint of weakness and diaphoresis as well as generalized malaise for 2 weeks prior to admission. On admission in the ED, EKG showed evidence of lateral ST elevation IN. She was given aspirin and Brilinta as well as metoprolol in the ED and cardiology consulted. Patient also complained of frequent urination overnight and had gotten up to urinate a few hours prior to admission and felt sweaty and weak with associated nausea. Also in the ED she started having chest pressure. She had never had a stress test BEFORE. She was admitted and managed for ST elevation IN with EKG consistent with lateral ST elevation IN. STEMI alert was called and she was sent emergently to the cardiac blood and plasma laboratory assistant. She was found to have 100% proximal left circumflex artery occlusion with 2+ mitral valve regurgitation. She had immediate PCI with insertion of drug-eluting stents in the proximal left circumflex artery. Hospital course was complicated by nonsustained ventricular wide-complex tachycardia. Per cardiology she was started on lidocaine drip after being given a dose of IV lidocaine. She subsequently converted to normal sinus rhythm. She had 2D echo which showed EF of 60% with basal to mid posterior and lateral severe hypokinesis with stage III diastolic dysfunction and mild to moderate tricuspid insufficiency as well as moderate mitral valve insufficiency. Right ventricular systolic pressure was estimated to be 65 mmHg. Patient subsequently developed A-fib after the ST elevation IN. She was placed on metoprolol. There was concern for pneumonia so she was started on IV Zosyn but this was subsequently discontinued as there was no proof of pneumonia. Hospital course was complicated again by exertional shortness of breath which was not improving. She had a repeat 2D echo which showed moderately severe tricuspid valve insufficiency as well as pulmonary artery systolic pressure of 83 mm of Mercury Indicating Severe Pulmonary Hypertension. Her Lasix Dose Was Increased and She Was Also Placed on Metoprolol and Spironolactone. His Shortness of Breath Did Improve When She Was Discharged Home on 02/27/2023. Patient Was Noted to Have Her Blood Pressures Running in the 90s and Low 100 Systolic. This Was Discussed with Cardiology Who Indicated That If His Systolic Blood Pressure Was over 92 mmHg, It Was Safe for Her to Take Her Drugs. Her Lisinopril Was Cut down to 2.5 Mg Daily. She Was Therefore Discharged on 02/27/2023 on P.O. Lasix 40 Mg Twice Daily, p.o. metoprolol 100 mg daily, p.o. spironolactone 25 mg daily as well as p.o. lisinopril 2.5 mg daily. She was also discharged on p.o. atorvastatin 40 mg gianluca ly. She will be given a prescription for p.o. Brilinta 90 mg twice daily. Patient seen and examined prior to discharge. She felt well and had no complaints. Weight / BMI Weight Weight: 195 lb 12.328 oz Body Mass Index (BMI) 39.5 ABG / Lab / Microbiology Data 02/27/23 07:08 02/27/23 07:08 Laboratory: Laboratory Results - last 24 hr 02/27/23 07:08: WBC 9.6, RBC 5.01, Hgb 13.3, Hct 43.5, MCV 86.8, MCH 26.5 L, MCHC 30.6 L, RDW Std Deviation 45.9 H, RDW Coeff of [place] 14.6, Plt Count 291, MPV 10.2, Immature Gran % (Auto) 1.200 H, Neut % (Auto) 55.1, Lymph % (Auto) 29.9, [place] % (Auto) 9.1, Eos % (Auto) 4.0, Baso % (Auto) 0.7, Absolute Neuts (auto) 5.3, Absolute Lymphs (auto) 2.86, Nucleated RBC % 0, Sodium 140, Potassium 4.0, Chloride 105, Carbon Dioxide 33.0 H, Anion Gap 2 L, BUN 38 H, Creatinine 1.36 H, Estim Creat Clear Calc 41.62, Est GFR (MDRD) Af Amer 47 L, Est GFR (MDRD) Non-Af 39 L, BUN/Creatinine Ratio 27.9 H, Glucose 115 H, Calcium 9.9, Total Bilirubin 0.70, AST 42 H, ALT 35, Alkaline Phosphatase 55, Total Protein 6.6, Albumin 2.6 L, Globulin 4.0, Albumin/Globulin Ratio 0.6 L D/C Instructions Discharge Diet: Low fat / Low cholesterol Weight Bearing Status: Weight bearing as tolerated Call your doctor if you observe: Fever of 101 or Higher, Shortness of breath, Dizziness, Swelling in the ankles and Chest pain Meaningful Use Info Meaningful Use Diagnoses (Choose all that apply): AMI AMI/Post PCI/Angioplasty Aspirin given w/in 24hrs of arrival?: Yes ASA at discharge?: Yes Statins at discharge?: Yes Missael/ARB at discharge?: Yes Beta German at discharge?: Yes Done w/ Acute IN measure.: Yes Documented LVEF (%): 60 Discharge Plan Admission Admit Date/Time: 02/20/23 07:34 Primary Reason for Your Visit: STEMI Attending Provider: Gabriela Sutton Primary Care Provider: Eddie Hoffman Consulting Providers: Estelle Villegas; Theresa Marcial Instructions Patient Instructions: Heart Attack Dc Discharge Orders/Prescriptions Prescriptions: New aspirin 81 mg Tablet,Delayed Release (Dr/Ec) 81 mg PO DAILY@0800 Qty: 30 2RF furosemide 40 mg Tablet 40 mg PO BID Qty: 60 2RF atorvastatin 40 mg Tablet 40 mg PO QHS Qty: 30 2RF metoprolol succinate 100 mg Tablet Extended Release 24 Hr 100 mg PO DAILY Qty: 30 2RF spironolactone 25 mg Tablet 25 mg PO DAILY Qty: 30 2RF lisinopril 2.5 mg tablet 2.5 mg PO DAILY Qty: 30 2RF ticagrelor 90 mg tablet 90 mg PO BID Qty: 60 2RF potassium chloride [Klor-Con M20] 20 mEq tablet,ER particles/crystals 20 meq PO BID Qty: 60 1RF Continued calcium carbonate 600 MG tablet 1,200 mg PO DAILY fenofibrate 160 MG tablet 160 mg PO DAILY cholecalciferol (vitamin D3) 1,000 UNIT tablet 1,000 unit PO DAILY nuipvcszgdzb-tqpz-afxcq acid 1 EACH tablet 1 ea PO DAILY omega 6-trw-bvs-fish oil 1 EACH capsule 2 cap PO DAILY Patient Comments: stop 5 days preop vit C,R-Eu-ytuml-lutein-zeaxan 1 EACH capsule 1 ea PO DAILY Patient Comments: stop 5 days preop sennosides-docusate sodium 1 TABLET tablet 2 tab PO BID 0RF acetaminophen 500 MG tablet 1,000 mg PO Q8 0RF meloxicam 7.5 MG tablet 7.5 mg PO BID Qty: 30 1RF famotidine 20 MG tablet 20 mg PO DAILY Qty: 30 0RF tumeric 2 TAB PO Discontinued aspirin 325 MG tablet 81 mg PO DAILY@0800 Patient Comments: stop 5 days preop ibuprofen [Advil] 200 mg tablet 400 mg PO .qd Referrals / Follow Up: Eddie Hoffman MD [Primary Care Provider] - Within 2 Weeks Disposition Disposition (needs filled in before D/C Order can be placed): Home Health Servic e Charges/Coding Visit Charges Inpatient E&M: 55308 Disch Hosp >30min
[2023-02-27] MEDS: Lisinopril 5 MG Tablet PO (12:04)
[2023-02-27] MEDS: Spironolactone 25 MG Tablet PO (12:05)
[2023-02-27] MEDS: Furosemide 40 MG Tablet PO (12:05)
[2023-02-27] MEDS: Metoprolol(XL)Succ 100 MG Tablet PO (12:05)
== END 2023-02-27 15:42 | disposition home health service (06) | DRG 321 ==
LOC: ED 07:14 → ICU 07:44 → PCU 02-26 17:28
PROVIDERS: Admitting Provider Internal Medicine; Emergency Provider Emergency Medicine; PCP Family Medicine; Referring Provider Internal Medicine Cardiovascular Disease; Visit Provider Student in an Organized Health Care Education/Training Program
DX: I21.29 ST elevation (STEMI) myocardial infarction involving other sites (principal); I50.33 Acute on chronic diastolic (congestive) heart failure; I47.20 Ventricular tachycardia, unspecified; I13.0 Hypertensive heart and chronic kidney disease with heart failure and stage 1 through stage 4 chronic kidney disease, or unspecified chronic kidney disease; R44.3 Hallucinations, unspecified; I27.20 Pulmonary hypertension, unspecified; I48.91 Unspecified atrial fibrillation; N18.9 Chronic kidney disease, unspecified; I08.1 Rheumatic disorders of both mitral and tricuspid valves; E78.5 Hyperlipidemia, unspecified; I25.10 Atherosclerotic heart disease of native coronary artery without angina pectoris; E87.6 Hypokalemia; Z79.82 Long term (current) use of aspirin; T42.6X5A Adverse effect of other antiepileptic and sedative-hypnotic drugs, initial encounter; Z79.899 Other long term (current) drug therapy; G89.29 Other chronic pain
CPT/HCPCS: 36415; 36600; 70450; 71045; 71275; 76705; 80048; 80053; 80061; 82803; 83735; 83880; 84145; 84443; 84484; 85025; 85027; 85347; 85610; 85730; 92941; 92973; 93005; 93306; 93308; 93458; 94002; 94003; 94640; 94668; 94762; 97162; 97166; 97530; 97535; 97802; 99282; 99285; C1757; C1769; J7030; J7040; J7050; Q9957; Q9967; 90662; A4216; C1725; C1874; C1887; C1894; C8929; C9606; J1940; J2405; J3475; J3490

== ENCOUNTER 2023-02-28 22:25 | Inpatient (IN) | payer MEDICARE, SELFPAY ==
[2023-02-28 22:26] VITALS: BP 131/87; PULSE 81; RESP 22; TEMP 36.1; O2SAT 97
--- NOTE | 2023-02-28 22:30 | RAD_ITS ---
STUDY: X-RAY CHEST REASON FOR EXAM: Female, 87 years old. chest pain TECHNIQUE: Single AP portable view of the chest. COMPARISON: 02/21/2023 FINDINGS: Alveolar opacities throughout both lungs consistent with bilateral pneumonia, pulmonary edema, or ARDS. There is no demonstrated pleural abnormality. Normal size heart. Normal mediastinum and michel. Normal visualized pulmonary arteries. Normal visualized aortic arch and descending thoracic aorta. There is a dextroscoliosis of the thoracic spine. Normal visualized ribs, clavicles, and shoulders. There is no demonstrated abnormality of the visualized soft tissue structures of the upper abdomen. RAD/Chest 1 View (Portable) IMPRESSION: Bilateral pneumonia, pulmonary edema, or ARDS. Electronically Signed: Marcial Bridges MD at 23:10 EDT ,
[2023-02-28 22:35] VITALS: BP 131/87; PULSE 82; RESP 16; TEMP 36.1; O2SAT 95
[2023-02-28 22:43] VITALS: O2SAT 97; BMI 40.9
[2023-02-28 22:43] LABS: Absolute Lymphocyte Count 5.21 X10^3/uL (0.83-4.51); Absolute Neutrophil Count 8.8 X10^3/uL (2.0-7.7); Basophil# 0.11 X10^3/uL; Basophil% 0.7 % (0-1); Eosinophil# 0.36 X10^3/uL; Eosinophils% 2.3 % (0-5); Hematocrit 50.4 % (37-47); Hemoglobin 15.1 g/dL (12.0-15.0); Lymphocyte # 5.21 X10^3/ul (0.83-4.51); Lymphocyte % 33.1 % (19-41); Mean Corpuscular Hgb 26.3 pg (27.0-32.0); Mean Corpuscular Volume 87.7 fL (81-99); Mean Platelet Vol. 10.4 fl (6.2-12.0); Monocyte# 1.08 X10^3/uL; Monocyte% 6.9 % (0-10); NRBC Flagged by Analyzer 0 % (0-5); Neutrophil # 8.75 X10^3/uL (2.7-7.7); Neutrophil % 55.4 % (47-70); POSITIVE DIFFERENTIAL YES; Platelet Count 494 K/mm3 (150-450); RBC Distribution Width CV 14.6 % (11.6-14.6); RBC Distribution Width SD 46.4 fl (35.1-43.9); Red Blood Count 5.75 M/mm3 (4.2-5.4); White Blood Count 15.8 K/mm3 (4.4-11.0)
[2023-02-28 22:44] LABS: Differential Indicated SCAN CRITERIA MET
--- NOTE | 2023-02-28 22:49 | PCM.HP.STD ---
HPI - General General Date of Admission: 02/28/23 Date of Service: 02/28/23 Chief Complaint: Dyspnea, severe, respiratory distress. HPI Narrative The patient is an 87 y/o F w/ PMHx: Hx PE, GERD, HLD, CKD stage III unclear subtype, recent presentation 02/20/23 with lateral STEMI s/p aspiration Thrombectomy and DEC to Proximal LCX (Resolute larisa 3.5 X 15 mm) with admission complicated by initial concerns for PNA eventually ruled out, HFpEF, PAF w/ RVR and NSVT, transaminitis with normal liver US with catheterization/ECHO evidence during presentation of severe pulmonary HTN and severe mitral valve regurgitation discharged on 02/27/23 who now re-presents to the [facility] ED on 02/28/23 with history of complaints of mild dyspnea during the day however significantly worsened just prior to ED presentation per EMS call per family with patient noted to be significantly hypoxic placed immediately on BiPAP with family concern for volume overload with transition to the ED for evaluation. Family also reported that she had been having dyspepsia and also noted band-like sensation around the upper portion of her stomach. Work-up in the ED included T97, heart rate 81, BP 131/87, respiratory rate 22, presenting per EMS on BiPAP, currently 97% with increased work of breathing, accessory muscle usage, obvious crackles and rales, CBC with WBC 15.8, hemoglobin 15.1, MCV 87.7, platelet 494 with left shift and lymphocytosis, BMP with BUN/creatinine 37/1.87, glucose 271, calcium 10.4, troponin 5435 with most recent prior to this from recent admission with STEMI 02/20/2023 troponin 973, EKG in the ED status post recent lateral STEMI with initial concern for possible in-stent stenosis with recurrent STEMI however recent admission EKGs and discharge EKG as well as presentation EKG reviewed per cardiology and new acute STEMI ruled out, chest x-ray with significant flash pulmonary edema. In the ED patient continued on BiPAP given concern for flash pulmonary edema and administered Lasix 40 mg IV x1 as well as full-strength aspirin therapy. Patient's son who is a physician and present did mention she missed 1 dose of her Brilinta secondary to the pharmacy being closed when they had discharged otherwise she has been compliant with all her medications. As noted EKGs reviewed with cardiology given initial concern per ED physician and also contacted Dr. Baltazar again given significantly elevated troponin 5435 to assure no immediate cardiac catheterization needs. Discussed with ED physician and patient will be initiated also on heparin drip. [facility] Medical History (Updated 02/28/23 @ 23:[address] Leyla Pastor MD) Arteriosclerosis of coronary artery in patient with history of myocardial infarction (02/20/23) Atrial fibrillation CKD (chronic kidney disease), stage III GERD (gastroesophageal reflux disease) History of pulmonary embolism HLD (hyperlipidemia) Pulmonary hypertension STEMI (ST elevation myocardial infarction) (02/20/23) Sustained ventricular tachycardia Home Medications calcium carbonate 600 mg calcium (1,500 mg) tablet 1,200 mg PO DAILY supplement 03/02/19 [History Last Taken Unknown] cholecalciferol (vitamin D3) 25 mcg (1,000 unit) tablet 1,000 unit PO DAILY supplement 03/02/19 [History Last Taken Unknown] fenofibrate 160 mg tablet 160 mg PO DAILY cholesterol 03/02/19 [History Last Taken Unknown] multivitamin-ferrous fumarate-folic acid 18 mg-400 mcg tablet 1 ea PO DAILY supplement 03/02/19 [History Last Taken Unknown] omega 8-qck-dvx-fish oil 300 mg-1,000 mg capsule 2 cap PO DAILY supplement 03/02/19 [History Last Taken Unknown] vit C 250 mg-vit E 90 mg-zinc 40 mg-copper 1 ro-vvdwgm-nbfwtf capsule 1 ea PO DAILY supplement 03/02/19 [History Last Taken Unknown] acetaminophen 500 mg tablet 1,000 mg (2 x 500 mg) PO Q8 pain 03/09/19 [Rx Last Taken Unknown] famotidine 20 mg tablet 20 mg PO DAILY #30 tabs 03/09/19 [Rx Last Taken Unknown] tumeric PO 1XD general health 02/20/23 [History Last Taken Unknown] aspirin 81 mg tablet,delayed release 81 mg PO DAILY@0800 #30 tabs 02/27/23 [Rx Last Taken Unknown] atorvastatin 40 mg tablet 40 mg PO QHS #30 tabs 02/27/23 [Rx Last Taken Unknown] furosemide 40 mg tablet 40 mg PO BID #60 tabs 02/27/23 [Rx Last Taken Unknown] lisinopril 2.5 mg tablet 2.5 mg PO DAILY #30 tabs 02/27/23 [Rx Last Taken Unknown] metoprolol succinate 100 mg tablet,extended release 24 hr 100 mg PO DAILY #30 tabs 02/27/23 [Rx Last Taken Unknown] potassium chloride 20 mEq tablet,extended release(part/cryst) (Klor-Con M) 20 meq PO BID #60 tabs 02/27/23 [Rx Last Taken Unknown] spironolactone 25 mg tablet 25 mg PO DAILY #30 tabs 02/27/23 [Rx Last Taken Unknown] ticagrelor 90 mg tablet 90 mg PO BID #60 tabs 02/27/23 [Rx Last Taken Unknown] Allergy/AdvReac Type Severity Reaction Status Date / Time gabapentin Allergy Other Verified 02/20/23 07:33 hydromorphone [From Dilaudid] Allergy Vomiting Verified 02/20/23 07:33 morphine Allergy Vomiting Verified 02/20/23 07:33 paregoric Allergy Vomiting Verified 02/20/23 07:33 Family History (Updated 02/28/23 @ 23:[address] Leyla Pastor MD) Mother Pulmonary embolism from massive PE following operative intervention. Father No problems noted. Surgical History (Updated 02/28/23 @ 23:[address] eLyla Pastor MD) History of back surgery History of carpal tunnel release of both wrists History of hip replacement History of knee surgery Stented coronary artery (02/20/23) Social History (Updated 02/28/23 @ 23:[address] Leyla Pastor MD) household members: family Smoking Status: Never smoker alcohol intake: never substance use type: does not use ROS ROS Narrative Admission Review of Systems: CONSTITUTIONAL: No weight loss, fever, chills, + weakness or fatigue. HEENT: Eyes: No visual loss, blurred vision, double vision or yellow sclerae. Ears, Nose, Throat: No hearing loss, sneezing, congestion, runny nose or sore throat. SKIN: No rash or itching, lesions, wounds. CARDIOVASCULAR: + Orthopnea, band-like sensation around her stomach. No chest pain, chest pressure or chest discomfort, palpitations, edema, syncopal events. RESPIRATORY: + shortness of breath. No cough or sputum, wheezing, hemoptysis. GASTROINTESTINAL: + Dyspepsia, band-like sensation around her stomach. No anorexia, nausea, vomiting or diarrhea, abdominal pain, melena, BRBPR. GENITOURINARY: No dysuria, frequency, urgency or retention. NEUROLOGICAL: No headache, dizziness, syncope, paralysis, ataxia, numbness or tingling in the extremities, focal weakness, change in bowel or bladder control, seizure. MUSCULOSKELETAL: + muscle, back pain, joint pain or stiffness. HEMATOLOGIC: No anemia. + Easy bleeding or bruising. LYMPHATICS: No enlarged nodes. No history of splenectomy. PSYCHIATRIC: No history of depression or anxiety. ENDOCRINOLOGIC: No reports of sweating, cold or heat intolerance. No polyuria or polydipsia. ALLERGIES: No history of asthma, hives, eczema or rhinitis. Vital Signs Vital Signs Vital Signs: 02/28/23 22:26 02/28/23 22:35 02/28/23 22:43 Temperature 97.0 F L 97.0 F L Temperature Source Temporal Temporal Pulse Rate 81 82 Respiratory Rate 22 H 16 Blood Pressure 131/87 H 131/87 H Blood Pressure Mean 101 101 Pulse Ox 97 95 97 Oxygen Delivery Method Bi-pap Bi-pap Bi-pap Weight Weight: 202 lb 13.204 oz Body Mass Index (BMI) 40.9 Physical Exam Narrative Physical Examination: General: Patient fatigued, mildly lethargic, awake, alert, oriented to self and events ongoing, cooperative but currently in respiratory distress, BiPAP being placed. Skin: Normal color, normal turgor, no icterus, no cyanosis except staged ecchymoses likely with recent presentation with lab draws. HEENT: AT/NC, EOMI, PERRLA, mildly dry MM, no carotid bruits, + JVD noted, BiPAP being placed. Lungs: Diminished, greater bases, increased respiratory rate and increased effort, evidence of distress, BiPAP being placed, crackles and rales at the bases, no obvious wheezing. Heart: Regular rate and rhythm; no gallop, rub audible, SM. Abdomen: Soft, morbidly obese, NTTP, distant normal BS, difficult to discern distention and HSM given habitus. Extremities: No cyanosis, no clubbing, no marked peripheral edema. Neurological: Patient fatigued, mildly lethargic, awake, alert, oriented to self and events ongoing, cooperative but currently in respiratory distress, BiPAP being placed, cognitive function not baseline intact but more so secondary to respiratory distress; pupils equally reactive to light and accommodation, cranial nerves grossly normal, moving all 4 extremities, no focal deficits, strength severely globally decreased secondary to acute presentation. Psychiatric: Affect appears fatigued, respiratory distress evident, BIPAP being placed, no acute evidence of depressive or anxiety feelings. Results Lab / Micro Data 02/28/23 22:30 02/28/23 22:30 Labs: Laboratory Results - last 24 hr 02/28/23 22:30: WBC 15.8 H, RBC 5.75 H, Hgb 15.1 H, Hct 50.4 H, MCV 87.7, MCH 26.3 L, MCHC 30.0 L, RDW Std Deviation 46.4 H, RDW Coeff of [place] 14.6, Plt Count 494 H, MPV 10.4, Immature Gran % (Auto) 1.600 H, Neut % (Auto) 55.4, Lymph % (Auto) 33.1, [place] % (Auto) 6.9, Eos % (Auto) 2.3, Baso % (Auto) 0.7, Absolute Neuts (auto) 8.8 H, Absolute Lymphs (auto) 5.21 H, Nucleated RBC % 0 Assessment & Plan Assessment/Plan (1) Flash pulmonary edema: PLAN: Plan The patient is an 87 y/o F w/ PMHx: Hx PE, GERD, HLD, CKD stage III unclear subtype, recent presentation 02/20/23 with lateral STEMI s/p aspiration Thrombectomy and DEC to Proximal LCX (Resolute larisa 3.5 X 15 mm) with admission complicated by initial concerns for PNA eventually ruled out, HFpEF, PAF w/ RVR and NSVT, transaminitis with normal liver US with catheterization/ECHO evidence during presentation of severe pulmonary HTN and severe mitral valve regurgitation discharged on 02/27/23 who now re-presents to the [facility] ED on 02/28/23 with history of complaints of mild dyspnea during the day however significantly worsened just prior to ED presentation per EMS call per family with patient noted to be significantly hypoxic placed immediately on BiPAP with family concern for volume overload with transition to the ED for evaluation. #1. Acute Encephalopathy secondary to Acute Respiratory Distress/Acute Hypoxic Respiratory Failure secondary to Acute Decompensated Diastolic CHF with flash pulmonary edema complicated underlying severe pulmonary hypertension and severe mitral valve regurgitation: Patient administered IV lasix in the ED, will admit to the ICU, maintain on cardiac telemetry, obtain cardiac enzyme series, obtain serial EKGs, continue IV lasix diuresis, monitor I/Os, maintain on intake restriction, continue medical therapy, will obtain magnesium level. Recent ECHO w/ EF 60% with pulmonary artery systolic pressure of 83mmHg, indicating severe pulmonary hypertension, and papillary muscle dysfunction noted, likely secondary to recent myocardial ischemia but given notable presentation will request repeat ECHO. Cardiology consulted, pending. #2. Acute Renal Insufficiency on Chronic Kidney Disease Stage III, unclear subtype: Admission BUN/Cr 41/1.87, baseline renal function primarily 1.3-1.6 during recent presentation but at discharge was 1.32 of note, repeat BMP in AM. If renal function rises further will need to hold nephrotoxic regimen as able especially given need for diuresis as noted. #3. Leukocytosis: CBC upon presentation with leukocytosis with left shift, afebrile, recent presentation with initial concerns for pneumonia however was ruled out, will plan repeat chest x-ray in a.m. following overnight diuresis and will obtain procalcitonin level. If significantly higher any obvious evidence of infiltrates following diuresis will initiate antibiotic therapy and pursue pneumonia evaluation further. #4. Recent Lateral STEMI with significantly elevated cardiac troponin: s/p aspiration Thrombectomy and DEC to Proximal LCX (Resolute larisa 3.5 X 15 mm), will continue aspirin, Brilinta, statin, metoprolol, low-dose lisinopril. As noted patient with significantly elevated cardiac troponin with recent STEMI, reviewed with cardiology and at this time we will continue heparin drip with bolus. #5. Hypertension: Continue home regimen including IV Lasix with temporary hold on oral regimen, spironolactone, metoprolol, low-dose lisinopril with prioritization at this time of IV Lasix, PRN hydralazine. #6. Hyperlipidemia: We will continue patient home statin and fenofibrate regimen. #7. PAF: Recent diagnosis during prior presentation occurring just around her STEMI with decision to continue metoprolol but no chronic anticoagulant therapy during prior presentation. Currently as noted being maintained on a heparin drip given significantly elevated troponin in the setting of recent STEMI with flash pulmonary edema. #8. History of VTE: Patient with prior PE, not on chronic anticoagulation, currently on heparin drip given troponin level as noted. #9. GERD: We will maintain on home famotidine regimen. #10. DVT prophylaxis: Maintain on heparin drip. #12. CODE status: DNR-CCA, no intubation status. HCPOA her son, LW in place. Charges/Coding Visit Charges Inpatient E&M: 75465 Init Hosp L3
[2023-02-28 22:50] VITALS: PULSE 93; RESP 12; RESP 32; O2SAT 96; O2SAT 97
[2023-02-28] MEDS: Furosemide 40 MG/4 ML Vial IV (22:55)
--- NOTE | 2023-02-28 22:55 | ED.VIS.DYS ---
HPI History of Present Illness Chief Complaint: Shortness of Breath Narrative Narrative: I was presented with a prehospital EKG which showed an inferior STEMI with reciprocal changes, I activated the STEMI team. Patient arrived to the ED, she was quite hypoxic, in severe respiratory distress. Since arriving I learned that she had a STEMI about a week ago and received 1 stent. She was found to have mitral regurgitation likely secondary to cordae dysfunction, I cannot get a history from the patient due to her severe respiratory distress, both son and daughter at the bedside. [facility] Medical History Arteriosclerosis of coronary artery in patient with history of myocardial infarction (02/20/23) Home Medications calcium carbonate 600 mg calcium (1,500 mg) tablet 1,200 mg PO DAILY supplement 03/02/19 [History Last Taken Unknown] cholecalciferol (vitamin D3) 25 mcg (1,000 unit) tablet 1,000 unit PO DAILY supplement 03/02/19 [History Last Taken Unknown] fenofibrate 160 mg tablet 160 mg PO DAILY cholesterol 03/02/19 [History Last Taken Unknown] multivitamin-ferrous fumarate-folic acid 18 mg-400 mcg tablet 1 ea PO DAILY supplement 03/02/19 [History Last Taken Unknown] omega 5-qcj-ygc-fish oil 300 mg-1,000 mg capsule 2 cap PO DAILY supplement 03/02/19 [History Last Taken Unknown] vit C 250 mg-vit E 90 mg-zinc 40 mg-copper 1 qz-heuxdl-odrvux capsule 1 ea PO DAILY supplement 03/02/19 [History Last Taken Unknown] acetaminophen 500 mg tablet 1,000 mg (2 x 500 mg) PO Q8 pain 03/09/19 [Rx Last Taken Unknown] famotidine 20 mg tablet 20 mg PO DAILY #30 tabs 03/09/19 [Rx Last Taken Unknown] tumeric PO 1XD general health 02/20/23 [History Last Taken Unknown] aspirin 81 mg tablet,delayed release 81 mg PO DAILY@0800 #30 tabs 02/27/23 [Rx Last Taken Unknown] atorvastatin 40 mg tablet 40 mg PO QHS #30 tabs 02/27/23 [Rx Last Taken Unknown] furosemide 40 mg tablet 40 mg PO BID #60 tabs 02/27/23 [Rx Last Taken Unknown] lisinopril 2.5 mg tablet 2.5 mg PO DAILY #30 tabs 02/27/23 [Rx Last Taken Unknown] metoprolol succinate 100 mg tablet,extended release 24 hr 100 mg PO DAILY #30 tabs 02/27/23 [Rx Last Taken Unknown] potassium chloride 20 mEq tablet,extended release(part/cryst) (Klor-Con M) 20 meq PO BID #60 tabs 02/27/23 [Rx Last Taken Unknown] spironolactone 25 mg tablet 25 mg PO DAILY #30 tabs 02/27/23 [Rx Last Taken Unknown] ticagrelor 90 mg tablet 90 mg PO BID #60 tabs 02/27/23 [Rx Last Taken Unknown] Allergy/AdvReac Type Severity Reaction Status Date / Time gabapentin Allergy Other Verified 02/20/23 07:33 hydromorphone [From Dilaudid] Allergy Vomiting Verified 02/20/23 07:33 morphine Allergy Vomiting Verified 02/20/23 07:33 paregoric Allergy Vomiting Verified 02/20/23 07:33 Surgical History History of back surgery History of knee surgery Stented coronary artery (02/20/23) Social History Smoking Status: Never smoker ROS ROS ED Review of Systems ROS Unobtainable: other Details: Severe respiratory distress on BiPAP EXAM Physical Exam Narrative Exam Narrative: Physical exam General: Patient appears in significant distress. Head: Normocephalic, Atraumatic Eyes: Conjunctiva not pale ENT: Dry mucous membranes Neck: Supple, Nontender, No lymphadenopathy she cannot tolerate laying flat, no obvious JVD Cardiovascular: To auscultation however I do not appreciate a significant murmur. Respiratory: Diminished bilateral breath sounds with some rhonchi. Abdomen: Soft, Nontender, Nondistended Back: Nontender, Normal Inspection. Negative for: CVA tenderness Extremities: Nontender, at this time she only has trace bilateral edema Skin: Normal color, No rash Const Vital Signs: 02/28/23 22:26 02/28/23 22:35 02/28/23 22:43 Temperature 97.0 F L 97.0 F L Temperature Source Temporal Temporal Pulse Rate 81 82 Respiratory Rate 22 H 16 Respiratory Effort Blood Pressure 131/87 H 131/87 H Blood Pressure Mean 101 101 Pulse Ox 97 95 97 Oxygen Delivery Method Bi-pap Bi-pap Bi-pap Fraction of Inspired Oxygen (FIO2) 02/28/23 22:50 Temperature Temperature Source Pulse Rate Respiratory Rate Respiratory Effort Short of Breath Blood Pressure Blood Pressure Mean Pulse Ox Oxygen Delivery Method Bi-pap Fraction of Inspired Oxygen (FIO2) 50 MDM MDM MDM Narrative Medical decision making narrative: Chest x-ray interpretation: Appears pulmonary infiltrate pattern versus CHF pattern mostly on the right this is significantly changed from last x-ray. This is an interpreted by me EKG: Sinus rhythm with a rate of 96. Normal PA. QTc is 459. There is inferior ST elevation in 2 3 and aVF with precordial reciprocal's. In reviewing the prior EKGs from post catheterization they are relatively similar. ED course: I discussed the patient with Dr. Baltazar from warehouse worker 2nd shift, 4 EKGs were transmitted to him securely, it is his belief that at this time patient does not meet criteria for catheterization. She has CHF, I am wondering about a possible chordae rupture, regardless I talked to family she is DNR CCA at this time, we will admit to our hospital get a echo in the morning in the meantime we will start diuresing. After the BiPAP placement patient seems to have clinically improved. Lab Data Labs: Laboratory Results - last 24 hr 02/28/23 22:30 WBC 15.8 H RBC 5.75 H Hgb 15.1 H Hct 50.4 H MCV 87.7 MCH 26.3 L MCHC 30.0 L RDW Std Deviation 46.4 H RDW Coeff of [place] 14.6 Plt Count 494 H MPV 10.4 Immature Gran % (Auto) 1.600 H Neut % (Auto) 55.4 Lymph % (Auto) 33.1 [place] % (Auto) 6.9 Eos % (Auto) 2.3 Baso % (Auto) 0.7 Absolute Neuts (auto) 8.8 H Absolute Lymphs (auto) 5.21 H Nucleated RBC % 0 Critical Care Time Critical Care Time: Yes Critical care time (excluding procedures): 30-74 minutes, Including time spent:, Discussing w/Patient &/or Family/Professor Of Medicine, Discussing w/Consultants, Arranging Admission or Transfer, Performing Direct Patient Care at Bedside and - (40 minutes) Discharge Plan Triage Chief Complaint: Shortness of Breath ED Provider: Shaheen Duggan Dx/Rx/DC Orders Clinical Impression: Respiratory failure, CAD (coronary artery disease), CHF (congestive heart failure), Hypoxia Primary Care Provider: Eddie Hoffman Disposition Disposition: Acute Care Hospital [facility]
[2023-02-28 23:03] VITALS: BP 119/74; PULSE 86; RESP 22; O2SAT 97
[2023-02-28 23:08] LABS: Anion Gap 7 (5-15); BUN 37 mg/dL (7-18); BUN/Creat Ratio 19.8 RATIO (10-20); Calcium,Total 10.4 mg/dL (8.5-10.1); Chloride 101 mmol/L (98-107); Creatinine, Serum 1.87 mg/dL (0.55-1.02); EST Glomerular Filtration Rate 27 mL/min (>60); Est Glom Filt Rate - Afr Amer 33 mL/min (>60); Estimated Creatinine Clearance 31.36 ml/min; Glucose 271 mg/dL (74-106); Potassium 4.4 mmol/L (3.5-5.1); Sodium Level 137 mmol/L (136-145); Troponin-I HS (w/2H Reflex) 5435 pg/mL (3.0-54.0)
--- NOTE | 2023-02-28 23:15 | ED.RN ---
2315: Report called to Shanae BALLARD on ICU.
[2023-02-28 23:18] LABS: Magnesium 2.6 mg/dL (1.6-2.6)
[2023-02-28 23:28] VITALS: BP 104/68; PULSE 85; RESP 27; O2SAT 95
[2023-02-28 23:37] LABS: Differential Comment SCANNED
[2023-03-01] VITALS (25 sets, daily range): BP systolic 62–105; BP diastolic 42–78; PULSE 69–83; RESP 12–24; TEMP 36.2–36.5; O2SAT 93–99; BMI 38.9
[2023-03-01 00:07] LABS: Procalcitonin 0.13 ng/mL (0.00-0.09)
[2023-03-01 00:41] LABS: Reflex Troponin-HS? (from REC) Y
[2023-03-01 00:51] LABS: Partial Thromboplast Time 21.6 Seconds (24.1-36.2)
[2023-03-01 01:04] LABS: Troponin-I HS 4298 pg/mL (3.0-54.0)
[2023-03-01] MEDS: Heparin Injection (Vial) 5,000 UNIT/ML VIAL 7500 UNIT IV (01:05)
[2023-03-01] MEDS: HEPARIN/D5w 25,000 UNITS 25,000 UNITS/250 ML IV.SOLN. 14 UNITS CONT INF (01:06)
[2023-03-01 04:39] LABS: Absolute Lymphocyte Count 3.33 X10^3/uL (0.83-4.51); Absolute Neutrophil Count 8.8 X10^3/uL (2.0-7.7); Basophil# 0.07 X10^3/uL; Basophil% 0.5 % (0-1); Eosinophil# 0.13 X10^3/uL; Hematocrit 40.8 % (37-47); Hemoglobin 12.5 g/dL (12.0-15.0); Lymphocyte # 3.33 X10^3/ul (0.83-4.51); Lymphocyte % 24.5 % (19-41); Mean Corp Hgb Conc 30.6 g/dL (32-36); Mean Corpuscular Hgb 26.2 pg (27.0-32.0); Mean Corpuscular Volume 85.5 fL (81-99); Mean Platelet Vol. 10.4 fl (6.2-12.0); Monocyte# 1.06 X10^3/uL; Monocyte% 7.8 % (0-10); NRBC Flagged by Analyzer 0 % (0-5); Neutrophil # 8.82 X10^3/uL (2.7-7.7); Neutrophil % 64.9 % (47-70); Platelet Count 328 K/mm3 (150-450); RBC Distribution Width CV 14.5 % (11.6-14.6); RBC Distribution Width SD 44.4 fl (35.1-43.9); Red Blood Count 4.77 M/mm3 (4.2-5.4); White Blood Count 13.6 K/mm3 (4.4-11.0)
[2023-03-01 05:22] LABS: Troponin-I HS 4156 pg/mL (3.0-54.0)
[2023-03-01 05:35] LABS: ALB/GLOB Ratio 0.6 RATIO (0.9-2.4); AST(SGOT) 28 U/L (15-37); Alanine Aminotransfer ALT/SGPT 28 U/L (13-56); Albumin, Serum 2.4 g/dL (3.2-5.0); Alkaline Phosphatase 59 U/L (45-117); Anion Gap 7 (5-15); BUN 37 mg/dL (7-18); BUN/Creat Ratio 22.8 RATIO (10-20); Calcium,Total 9.5 mg/dL (8.5-10.1); Chloride 107 mmol/L (98-107); Creatinine, Serum 1.62 mg/dL (0.55-1.02); EST Glomerular Filtration Rate 32 mL/min (>60); Est Glom Filt Rate - Afr Amer 39 mL/min (>60); Estimated Creatinine Clearance 34.47 ml/min; Globulin 3.7 g/dL (2.2-4.2); Glucose 114 mg/dL (74-106); Protein, Total 6.1 g/dL (6.4-8.2); Sodium Level 143 mmol/L (136-145)
--- NOTE | 2023-03-01 05:55 | RAD_ITS ---
HISTORY: Dyspnea. TECHNIQUE: XR Chest 1 View. COMPARISON: Prior day. FINDINGS: LINES/TUBES: None. CARDIOMEDIASTINAL BORDERS: Stable. LUNGS: Decreased bilateral interstitial opacities with right greater than left bibasilar opacities again seen. PLEURA: Probable trace pleural effusions. RAD/Chest 1 View (Portable) IMPRESSION: Decreased pulmonary edema. Bibasilar atelectasis or pneumonia, mildly decreased on the right. Electronically Signed: Martha Acuna MD at 9:54 EDT ,
[2023-03-01] MEDS: Acetaminophen 500 MG Tablet 1000 MG PO (06:30)
--- NOTE | 2023-03-01 07:35 | PN.HOSP_ITS ---
Reason for Visit Reason for Visit: Diagnoses Acute pulmonary edema (02/28/23) Subjective Subjective Patient feeling better than she did on initial presentation, breathing improving, denies any chest pain Objective Data Objective Data Vital Signs: Vital Signs Temp Pulse Resp BP Pulse Ox O2 Del Method O2 Flow Rate 97.4 F L 73 19 H 88/78 L 95 Nasal Cannula 4 03/01/23 03:00 03/01/23 07:00 03/01/23 07:00 03/01/23 07:00 03/01/23 07:00 03/01/23 07:00 03/01/23 07:00 FiO2 30 03/01/23 06:00 Oxygen Flow Rate (L/min) 4 Oxygen Delivery Method Nasal Cannula Weight: 87.6 kg Body Mass Index (BMI) 38.9 Intake & Output: Intake and Output for Last 24 Hours 02/27/23 02/28/23 03/01/23 23:59 23:59 23:59 Intake Total 89 / 89 Output Total 550 / 550 Balance -461 / -461 Lab / Micro Data 03/01/23 04:30 03/01/23 04:30 Labs: Laboratory Results - last 24 hr 02/28/23 22:30: WBC 15.8 H, RBC 5.75 H, Hgb 15.1 H, Hct 50.4 H, MCV 87.7, MCH 26.3 L, MCHC 30.0 L, RDW Std Deviation 46.4 H, RDW Coeff of Maliha 14.6, Plt Count 494 H, MPV 10.4, Immature Gran % (Auto) 1.600 H, Neut % (Auto) 55.4, Lymph % (Auto) 33.1, [place] % (Auto) 6.9, Eos % (Auto) 2.3, Baso % (Auto) 0.7, Absolute Neuts (auto) 8.8 H, Absolute Lymphs (auto) 5.21 H, Nucleated RBC % 0, Differential Comment SCANNED, Sodium 137, Potassium 4.4, Chloride 101, Carbon Dioxide 29.0, Anion Gap 7, BUN 37 H, Creatinine 1.87 H, Estim Creat Clear Calc 31.36, Est GFR (MDRD) Af Amer 33 L, Est GFR (MDRD) Non-Af 27 L, BUN/Creatinine Ratio 19.8, Glucose 271 H, Calcium 10.4 H, Magnesium 2.6, Troponin I High Sens 5435 H* 02/28/23 23:25: Procalcitonin 0.13 H 03/01/23 00:35: APTT 21.6 L, Troponin I High Sens 4298 H* 03/01/23 04:30: WBC 13.6 H, RBC 4.77, Hgb 12.5, Hct 40.8, MCV 85.5, MCH 26.2 L, MCHC 30.6 L, RDW Std Deviation 44.4 H, RDW Coeff of [place] 14.5, Plt Count 328, MPV 10.4, Immature Gran % (Auto) 1.300 H, Neut % (Auto) 64.9, Lymph % (Auto) 24.5, [place] % (Auto) 7.8, Eos % (Auto) 1.0, Baso % (Auto) 0.5, Absolute Neuts (auto) 8.8 H, Absolute Lymphs (auto) 3.33, Nucleated RBC % 0, Sodium 143, Potassium 4.0, Chloride 107, Carbon Dioxide 29.0, Anion Gap 7, BUN 37 H, Creatinine 1.62 H , Estim Creat Clear Calc 34.47, Est GFR (MDRD) Af Amer 39 L, Est GFR (MDRD) Non- Af 32 L, BUN/Creatinine Ratio 22.8 H, Glucose 114 H, Calcium 9.5, Total Bilirubin 0.80, AST 28, ALT 28, Alkaline Phosphatase 59, Troponin I High Sens 4156 H*, Total Protein 6.1 L, Albumin 2.4 L, Globulin 3.7, Albumin/Globulin Ratio 0.6 L Radiography Diagnostic Testing: Radiology Impression Chest X-Ray 02/28/23 22:30 IMPRESSION: Bilateral pneumonia, pulmonary edema, or ARDS. Electronically Signed: Marcial Bridges MD at 23:10 EDT , Physical Exam Narrative General: Alert, no acute distress HEENT: Atraumatic, normocephalic Eyes: Anicteric, normal conjunctiva, extraocular movements grossly intact Neck: Supple Respiratory: Crackles at the bases Cardiovascular: Regular rate GI: Soft, nontender, nondistended Extremities: No edema, legs slightly sore on palpation Musculoskeletal: Moving all extremities Neuro: No overt focal neurological deficits Skin: No rashes appreciated Psych: Cooperative Assessment & Plan Assessment/Plan (1) Flash pulmonary edema: PLAN: Plan #Acute respiratory distress and hypoxia likely secondary to acute on chronic heart failure with preserved ejection fraction in setting of severe pulmonary hypertension and severe mitral valve regurgitation -Chest x-ray with concerns for edema?concern for flash pulmonary edema -Placed on BiPAP and admitted to ICU -IV Lasix -Cardiology consult -Echo 02/23 with EF of 60% with wall motion abnormalities, moderately severe mitral valve and tricuspid valve regurgitation with PASP of 83 -03/01: I's and O's, daily weights, repeat chest x-ray appears better than yesterday. Discussed with cardiology and given patient's mitral valve regurgitation it was recommended she be transferred. Patient accepted at [facility] and awaiting bed. Patient verbalized understanding #Elevated troponin -Suspect demand 2/2 fluid overload -Was started on heparin drip on admission however pending cardiology consultation -Aspirin -03/01: Heparin drip discontinued. Continue present management. Repeat echo demonstrated basal lateral wall hypokinesis but it is not suspected to be in- stent thrombosis and no need for emergent cath. Pt awaiting transfer #Suspected CKD unclear subtype -Admission BUN/Cr 41/1.87, baseline renal function primarily 1.3-1.6 during recent presentation but at discharge was 1.32 of note -03/01: Creatinine down to 1.62, continue supportive care, may have been cardio renal in nature leading to increased creatinine on admission, holding lisinopril given patient's hypotension #Coronary artery disease status post recent LIGIA and thrombectomy -02/20/23 with lateral STEMI s/p aspiration Thrombectomy and DEC to Proximal LCX -Optimize medical management #A-fib after STEMI -Given proximity to STEMI and resolution she was not treated with full dose anticoagulation and was monitored #DVT ppx: Lovenox sub q Theresa Marcial MD Time spent in the patient's overall evaluation,decision-making process, review of diagnostic data, adjustment of management, discussion with other providers, nursing nursing and ancillary staff involved in patient's care documentation, 40 minutes Charges/Coding Visit Charges Inpatient E&M: 70545 Subs Hosp L2
--- NOTE | 2023-03-01 07:51 | PCM.CONS.C ---
Assessment & Plan Assessment/Plan (1) Stented coronary artery: PLAN: Patient underwent angioplasty and stenting of the circumflex artery following a myocardial infarction. She does have residual papillary muscle dysfunction causing mitral regurgitation. She presented with elevated troponin but no chest pain and shortness of breath. I doubt this is due to stent thrombosis. The plan number to continue her on aspirin, ticagrelor, beta-maicol, high intensity statin. (2) Mitral regurgitation: PLAN: She does have moderately severe mitral regurgitation likely secondary to papillary muscle dysfunction, and mitral calcification. It appears she represented back to the hospital with flash pulmonary edema likely secondary to the worsening papillary muscle. She had missed 1 dose of ticagrelor. It is not clear whether there is some evidence of stent compromise. She will probably require evaluation of her mitral valve again and my recommendation will be to transfer her to a tertiary care facility where she can be evaluated with the valve team for them to consider the mitral valve clip. Arrangements will be made to transfer her to the [facility] and [facility]. Above discussed with her son (3) Pulmonary hypertension: PLAN: She does have severe pulmonary hypertension likely secondary to left heart disease. We will continue with Lasix and also spironolactone. HPI Consult Data Date of Consult: 03/01/23 HPI Narrative HPI Narrative: KIRK CARVER, is a 87 F who presents back to the emergency room in hospital after being discharged following a myocardial infarction for which she underwent angioplasty and stenting of the left circumflex artery. Her postoperative course was complicated with hypotension as well as having developed significant mitral regurgitation which was likely secondary to papillary muscle dysfunction. She was treated with guideline directed medical care including beta-blockers, LUIS MANUEL inhibitors, diuretics with Lasix as well as furosemide and titrated upwards slowly. She was eventually stable enough to be transferred out of the hospital and went home and then came back yesterday with shortness of breath. She apparently had not missed any of her diuretics but she did miss 1 dose of the ticagrelor. She denies any dizziness or diaphoresis near syncope or syncope. In the emergency room she had to be put on BiPAP and then subsequently was given intravenous Lasix with improvement. She is currently doing quite well. [facility] Medical History Arteriosclerosis of coronary artery in patient with history of myocardial infarction (02/20/23) Atrial fibrillation CKD (chronic kidney disease), stage III GERD (gastroesophageal reflux disease) History of pulmonary embolism HLD (hyperlipidemia) Pulmonary hypertension STEMI (ST elevation myocardial infarction) (02/20/23) Sustained ventricular tachycardia Home Medications calcium carbonate 600 mg calcium (1,500 mg) tablet 1,200 mg PO DAILY supplement 03/02/19 [History Last Taken Unknown] cholecalciferol (vitamin D3) 25 mcg (1,000 unit) tablet 1,000 unit PO DAILY supplement 03/02/19 [History Last Taken Unknown] fenofibrate 160 mg tablet 160 mg PO DAILY cholesterol 03/02/19 [History Last Taken Unknown] multivitamin-ferrous fumarate-folic acid 18 mg-400 mcg tablet 1 ea PO DAILY supplement 03/02/19 [History Last Taken Unknown] omega 9-dus-cad-fish oil 300 mg-1,000 mg capsule 2 cap PO DAILY supplement 03/02/19 [History Last Taken Unknown] vit C 250 mg-vit E 90 mg-zinc 40 mg-copper 1 [id number]-[id number] capsule 1 ea PO DAILY supplement 03/02/19 [History Last Taken Unknown] acetaminophen 500 mg tablet 1,000 mg (2 x 500 mg) PO Q8 pain 03/09/19 [Rx Last Taken Unknown] famotidine 20 mg tablet 20 mg PO DAILY #30 tabs 03/09/19 [Rx Last Taken Unknown] tumeric PO 1XD general health 02/20/23 [History Last Taken Unknown] aspirin 81 mg tablet,delayed release 81 mg PO DAILY@0800 #30 tabs 02/27/23 [Rx Last Taken Unknown] atorvastatin 40 mg tablet 40 mg PO QHS #30 tabs 02/27/23 [Rx Last Taken Unknown] furosemide 40 mg tablet 40 mg PO BID #60 tabs 02/27/23 [Rx Last Taken Unknown] lisinopril 2.5 mg tablet 2.5 mg PO DAILY #30 tabs 02/27/23 [Rx Last Taken Unknown] metoprolol succinate 100 mg tablet,extended release 24 hr 100 mg PO DAILY #30 tabs 02/27/23 [Rx Last Taken Unknown] potassium chloride 20 mEq tablet,extended release(part/cryst) (Klor-Con M) 20 meq PO BID #60 tabs 02/27/23 [Rx Last Taken Unknown] spironolactone 25 mg tablet 25 mg PO DAILY #30 tabs 02/27/23 [Rx Last Taken Unknown] ticagrelor 90 mg tablet 90 mg PO BID #60 tabs 02/27/23 [Rx Last Taken Unknown] Allergy/AdvReac Type Severity Reaction Status Date / Time gabapentin Allergy Other Verified 02/20/23 07:33 hydromorphone [From Dilaudid] Allergy Vomiting Verified 02/20/23 07:33 morphine Allergy Vomiting Verified 02/20/23 07:33 paregoric Allergy Vomiting Verified 02/20/23 07:33 Family History Mother Pulmonary embolism from massive PE following operative intervention. Father No problems noted. Surgical History History of back surgery History of carpal tunnel release of both wrists History of hip replacement History of knee surgery Stented coronary artery (02/20/23) Social History household members: family Smoking Status: Never smoker alcohol intake: never substance use type: does not use ROS Constitutional Constitutional: Denies fever(s) or weight loss Eyes Eyes: Reports systems reviewed and no addt'l complaints, except as documented ENT HEENT: Reports systems reviewed and no addt'l complaints, except as documented Cardiovascular Cardiovascular: Reports dyspnea at rest and dyspnea on exertion; Denies chest pain at rest, chest pain with activity, edema, palpitations or paroxysmal nocturnal dyspnea Respiratory/Chest Respiratory/Chest: Reports dyspnea on exertion, shortness of breath at rest and shortness of breath with exertion; Denies productive cough Gastrointestinal Gastrointestinal: Denies change in bowel habits, nausea, vomiting or weight changes Genitourinary Genitourinary: Denies difficulty urinating Musculoskeletal Musculoskeletal: Denies joint stiffness or muscle weakness Integumentary Integumentary: Denies lesions Neurologic Neurologic: Denies dizziness or syncope Psychiatric Psychiatric: Denies anxiety Endocrine Endocrinology: Denies excessive sweating or fatigue Hematologic/Lymphatic Hematologic/Lymphatic: Denies anemia Allergic/Immunologic Allergic/Immunologic: Denies seasonal rhinorrhea Physical Exam Const alert, oriented x3 and no apparent distress General Appearance: cooperative HEENT hearing grossly normal bilaterally Head and Scalp: atraumatic Eyes EOMs intact bilaterally Neck General: normal visual inspection Chest inspection of chest normal and palpation of chest normal Resp normal respiratory effort Auscultation: rales left Cardio regular rate, regular rhythm, S1 normal heart sound and S2 normal heart sound Jugular Venous Distention: JVD Heart Sounds: murmur systolic II/ blowing apex and axilla GI normal to inspection, nondistended, normoactive bowel sounds Extremity normal capillary refill and no pedal edema Peripheral Pulses: Yes pulses 2+ throughout and femoral pulses present Skin no rashes or lesions noted Neuro oriented x3 and CN's II-XII intact bilaterally Psych Appearance: grossly normal and appropriate Risk Stratification Risk Stratification Applicable: Yes Age >/= 65: Yes >/= 3 CAD Risk Factors (HTN, HLD, DM, family hx of CAD, or current smoker): Yes Aspirin Use in the Past 7 Days: Yes Severe Angina (>/= episodes in 24 hours): No EKG ST Changes >/= 0.5mm: Yes Positive Cardiac Marker: Yes LARA Risk Stratification Score: 5 LARA % Risk: 25% Risk Objective Data Vital Signs: Vital Signs Temp Pulse Resp BP Pulse Ox O2 Del Method O2 Flow Rate 97.4 F L 73 19 H 88/78 L 95 Nasal Cannula 4 03/01/23 03:00 03/01/23 07:00 03/01/23 07:00 03/01/23 07:00 03/01/23 07:00 03/01/23 07:00 03/01/23 07:00 FiO2 30 03/01/23 06:00 Oxygen Flow Rate (L/min) 4 Oxygen Delivery Method Nasal Cannula Weight: 193 lb 1.999 oz Body Mass Index (BMI) 38.9 Intake & Output: Intake and Output for Last 24 Hours 02/27/23 02/28/23 03/01/23 23:59 23:59 23:59 Intake Total 89 / 89 Output Total 550 / 550 Balance -461 / -461 Lab / Micro Data 03/01/23 04:30 03/01/23 04:30 Labs: Laboratory Results - last 24 hr 02/28/23 22:30: WBC 15.8 H, RBC 5.75 H, Hgb 15.1 H, Hct 50.4 H, MCV 87.7, MCH 26.3 L, MCHC 30.0 L, RDW Std Deviation 46.4 H, RDW Coeff of Maliha 14.6, Plt Count 494 H, MPV 10.4, Immature Gran % (Auto) 1.600 H, Neut % (Auto) 55.4, Lymph % (Auto) 33.1, [place] % (Auto) 6.9, Eos % (Auto) 2.3, Baso % (Auto) 0.7, Absolute Neuts (auto) 8.8 H, Absolute Lymphs (auto) 5.21 H, Nucleated RBC % 0, Differential Comment SCANNED, Sodium 137, Potassium 4.4, Chloride 101, Carbon Dioxide 29.0, Anion Gap 7, BUN 37 H, Creatinine 1.87 H, Estim Creat Clear Calc 31.36, Est GFR (MDRD) Af Amer 33 L, Est GFR (MDRD) Non-Af 27 L, BUN/Creatinine Ratio 19.8, Glucose 271 H, Calcium 10.4 H, Magnesium 2.6, Troponin I High Sens 5435 H* 02/28/23 23:25: Procalcitonin 0.13 H 03/01/23 00:35: APTT 21.6 L, Troponin I High Sens 4298 H* 03/01/23 04:30: WBC 13.6 H, RBC 4.77, Hgb 12.5, Hct 40.8, MCV 85.5, MCH 26.2 L, MCHC 30.6 L, RDW Std Deviation 44.4 H, RDW Coeff of Maliha 14.5, Plt Count 328, MPV 10.4, Immature Gran % (Auto) 1.300 H, Neut % (Auto) 64.9, Lymph % (Auto) 24.5, [place] % (Auto) 7.8, Eos % (Auto) 1.0, Baso % (Auto) 0.5, Absolute Neuts (auto) 8.8 H, Absolute Lymphs (auto) 3.33, Nucleated RBC % 0, Sodium 143, Potassium 4.0, Chloride 107, Carbon Dioxide 29.0, Anion Gap 7, BUN 37 H, Creatinine 1.62 H, Estim Creat Clear Calc 34.47, Est GFR (MDRD) Af Amer 39 L, Est GFR (MDRD) Non-Af 32 L, BUN/Creatinine Ratio 22.8 H, Glucose 114 H, Calcium 9.5, Total Bilirubin 0.80, AST 28, ALT 28, Alkaline Phosphatase 59, Troponin I High Sens 4156 H*, Total Protein 6.1 L, Albumin 2.4 L, Globulin 3.7, Albumin/Globulin Ratio 0.6 L Cardiology Labs/Tests 02/28/23 22:30: WBC 15.8 H, RBC 5.75 H, Hgb 15.1 H, Hct 50.4 H, MCV 87.7, MCH 26.3 L, MCHC 30.0 L, Plt Count 494 H, MPV 10.4, Immature Gran % (Auto) 1.600 H, Neut % (Auto) 55.4, Lymph % (Auto) 33.1, [place] % (Auto) 6.9, Eos % (Auto) 2.3, Baso % (Auto) 0.7, Absolute Neuts (auto) 8.8 H, Nucleated RBC % 0, Sodium 137, Potassium 4.4, Chloride 101, Carbon Dioxide 29.0, Anion Gap 7, BUN 37 H, Creatinine 1.87 H, Est GFR (MDRD) Af Amer 33 L, Est GFR (MDRD) Non-Af 27 L, BUN/Creatinine Ratio 19.8, Glucose 271 H, Calcium 10.4 H, Magnesium 2.6 03/01/23 00:35: APTT 21.6 L 03/01/23 04:30: WBC 13.6 H, RBC 4.77, Hgb 12.5, Hct 40.8, MCV 85.5, MCH 26.2 L, MCHC 30.6 L, Plt Count 328, MPV 10.4, Immature Gran % (Auto) 1.300 H, Neut % (Auto) 64.9, Lymph % (Auto) 24.5, [place] % (Auto) 7.8, Eos % (Auto) 1.0, Baso % (Auto) 0.5, Absolute Neuts (auto) 8.8 H, Nucleated RBC % 0, Sodium 143, Potassium 4.0, Chloride 107, Carbon Dioxide 29.0, Anion Gap 7, BUN 37 H, Creatinine 1.62 H, Est GFR (MDRD) Af Amer 39 L, Est GFR (MDRD) Non-Af 32 L, BUN/Creatinine Ratio 22.8 H, Glucose 114 H, Calcium 9.5, Total Bilirubin 0.80 Rhythm: EKG: ECHO: Stress Test: Cardiac Cath: PCI: CT Surgery: Holter monitor: EPS: PPM: CXR: Chest CT Scan: Radiography Diagnostic Testing: Radiology Impression Chest X-Ray 02/28/23 22:30 IMPRESSION: Bilateral pneumonia, pulmonary edema, or ARDS. Electronically Signed: Marcial Bridges MD at 23:10 EDT ,
[2023-03-01 08:00] LABS: Partial Thromboplast Time > 200.0 Seconds (24.1-36.2)
--- NOTE | 2023-03-01 08:22 | CASEMGMT ---
According to [facility] website, the following tertiary facilities are in network: [facility], [facility], [place], [facility], [facility], [facility], [facility] and .
[2023-03-01] MEDS: TICAGRELOR 90 MG TABLET PO (08:30)
[2023-03-01] MEDS: Spironolactone 25 MG Tablet PO (08:30)
[2023-03-01] MEDS: Aspirin E.C. 81 MG Tablet PO (08:32)
[2023-03-01] MEDS: Potassium Chloride Oral Tablet 20 MEQ PO (08:33)
[2023-03-01] MEDS: Furosemide 40 MG/4 ML Vial IV (08:34)
[2023-03-01] MEDS: Famotidine 20 MG Tablet PO (08:34)
[2023-03-01] MEDS: Menthol/Lanolin/Calamine/Znox 113 GM Tube 1 APPLIC TOPICAL (08:34)
[2023-03-01] MEDS: Fenofibrate 145 MG Tablet PO (08:35)
[2023-03-01] MEDS: Flu Vacc QS2023-24(65YR UP)/PF 240 MCG/0.7 ML Syringe IM (10:48)
--- NOTE | 2023-03-01 11:18 | ECHOL_ITS ---
Reason For Study: s/p IA Procedure This was a limited 2D transthoracic echocardiogram. Exam performed portable in ICU/CCU. Left Ventricle Normal LV size. Left ventricular systolic function is normal. Mild segmental systolic dysfunction (see wall motion). Lateral-Basal: Severely Hypokinetic. Mid-Lateral : Hypokinetic. The rest of the wall segments are normal. Right Ventricle Normal RV size. Normal systolic function. Mitral Valve There is mild to moderate mitral annular calcification. Bileaflet diffuse mitral valve thickening. Non Coaptation. Severe (4+) mitral valve insufficiency. Tricuspid Valve Normal tricuspid valve. Severe (4+) tricuspid valve insufficiency. Severe pulmonary hypertension. Pulmonary artery systolic pressure is 80 mmHg. Great Vessels Normal aortic root. Pericardium/Pleural No pericardial effusion. Moderate size left pleural effusion. MMode/2D Measurements & Calculations LVIDd: 4.4 cm IVSd: 1.2 cm LVIDs: 3.3 cm LVPWd: 0.72 cm FS: 25.7 % Doppler Measurements & Calculations TR max lisa: 431.7 cm/sec TR max P.5 mmHg ECHO/Echo, Limited Study Interpretation Summary Normal LV size. Left ventricular systolic function is normal. Mild segmental systolic dysfunction (see wall motion). Non Coaptation Severe (4+) mitral valve insufficiency. Pulmonary artery systolic pressure is 80 mmHg. Ordering Physician: Leo Alex Referring Physician: Eddie Hoffman Performed By: Ana Paula Johnson, RDCS, RVT
[2023-03-01] MEDS: 0.9% Normal Saline (250mL Bag) 250 ML 999 ML IV (11:38)
--- NOTE | 2023-03-01 12:20 | PN.CARD_ITS ---
Subjective Subjective Patient seen and evaluated. Called about more shortness of breath as well as hypotension. Objective Data Vital Signs: Vital Signs Temp Pulse Resp BP Pulse Ox O2 Del Method O2 Flow Rate 97.7 F L 83 20 H 99/65 95 Nasal Cannula 4 03/01/23 08:00 03/01/23 12:00 03/01/23 12:00 03/01/23 12:00 03/01/23 12:00 03/01/23 12:00 03/01/23 12:00 FiO2 30 03/01/23 06:00 Oxygen Flow Rate (L/min) 4 Oxygen Delivery Method Nasal Cannula Weight: 193 lb 1.999 oz Body Mass Index (BMI) 38.9 Intake & Output: Intake and Output for Last 24 Hours 02/27/23 02/28/23 03/01/23 23:59 23:59 23:59 Intake Total 339 / 339 Output Total 750 / 750 Balance -411 / -411 Lab / Micro Data 03/01/23 04:30 03/01/23 04:30 Labs: Laboratory Results - last 24 hr 02/28/23 22:30: WBC 15.8 H, RBC 5.75 H, Hgb 15.1 H, Hct 50.4 H, MCV 87.7, MCH 26.3 L, MCHC 30.0 L, RDW Std Deviation 46.4 H, RDW Coeff of Maliha 14.6, Plt Count 494 H, MPV 10.4, Immature Gran % (Auto) 1.600 H, Neut % (Auto) 55.4, Lymph % (Auto) 33.1, [place] % (Auto) 6.9, Eos % (Auto) 2.3, Baso % (Auto) 0.7, Absolute Neuts (auto) 8.8 H, Absolute Lymphs (auto) 5.21 H, Nucleated RBC % 0, Differential Comment SCANNED, Sodium 137, Potassium 4.4, Chloride 101, Carbon Dioxide 29.0, Anion Gap 7, BUN 37 H, Creatinine 1.87 H, Estim Creat Clear Calc 31.36, Est GFR (MDRD) Af Amer 33 L, Est GFR (MDRD) Non-Af 27 L, BUN/Creatinine Ratio 19.8, Glucose 271 H, Calcium 10.4 H, Magnesium 2.6, Troponin I High Sens 5435 H* 02/28/23 23:25: Procalcitonin 0.13 H 03/01/23 00:35: APTT 21.6 L, Troponin I High Sens 4298 H* 03/01/23 04:30: WBC 13.6 H, RBC 4.77, Hgb 12.5, Hct 40.8, MCV 85.5, MCH 26.2 L, MCHC 30.6 L, RDW Std Deviation 44.4 H, RDW Coeff of [place] 14.5, Plt Count 328, MPV 10.4, Immature Gran % (Auto) 1.300 H, Neut % (Auto) 64.9, Lymph % (Auto) 24.5, [place] % (Auto) 7.8, Eos % (Auto) 1.0, Baso % (Auto) 0.5, Absolute Neuts (auto) 8.8 H, Absolute Lymphs (auto) 3.33, Nucleated RBC % 0, Sodium 143, Potassium 4.0, Chloride 107, Carbon Dioxide 29.0, Anion Gap 7, BUN 37 H, Creatinine 1.62 H , Estim Creat Clear Calc 34.47, Est GFR (MDRD) Af Amer 39 L, Est GFR (MDRD) Non- Af 32 L, BUN/Creatinine Ratio 22.8 H, Glucose 114 H, Calcium 9.5, Total Bilirubin 0.80, AST 28, ALT 28, Alkaline Phosphatase 59, Troponin I High Sens 4156 H*, Total Protein 6.1 L, Albumin 2.4 L, Globulin 3.7, Albumin/Globulin Ra beth 0.6 L 03/01/23 06:55: APTT > 200.0 H* Cardiology Labs/Tests 02/28/23 22:30: WBC 15.8 H, RBC 5.75 H, Hgb 15.1 H, Hct 50.4 H, MCV 87.7, MCH 26.3 L, MCHC 30.0 L, Plt Count 494 H, MPV 10.4, Immature Gran % (Auto) 1.600 H, Neut % (Auto) 55.4, Lymph % (Auto) 33.1, [place] % (Auto) 6.9, Eos % (Auto) 2.3, Baso % (Auto) 0.7, Absolute Neuts (auto) 8.8 H, Nucleated RBC % 0, Sodium 137, Potassium 4.4, Chloride 101, Carbon Dioxide 29.0, Anion Gap 7, BUN 37 H, Creatinine 1.87 H, Est GFR (MDRD) Af Amer 33 L, Est GFR (MDRD) Non-Af 27 L, BUN/Creatinine Ratio 19.8, Glucose 271 H, Calcium 10.4 H, Magnesium 2.6 03/01/23 00:35: APTT 21.6 L 03/01/23 04:30: WBC 13.6 H, RBC 4.77, Hgb 12.5, Hct 40.8, MCV 85.5, MCH 26.2 L, MCHC 30.6 L, Plt Count 328, MPV 10.4, Immature Gran % (Auto) 1.300 H, Neut % (Auto) 64.9, Lymph % (Auto) 24.5, [place] % (Auto) 7.8, Eos % (Auto) 1.0, Baso % (Auto) 0.5, Absolute Neuts (auto) 8.8 H, Nucleated RBC % 0, Sodium 143, Po tassium 4.0, Chloride 107, Carbon Dioxide 29.0, Anion Gap 7, BUN 37 H, Creatinine 1.62 H, Est GFR (MDRD) Af Amer 39 L, Est GFR (MDRD) Non-Af 32 L, BUN/Creatinine Ratio 22.8 H, Glucose 114 H, Calcium 9.5, Total Bilirubin 0.80 03/01/23 06:55: APTT > 200.0 H* Rhythm: EKG: ECHO: Stress Test: Cardiac Cath: PCI: CT Surgery: Holter monitor: EPS: PPM: CXR: Chest CT Scan: Radiography Diagnostic Testing: Radiology Impression Chest X-Ray 02/28/23 22:30 IMPRESSION: Bilateral pneumonia, pulmonary edema, or ARDS. Electronically Signed: Marcial Bridges MD at 23:10 EDT , Chest X-Ray 03/01/23 05:55 IMPRESSION: Decreased pulmonary edema. Bibasilar atelectasis or pneumonia, mildly decreased on the right. Electronically Signed: Martha Acuna MD at 9:54 EDT , Physical Exam Const alert, oriented x3 and no apparent distress General Appearance: cooperative HEENT hearing grossly normal bilaterally Head and Scalp: atraumatic Eyes EOMs intact bilaterally Neck General: normal visual inspection Chest inspection of chest normal and palpation of chest normal Resp normal respiratory effort Auscultation: rales left Cardio regular rate, regular rhythm, S1 normal heart sound and S2 normal heart sound Jugular Venous Distention: JVD Heart Sounds: murmur systolic II/ blowing apex and axilla GI normal to inspection, nondistended, normoactive bowel sounds Extremity normal capillary refill and no pedal edema Peripheral Pulses: Yes pulses 2+ throughout and femoral pulses present Skin no rashes or lesions noted Neuro oriented x3 and CN's II-XII intact bilaterally Psych Appearance: grossly normal and appropriate Assessment & Plan Assessment/Plan (1) Stented coronary artery: PLAN: Patient underwent angioplasty and stenting of the circumflex artery following a myocardial infarction. She does have residual papillary muscle dysfunction causing mitral regurgitation. She presented with elevated troponin but no chest pain and shortness of breath. I doubt this is due to stent thrombosis. * A repeat echocardiogram was performed which demonstrated the basal lateral wall to be hypokinetic. After discussing with interventionalists it does not appear that this is due to stent thrombosis and there is no indication at this time to take her back to the cardiac catheterization lab for reevaluation. This was discussed with both interventional list. (2) Mitral regurgitation: PLAN: She does have moderately severe mitral regurgitation likely secondary to papillary muscle dysfunction, and mitral calcification. It appears she represented back to the hospital with flash pulmonary edema likely secondary to the worsening papillary muscle. She had missed 1 dose of ticagrelor. It is not clear whether there is some evidence of stent compromise. * Repeat echocardiogram demonstrated preserved ejection fraction with severe mitral regurgitation with known coaptation of the leaflets. * I did discuss with her extensively about whether she would want to be int ubated or have an intra-aortic balloon pump placed prior to possible transfer. This was also discussed with his son on the phone to the hearing of the nurses. It was decided by the patient as well as her son that they did not want any of these measures at this time. She will be made comfortable. This was relayed to her primary residential building inspector as well as to the hospitalist. Her overall situation is critical and her prognosis is rather guarded. (3) Pulmonary hypertension: PLAN: She does have severe pulmonary hypertension likely secondary to left heart disease. We will continue with Lasix and also spironolactone.
--- NOTE | 2023-03-01 13:27 | DCINST_ITS ---
Discharge Instructions Diet Discharge Diet: - (-DASH diet, 3000 mg sodium restriction, 2 L fluid restriction) Follow Up Care Test Results: Test results from this visit will be discussed in further detail at your follow- up appointment, if applicable. Discharge Plan Admission Admit Date/Time: 02/28/23 22:53 Primary Reason for Your Visit: Shortness of breath Attending Provider: Theresa Marcial Primary Care Provider: Eddie Hoffman Consulting Providers: Florina Baltazar; Leo Alex; Leyla Pastor Instructions Patient Instructions: Heart Valve Problems, Mitral Insufficiency Discharge Orders/Prescriptions Prescriptions: No Action calcium carbonate 600 MG tablet 1,200 mg PO DAILY fenofibrate 160 MG tablet 160 mg PO DAILY cholecalciferol (vitamin D3) 1,000 UNIT tablet 1,000 unit PO DAILY esaedadroxpp-mmjs-gvqwi acid 1 EACH tablet 1 ea PO DAILY omega 7-srv-eqf-fish oil 1 EACH capsule 2 cap PO DAILY Patient Comments: stop 5 days preop vit C,W-Zg-fqzdb-lutein-zeaxan 1 EACH capsule 1 ea PO DAILY Patient Comments: stop 5 days preop acetaminophen 500 MG tablet 1,000 mg PO Q8 0RF famotidine 20 MG tablet 20 mg PO DAILY Qty: 30 0RF tumeric 2 TAB PO 1XD aspirin 81 mg Tablet,Delayed Release (Dr/Ec) 81 mg PO DAILY@0800 Qty: 30 2RF furosemide 40 mg Tablet 40 mg PO BID Qty: 60 2RF atorvastatin 40 mg Tablet 40 mg PO QHS Qty: 30 2RF metoprolol succinate 100 mg Tablet Extended Release 24 Hr 100 mg PO DAILY Qty: 30 2RF spironolactone 25 mg Tablet 25 mg PO DAILY Qty: 30 2RF lisinopril 2.5 mg tablet 2.5 mg PO DAILY Qty: 30 2RF ticagrelor 90 mg tablet 90 mg PO BID Qty: 60 2RF potassium chloride [Klor-Con M20] 20 mEq tablet,ER particles/crystals 20 meq PO BID Qty: 60 1RF Referrals / Follow Up: Estelle Villegas MD [Med Staff - Active Staff] - Eddie Hoffman MD [Primary Care Provider] - Disposition Disposition (needs filled in before D/C Order can be placed): Acute [facility] Hospital
--- NOTE | 2023-03-01 13:30 | PCM.DC.SUM ---
Providers Date of Admission: 02/28/23 Date of Discharge: 03/01/23 Primary Care Physician: Dr. Eddie Hoffman MD Consultations 02/28/23 23:39 Consult: Cardiology Routine Consulting Provider: Leo Alex Reason for Consult: Resp failure, Flash pulm edema, recent STEMI EMERGENT Consult: No MD Notified: Yes Date Notified: 02/28/23 Time Notified: 22:54 Method of Notification: Text Reason For Visit: ACUTE RESP FAILURE, FLASH PULMONARY EDEMA, RECENT Diagnosis Discharge Diagnosis (1) Flash pulmonary edema: Status: Acute Code(s): J81.0 - Acute pulmonary edema Plan #Acute respiratory distress and hypoxia likely secondary to acute on chronic heart failure with preserved ejection fraction in setting #Elevated troponin #Suspected CKD unclear subtype #Coronary artery disease status post recent LIGIA and thrombectomy #A-fib after STEMI Medications at Discharge Home Medications calcium carbonate 600 mg calcium (1,500 mg) tablet 1,200 mg PO DAILY supplement 03/02/19 cholecalciferol (vitamin D3) 25 mcg (1,000 unit) tablet 1,000 unit PO DAILY supplement 03/02/19 fenofibrate 160 mg tablet 160 mg PO DAILY cholesterol 03/02/19 multivitamin-ferrous fumarate-folic acid 18 mg-400 mcg tablet 1 ea PO DAILY supplement 03/02/19 omega 8-efg-ffl-fish oil 300 mg-1,000 mg capsule 2 cap PO DAILY supplement 03/02/19 vit C 250 mg-vit E 90 mg-zinc 40 mg-copper 1 lk-xruzyj-luarlu capsule 1 ea PO DAILY supplement 03/02/19 acetaminophen 500 mg tablet 1,000 mg (2 x 500 mg) PO Q8 pain 03/09/19 famotidine 20 mg tablet 20 mg PO DAILY #30 tabs 03/09/19 tumeric PO 1XD general health 02/20/23 aspirin 81 mg tablet,delayed release 81 mg PO DAILY@0800 #30 tabs 02/27/23 atorvastatin 40 mg tablet 40 mg PO QHS #30 tabs 02/27/23 furosemide 40 mg tablet 40 mg PO BID #60 tabs 02/27/23 lisinopril 2.5 mg tablet 2.5 mg PO DAILY #30 tabs 02/27/23 metoprolol succinate 100 mg tablet,extended release 24 hr 100 mg PO DAILY #30 tabs 02/27/23 potassium chloride 20 mEq tablet,extended release(part/cryst) (Klor-Con M) 20 meq PO BID #60 tabs 02/27/23 spironolactone 25 mg tablet 25 mg PO DAILY #30 tabs 02/27/23 ticagrelor 90 mg tablet 90 mg PO BID #60 tabs 02/27/23 Hospital Course Summary of Care Provided Minutes Spent on Discharge: 40 Hospital Course: 87-year-old female with a history of GERD, CKD unclear subtype, recent lateral STEMI with aspiration thrombectomy and DC to proximal LCx, heart failure preserved ejection fraction presented to 02/28/2023 due to severe respiratory distress. Exam, history, imaging consistent with pulmonary edema, concerns for flash pulmonary edema given her mitral valve regurgitation. She was placed on BiPAP and IV diuresis. Cardiology evaluated and recommended transfer for evaluation for mitral valve intervention and patient accepted to [facility]. While awaiting a bed patient became hypotensive and repeat echo showed worsening mitral regurg. Patient initially refused balloon pump, was started on dopamine and then was potentially agreeable to balloon pump but pressure improved and she got a bed at [facility] and was transferred MARIA LUISA Physical Exam Narrative General: Alert, no acute distress HEENT: Atraumatic, normocephalic Eyes: Anicteric, normal conjunctiva, extraocular movements grossly intact Neck: Supple Respiratory: Crackles at the bases Cardiovascular: Regular rate GI: Soft, nontender, nondistended Extremities: No edema, legs slightly sore on palpation Musculoskeletal: Moving all extremities Neuro: No overt focal neurological deficits Skin: No rashes appreciated Psych: Cooperative Medical Records Data Medical Nutrition Assessment Dietitian: Malnutrition Criteria Met Start: 03/01/23 09:23 Freq: Status: Active Protocol: Document 03/01/23 09:23 LIZ (Rec: 03/01/23 09:24 [facility] Desktop) Nutrition Malnutrition Evidence of Malnutrition Exists Yes Malnutrition (severe): Acute Illness/Injury Evidenced By Suboptimal Energy Intake ( Severe),Weight Loss (Severe) Clinical Problem Unintended Weight Loss Etiology related to inadequate energy intake Signs/Symptoms as evidenced by <50% po intake of est nutritional needs and 2.6% unintended wt loss x 1 wk Status Active Problem Recommendation Dietitian Recommendations/Changes Will liberalize diet to Regular No Added Salt d/t signs and symptoms of malnutrition Will provide 4 oz chocolate ensure compact tid w/ meals for increased nutrition if consumed. Weight / BMI Weight Weight: 87.6 kg Body Mass Index (BMI) 38.9 ABG / Lab / Microbiology Data 03/01/23 04:30 03/01/23 04:30 Laboratory: Laboratory Results - last 24 hr 02/28/23 22:30: WBC 15.8 H, RBC 5.75 H, Hgb 15.1 H, Hct 50.4 H, MCV 87.7, MCH 26.3 L, MCHC 30.0 L, RDW Std Deviation 46.4 H, RDW Coeff of [place]iha 14.6, Plt Count 494 H, MPV 10.4, Immature Gran % (Auto) 1.600 H, Neut % (Auto) 55.4, Lymph % (Auto) 33.1, [place] % (Auto) 6.9, Eos % (Auto) 2.3, Baso % (Auto) 0.7, Absolute Neuts (auto) 8.8 H, Absolute Lymphs (auto) 5.21 H, Nucleated RBC % 0, Differential Comment SCANNED, Sodium 137, Potassium 4.4, Chloride 101, Carbon Dioxide 29.0, Anion Gap 7, BUN 37 H, Creatinine 1.87 H, Estim Creat Clear Calc 31.36, Est GFR (MDRD) Af Amer 33 L, Est GFR (MDRD) Non-Af 27 L, BUN/Creatinine Ratio 19.8, Glucose 271 H, Calcium 10.4 H, Magnesium 2.6, Troponin I High Sens 5435 H* 02/28/23 23:25: Procalcitonin 0.13 H 03/01/23 00:35: APTT 21.6 L, Troponin I High Sens 4298 H* 03/01/23 04:30: WBC 13.6 H, RBC 4.77, Hgb 12.5, Hct 40.8, MCV 85.5, MCH 26.2 L, MCHC 30.6 L, RDW Std Deviation 44.4 H, RDW Coeff of [place] 14.5, Plt Count 328, MPV 10.4, Immature Gran % (Auto) 1.300 H, Neut % (Auto) 64.9, Lymph % (Auto) 24.5, [place] % (Auto) 7.8, Eos % (Auto) 1.0, Baso % (Auto) 0.5, Absolute Neuts (auto) 8.8 H, Absolute Lymphs (auto) 3.33, Nucleated RBC % 0, Sodium 143, Potassium 4.0, Chloride 107, Carbon Dioxide 29.0, Anion Gap 7, BUN 37 H, Creatinine 1.62 H, Estim Creat Clear Calc 34.47, Est GFR (MDRD) Af Amer 39 L, Est GFR (MDRD) Non-Af 32 L, BUN/Creatinine Ratio 22.8 H, Glucose 114 H, Calcium 9.5, Total Bilirubin 0.80, AST 28, ALT 28, Alkaline Phosphatase 59, Troponin I High Sens 4156 H*, Total Protein 6.1 L, Albumin 2.4 L, Globulin 3.7, Albumin/Globulin Ratio 0.6 L 03/01/23 06:55: APTT > 200.0 H* Radiography Diagnostic Testing: Radiology Impression Chest X-Ray 02/28/23 22:30 IMPRESSION: Bilateral pneumonia, pulmonary edema, or ARDS. Electronically Signed: Marcial Bridges MD at 23:10 EDT , Chest X-Ray 03/01/23 05:55 IMPRESSION: Decreased pulmonary edema. Bibasilar atelectasis or pneumonia, mildly decreased on the right. Electronically Signed: Martha Acuna MD at 9:54 EDT , Echocardiogram 03/01/23 11:18 Interpretation Summary Normal LV size. Left ventricular systolic function is normal. Mild segmental systolic dysfunction (see wall motion). Non Coaptation Severe (4+) mitral valve insufficiency. Pulmonary artery systolic pressure is 80 mmHg. Ordering Physician: Leo Alex Referring Physician: Eddie Hoffman Performed By: Ana Paula Johnson, GERALD, RVT D/C Instructions Discharge Diet: - (-DASH diet, 3000 mg sodium restriction, 2 L fluid restriction) Meaningful Use Info Meaningful Use Diagnoses (Choose all that apply): None applicable Discharge Plan Admission Admit Date/Time: 02/28/23 22:53 Primary Reason for Your Visit: Shortness of breath Attending Provider: Theresa Marcial Primary Care Provider: Eddie Hoffman Consulting Providers: Florina Baltazar; Leo Alex; Leyla Pastor Instructions Patient Instructions: Heart Valve Problems, Mitral Insufficiency Discharge Orders/Prescriptions Prescriptions: No Action calcium carbonate 600 MG tablet 1,200 mg PO DAILY fenofibrate 160 MG tablet 160 mg PO DAILY cholecalciferol (vitamin D3) 1,000 UNIT tablet 1,000 unit PO DAILY cdhrrsrnbyfz-hhzc-xagnp acid 1 EACH tablet 1 ea PO DAILY omega 8-toa-skf-fish oil 1 EACH capsule 2 cap PO DAILY Patient Comments: stop 5 days preop vit C,W-Ax-qebgx-lutein-zeaxan 1 EACH capsule 1 ea PO DAILY Patient Comments: stop 5 days preop acetaminophen 500 MG tablet 1,000 mg PO Q8 0RF famotidine 20 MG tablet 20 mg PO DAILY Qty: 30 0RF tumeric 2 TAB PO 1XD aspirin 81 mg Tablet,Delayed Release (Dr/Ec) 81 mg PO DAILY@0800 Qty: 30 2RF furosemide 40 mg Tablet 40 mg PO BID Qty: 60 2RF atorvastatin 40 mg Tablet 40 mg PO QHS Qty: 30 2RF metoprolol succinate 100 mg Tablet Extended Release 24 Hr 100 mg PO DAILY Qty: 30 2RF spironolactone 25 mg Tablet 25 mg PO DAILY Qty: 30 2RF lisinopril 2.5 mg tablet 2.5 mg PO DAILY Qty: 30 2RF ticagrelor 90 mg tablet 90 mg PO BID Qty: 60 2RF potassium chloride [Klor-Con M20] 20 mEq tablet,ER particles/crystals 20 meq PO BID Qty: 60 1RF Referrals / Follow Up: Estelle Villegas MD [Med Staff - Active Staff] - Eddie Hoffman MD [Primary Care Provider] - Disposition Disposition (needs filled in before D/C Order can be placed): Acute Care Hospital Charges/Coding Visit Charges Inpatient E&M: 16347 Disch Hosp >30min
== END 2023-03-01 15:05 | disposition short-term general hospital (02) | DRG 321 ==
LOC: ED 22:40 → ICU 23:01
PROVIDERS: Admitting Provider Family Medicine; Emergency Provider Emergency Medicine; PCP Family Medicine; Visit Provider Internal Medicine
DX: I21.29 ST elevation (STEMI) myocardial infarction involving other sites (principal); J81.0 Acute pulmonary edema; J96.01 Acute respiratory failure with hypoxia; I50.33 Acute on chronic diastolic (congestive) heart failure; I13.0 Hypertensive heart and chronic kidney disease with heart failure and stage 1 through stage 4 chronic kidney disease, or unspecified chronic kidney disease; I27.20 Pulmonary hypertension, unspecified; N18.30 Chronic kidney disease, stage 3 unspecified; I48.0 Paroxysmal atrial fibrillation; I08.1 Rheumatic disorders of both mitral and tricuspid valves; E78.5 Hyperlipidemia, unspecified; K21.9 Gastro-esophageal reflux disease without esophagitis; I25.10 Atherosclerotic heart disease of native coronary artery without angina pectoris; E87.6 Hypokalemia; Z79.82 Long term (current) use of aspirin; Z79.02 Long term (current) use of antithrombotics/antiplatelets; Z95.5 Presence of coronary angioplasty implant and graft; Z79.899 Other long term (current) drug therapy; Z66 Do not resuscitate; T42.6X5A Adverse effect of other antiepileptic and sedative-hypnotic drugs, initial encounter; G89.29 Other chronic pain
CPT/HCPCS: 36415; 36600; 70450; 71045; 71275; 76705; 80048; 80053; 80061; 82803; 83735; 83880; 84145; 84443; 84484; 85025; 85027; 85347; 85610; 85730; 92941; 92973; 93005; 93306; 93308; 93458; 94002; 94003; 94640; 94668; 94762; 97162; 97166; 97530; 97535; 97802; 99282; 99285; C1757; C1769; J7030; J7050; Q9957; Q9967; 90662; A4216; C1725; C1874; C1887; C1894; C8929; C9606; J1940; J2405; J3475; J3490